=== PATIENT | male | born 1960 | race Caucasian/White ===

== ENCOUNTER → 2016-10-15 | Outpatient (REF) | payer OTHER ==
[~2016-10-15] MED LIST: ASPI1TAB PO; ATOR1TAB21 PO; CORE6.25 PO; GLUCTAB PO; HYDR-4266 PO; ISOS20TAB PO; MULT1TAB10 PO; PRIL20CA PO; SYNT112T2 PO; TORS100T12 PO; TRAD5TAB PO; VITAPRTA PO
[2016-10-15 19:02] LABS: PERCENT SATURATION 18.5 % (19.7-37.4)
== END ==
LOC: M LAB REF 16:55
PROVIDERS: ATTEND Internal Medicine Nephrology
DX: D50.9 Iron deficiency anemia, unspecified (principal)

== ENCOUNTER → 2016-11-12 | Outpatient (CLI) | payer OTHER ==
[~2016-11-12] MED LIST changes: -PRIL20CA PO; +PRIL20CA9 PO; +TORS100T PO; -TORS100T12 PO
[2016-11-12 10:17] LABS: FREE T4 1.2 NG/DL (0.76-1.46)
== END ==
LOC: M LAB 08:22
PROVIDERS: ATTEND Family Medicine
DX: E03.9 Hypothyroidism, unspecified (principal)

== ENCOUNTER → 2016-11-20 | Outpatient (CLI) | payer OTHER ==
[2016-11-20 13:26] LABS: ALBUMIN 3.8 GM/DL (3.2-5.2); CALCIUM LEVEL 8.9 MG/DL (8.5-10.1); CREATININE FOR GFR 2.17 MG/DL (0.70-1.30); GLOMERULAR FILTRATION RATE 33.8 (>56); MAGNESIUM LEVEL 2.7 MG/DL (1.8-2.4); PHOSPHORUS LEVEL 3.6 MG/DL (2.5-4.9); POTASSIUM SERUM 4.5 MEQ/L (3.5-5.1)
== END ==
LOC: M LAB 12:13
PROVIDERS: ATTEND Family Medicine
DX: N18.4 Chronic kidney disease, stage 4 (severe) (principal)

== ENCOUNTER → 2016-12-24 | Outpatient (REF) | payer OTHER | LOC: M SFHCPLAZ 10:44 | PROVIDERS: ATTEND Family Medicine | DX: E11.9 Type 2 diabetes mellitus without complications (principal); Z53.9 Procedure and treatment not carried out, unspecified reason ==

== ENCOUNTER → 2017-01-19 | Outpatient (CLI) | payer OTHER ==
[2017-01-19 13:16] LABS: ALBUMIN 3.8 GM/DL (3.2-5.2); CALCIUM LEVEL 8.7 MG/DL (8.5-10.1); CREATININE FOR GFR 3.2 MG/DL (0.70-1.30); GLOMERULAR FILTRATION RATE 21.6 (>56); PHOSPHORUS LEVEL 4.6 MG/DL (2.5-4.9); POTASSIUM SERUM 4.4 MEQ/L (3.5-5.1)
== END ==
LOC: M LAB 11:58
PROVIDERS: ATTEND Family Medicine
DX: E11.9 Type 2 diabetes mellitus without complications (principal)

== ENCOUNTER → 2017-01-26 | Outpatient (REF) | payer OTHER | LOC: M SFHCPLAZ 13:16 | PROVIDERS: ATTEND Family Medicine | DX: E11.9 Type 2 diabetes mellitus without complications (principal) ==

== ENCOUNTER → 2017-02-17 | Outpatient (CLI) | payer OTHER | LOC: M LAB 07:13 | PROVIDERS: ATTEND Family Medicine | DX: E03.9 Hypothyroidism, unspecified (principal) ==

== ENCOUNTER → 2017-03-09 | Outpatient (REF) | payer OTHER | LOC: M SFHCPLAZ 09:51 | PROVIDERS: ATTEND Family Medicine | DX: E11.9 Type 2 diabetes mellitus without complications (principal); N18.4 Chronic kidney disease, stage 4 (severe) ==

== ENCOUNTER → 2017-04-10 | Outpatient (CLI) | payer OTHER ==
[~2017-04-10] MED LIST changes: +HYDR-3910 PO; -HYDR-4266 PO
[2017-04-10 08:37] LABS: ALBUMIN 3.6 GM/DL (3.2-5.2); CREATININE FOR GFR 1.95 MG/DL (0.70-1.30); GLOMERULAR FILTRATION RATE 38.2 (>56); PHOSPHORUS LEVEL 3.4 MG/DL (2.5-4.9)
[2017-04-10 08:44] LABS: POTASSIUM SERUM 5.2 MEQ/L (3.5-5.1)
== END ==
LOC: M LAB 07:48
PROVIDERS: ATTEND Family Medicine
DX: N18.4 Chronic kidney disease, stage 4 (severe) (principal); E11.9 Type 2 diabetes mellitus without complications

== ENCOUNTER → 2017-06-12 | Outpatient (CLI) | payer OTHER ==
[2017-06-12 17:30] LABS: CALCIUM LEVEL 8.3 MG/DL (8.5-10.1); CREATININE FOR GFR 1.81 MG/DL (0.70-1.30); GLOMERULAR FILTRATION RATE 41.6 (>56); POTASSIUM SERUM 4.2 MEQ/L (3.5-5.1)
== END ==
LOC: M LAB 15:24
PROVIDERS: ATTEND Nurse Practitioner Family
DX: E87.5 Hyperkalemia (principal)

== ENCOUNTER → 2017-06-25 | Outpatient (REF) | payer OTHER ==
[2017-06-25 14:42] LABS: PERCENT SATURATION 21.1 % (19.7-50.0)
== END ==
LOC: M LAB REF 09:08
PROVIDERS: ATTEND Internal Medicine Nephrology
DX: D50.9 Iron deficiency anemia, unspecified (principal)

== ENCOUNTER → 2017-07-06 | Outpatient (CLI) | payer OTHER ==
[2017-07-06 15:15] LABS: MEAN CORPUSCULAR HEMOGLOBIN 28.7 pg (27.0-33.0); MEAN CORPUSCULAR HGB CONC 32.3 g/dl (32.0-36.5); MEAN CORPUSCULAR VOLUME 88.9 fl (80.0-96.0); RED CELL DISTRIBUTION WIDTH 15.4 % (11.5-14.5); WHITE BLOOD COUNT 7.4 10^3/uL (4.0-10.0)
== END ==
LOC: M LAB 14:24
PROVIDERS: ATTEND Nurse Practitioner Family
DX: D64.9 Anemia, unspecified (principal)

== ENCOUNTER → 2017-08-14 | Outpatient (CLI) | payer OTHER | LOC: M LAB 13:46 | PROVIDERS: ATTEND Family Medicine | DX: E11.9 Type 2 diabetes mellitus without complications (principal) ==

== ENCOUNTER → 2017-10-01 | Outpatient (REF) | payer OTHER | LOC: M LAB REF 13:10 | DX: D23.61 Other benign neoplasm of skin of right upper limb, including shoulder (principal) ==

== ENCOUNTER → 2018-01-04 | Outpatient (CLI) | payer OTHER ==
[2018-01-04 14:54] LABS: ALBUMIN 3.9 GM/DL (3.2-5.2); ANION GAP 6 MEQ/L (8-16); BLOOD UREA NITROGEN 50 MG/DL (7-18); CARBON DIOXIDE LEVEL 28 MEQ/L (21-32); CHLORIDE LEVEL 109 MEQ/L (98-107); CREATININE FOR GFR 2.36 MG/DL (0.70-1.30); GLOMERULAR FILTRATION RATE 30.5 (>56); GLUCOSE, FASTING 108 MG/DL (70-100); PHOSPHORUS LEVEL 4.1 MG/DL (2.5-4.9); POTASSIUM SERUM 4.3 MEQ/L (3.5-5.1); SODIUM LEVEL 143 MEQ/L (136-145)
== END ==
LOC: M LAB 13:45
DX: I50.42 Chronic combined systolic (congestive) and diastolic (congestive) heart failure (principal)
CPT/HCPCS: 80069

== ENCOUNTER 2018-01-26 10:19 | Inpatient (IN) | payer OTHER ==
[2018-01-26 11:32] LABS: BASO # 0.1 10^3/uL (0.0-0.2); BASO % 0.9 % (0.0-1.0); EOS # 0.4 10^3/uL (0.0-0.50); EOS % 3.2 % (0.0-3.0); HEMATOCRIT 24.9 % (42.0-52.0); IMMATURE GRANULOCYTE % 0.5 % (0-3.0); LYMPH # 2.5 10^3/uL (1.5-4.5); LYMPH % 21.9 % (24.0-44.0); MEAN CORPUSCULAR HEMOGLOBIN 26.6 pg (27.0-33.0); MEAN CORPUSCULAR HGB CONC 32.1 g/dl (32.0-36.5); MEAN CORPUSCULAR VOLUME 82.7 fl (80.0-96.0); MONO # 0.9 10^3/uL (0.0-0.8); MONO % 8.3 % (0.0-5.0); NEUTROPHILS # 7.3 10^3/uL (1.8-7.7); NEUTROPHILS % 65.2 % (36.0-66.0); PLATELET COUNT, AUTOMATED 305 10^3/uL (150-450); RED BLOOD COUNT 3.01 10^6/uL (4.30-6.10); RED CELL DISTRIBUTION WIDTH 14.7 % (11.5-14.5); WHITE BLOOD COUNT 11.3 10^3/uL (4.0-10.0)
[2018-01-26 12:00] LABS: ANION GAP 7 MEQ/L (8-16); BLOOD UREA NITROGEN 45 MG/DL (7-18); C REACTIVE PROTEIN QUANTITATIV 5.65 MG/DL (0.00-0.30); CALCIUM LEVEL 9.2 MG/DL (8.5-10.1); CARBON DIOXIDE LEVEL 27 MEQ/L (21-32); CHLORIDE LEVEL 103 MEQ/L (98-107); CREATININE FOR GFR 2.37 MG/DL (0.70-1.30); GLOMERULAR FILTRATION RATE 30.4 (>56); GLUCOSE, FASTING 119 MG/DL (70-100); POTASSIUM SERUM 4.8 MEQ/L (3.5-5.1); SODIUM LEVEL 137 MEQ/L (136-145)
[2018-01-26 12:05] LABS: ERYTHROCYTE SEDIMENTATION RATE 126 mm/hr (0-20)
[2018-01-26] MEDS ORDERED: GLUCAGON FOR INJ 1 MG VIAL (J1610) SC (15:00)
[2018-01-26] MEDS ORDERED: VANCOMYCIN HCL 750 MG, VIAL MATE ADAPTER 1 EACH in D5W 250 ML IV (15:00)
[2018-01-26] MEDS ORDERED: HEPARIN SOD (PORCINE) 5000 UNITS/ML VIAL IV (15:00)
[2018-01-26] MEDS ORDERED: GLUCOSE 4 GM CHEW TABLET PO (15:00)
[2018-01-26] MEDS ORDERED: DEXTROSE 50% 50 ML SYRINGE IV (15:00)
[2018-01-26] MEDS ORDERED: MORPHINE 4 MG/ML 1ML VIAL/SYRINGE (J2270) IV (15:15)
[2018-01-26] MEDS ORDERED: ONDANSETRON 4MG/2ML VIAL (J2405) IV (15:15)
[2018-01-26] MEDS: CEFEPIME HCL 1 GM in D5W MINI-BAG PLUS 50 ML IV (16:24)
[2018-01-26] MEDS: HEPARIN DRIP 25,000 UNITS in APPROPRIATE DILUENT 1 EA IV (16:25)
[2018-01-26 16:26] LABS: RETIC HEMOGLOBIN EQUIVALENT 27.6 pg (24-36); RETICULOCYTE # 31.6 10^9/L (17-77); RETICULOCYTE % 1.2 % (0.5-1.5)
[2018-01-26 16:57] LABS: FREE THYROXINE INDEX 4.8 % (1.4-3.8); T UPTAKE 37 % (33-40); THYROID STIMULATING HORMONE 0.177 uIU/ML (0.358-3.740)
[2018-01-26] MEDS: VANCOMYCIN HCL 1,000 MG, VIAL MATE ADAPTER 1 EACH in D5W 250 ML IV ×2 (17:00→18:23)
[2018-01-26 17:02] LABS: ESTIMATED AVERAGE GLUCOSE 134 MG/DL (60-110); HEMOGLOBIN A1c 6.3 %
[2018-01-26 17:02] LABS: BEDSIDE GLUCOSE 130 MG/DL (70-105)
[2018-01-26 17:23] LABS: FERRITIN 679 NG/ML (26-388); IRON (FE) 23 UG/DL (65-175); TOTAL IRON BINDING CAPACITY 209 UG/DL (250-450)
[2018-01-26] MEDS: HumaLOG INSULIN (NovoLOG) PER UNIT SC ×2 (17:43→20:52)
[2018-01-26 18:05] LABS: VITAMIN B12 LEVEL 450 PG/ML (247-911)
[2018-01-26 18:06] LABS: FOLATE 22.4 NG/ML (>5.4)
[2018-01-26] MEDS: ASPIRIN 81 MG ENTERIC TAB PO (18:23)
[2018-01-26] MEDS: MULTIVITAMINS/MINERALS THERAP 1 TAB PO (18:23)
[2018-01-26] MEDS: PANTOPRAZOLE 40MG TAB (PROTONIX) PO (18:23)
[2018-01-26 20:09] LABS: IMMEDIATE SPIN CROSSMATCH 1 1
[2018-01-26 20:42] LABS: BEDSIDE GLUCOSE 170 MG/DL (70-105)
[2018-01-26 20:47] LABS: APPEARANCE, URINE CLEAR (CLEAR); BACTERIA, URINE AUTO NEGATIVE (NEGATIVE); BILIRUBIN, URINE AUTO NEGATIVE (NEGATIVE); BLOOD, URINE BLOOD NEGATIVE (NEGATIVE); COLOR, URINE STRAW (YELLOW); GLUCOSE, URINE (UA) AUTO NEGATIVE (NEGATIVE); KETONE, URINE AUTO NEGATIVE (NEGATIVE); LEUKOCYTE ESTERASE, URINE AUTO NEGATIVE (NEGATIVE); NITRITE, URINE AUTO NEGATIVE (NEGATIVE); PROTEIN, URINE AUTO NEGATIVE (NEGATIVE); RBC, URINE AUTO 1 /HPF (0-3); SPECIFIC GRAVITY URINE AUTO 1.009 (1.002-1.035); SQUAMOUS EPITHELIAL CELL UR AU 0 /HPF (0-6); UROBILINOGEN, URINE AUTO 0.2 mg/dL (0.0-2.0); WBC, URINE AUTO 0 /HPF (0-3)
[2018-01-26 20:50] LABS: OSMOLALITY URINE 329 MOSM/KG (500-800)
[2018-01-26] MEDS: SENOKOT S TAB PO (20:52)
[2018-01-26] MEDS: ATORVASTATIN 20 MG TAB PO (20:52)
[2018-01-26] MEDS: CARVedilol 12.5 MG TAB PO (20:52)
[2018-01-26] MEDS: LACTOBACILLUS ACIDOPHILUS CAP (BACID) PO (20:52)
[2018-01-26 21:00] LABS: CHLORIDE,RANDOM URINE 12 MEQ/L; CREATININE,RANDOM URINE 64.1 MG/DL; POTASSIUM RANDOM URINE 22.2 MEQ/L; SODIUM,RANDOM URINE 29 MEQ/L; TOTAL PROTEIN,RANDOM URINE 22.4 MG/DL (0.0-12.0)
[2018-01-26] MEDS: ASCORBIC ACID 500 MG TAB PO (21:47)
[2018-01-26] MEDS: FERROUS SULFATE 325MG TAB PO (21:47)
[2018-01-26 22:43] LABS: PARTIAL THROMBOPLASTIN TIME 63.1 SECONDS (26.8-37.9)
[2018-01-27 04:41] LABS: HEMATOCRIT 24.4 % (42.0-52.0); HEMOGLOBIN 7.9 g/dl (13.5-17.5); MEAN CORPUSCULAR HEMOGLOBIN 26.2 pg (27.0-33.0); MEAN CORPUSCULAR HGB CONC 32.4 g/dl (32.0-36.5); MEAN CORPUSCULAR VOLUME 80.8 fl (80.0-96.0); PLATELET COUNT, AUTOMATED 207 10^3/uL (150-450); RED BLOOD COUNT 3.02 10^6/uL (4.30-6.10); RED CELL DISTRIBUTION WIDTH 14.3 % (11.5-14.5)
[2018-01-27 04:49] LABS: INR 1.22; PROTHROMBIN TIME 15.6 SECONDS (12.4-14.5)
[2018-01-27 04:50] LABS: PARTIAL THROMBOPLASTIN TIME 81.2 SECONDS (26.8-37.9)
[2018-01-27 04:56] LABS: ANION GAP 4 MEQ/L (8-16); BLOOD UREA NITROGEN 39 MG/DL (7-18); C REACTIVE PROTEIN QUANTITATIV 5.14 MG/DL (0.00-0.30); CALCIUM LEVEL 8.6 MG/DL (8.5-10.1); CARBON DIOXIDE LEVEL 29 MEQ/L (21-32); CHLORIDE LEVEL 107 MEQ/L (98-107); CREATININE FOR GFR 1.72 MG/DL (0.70-1.30); GLUCOSE, FASTING 93 MG/DL (70-100); MAGNESIUM LEVEL 2.5 MG/DL (1.8-2.4); POTASSIUM SERUM 3.9 MEQ/L (3.5-5.1); SODIUM LEVEL 140 MEQ/L (136-145)
[2018-01-27] MEDS ORDERED: LEVOTHYROXINE 100MCG TABLET (0.1MG) PO (06:00)
[2018-01-27] MEDS: LEVOTHYROXINE 150MCG TABLET (0.15MG) PO (06:24)
[2018-01-27] MEDS: HumaLOG INSULIN (NovoLOG) PER UNIT SC ×4 (06:43→21:00)
[2018-01-27] MEDS: LACTOBACILLUS ACIDOPHILUS CAP (BACID) PO ×2 (08:46→21:20)
[2018-01-27] MEDS: ASCORBIC ACID 500 MG TAB PO ×2 (08:46→21:20)
[2018-01-27] MEDS: PANTOPRAZOLE 40MG TAB (PROTONIX) PO (08:46)
[2018-01-27] MEDS: ASPIRIN 81 MG ENTERIC TAB PO (08:47)
[2018-01-27] MEDS: CARVedilol 12.5 MG TAB PO ×2 (08:47→21:20)
[2018-01-27] MEDS: FERROUS SULFATE 325MG TAB PO ×2 (08:47→21:20)
[2018-01-27] MEDS: SENOKOT S TAB PO ×2 (08:47→21:00)
[2018-01-27] MEDS: MULTIVITAMINS/MINERALS THERAP 1 TAB PO (08:49)
[2018-01-27 09:45] LABS: PARTIAL THROMBOPLASTIN TIME 73.1 SECONDS (26.8-37.9)
[2018-01-27 11:23] LABS: PARTIAL THROMBOPLASTIN TIME 55.8 SECONDS (26.8-37.9)
[2018-01-27 11:50] LABS: BEDSIDE GLUCOSE 121 MG/DL (70-105)
[2018-01-27] MEDS: GENTAMICIN SULF INJ 80MG/2ML VIAL (J1580) As Ordered (13:12)
[2018-01-27] MEDS ORDERED: TOBRAMYCIN SULF 1.2 GM VIAL As Ordered (13:21)
[2018-01-27] MEDS ORDERED: fentaNYL 100 MCG/2 ML INJECTION (J3010) As Ordered (14:03)
[2018-01-27] MEDS ORDERED: PROPOFOL 200 MG/20 ML VIAL As Ordered ×2 (14:03→14:29)
[2018-01-27] MEDS ORDERED: MIDAZOLAM INJ 2 MG/2 ML VIAL (J2250) As Ordered (14:03)
[2018-01-27] MEDS: LIDOCAINE 2% MDV 20 ML VIAL As Ordered (14:10)
[2018-01-27] MEDS: BUPIVACAINE HCL 0.5% 30 ML VIAL As Ordered (14:10)
[2018-01-27] MEDS: NS 1,000 ML IV (15:30)
[2018-01-27] MEDS ORDERED: MORPHINE 10 MG/ML 1ML VIAL (J2270) IV (15:30)
[2018-01-27] MEDS ORDERED: fentaNYL 100 MCG/2 ML INJECTION (J3010) IV (15:30)
[2018-01-27] MEDS ORDERED: ONDANSETRON 4MG/2ML VIAL (J2405) IV (15:30)
[2018-01-27] MEDS: CEFEPIME HCL 1 GM in D5W MINI-BAG PLUS 50 ML IV (15:49)
[2018-01-27] MEDS: TORSEMIDE 20 MG TAB PO (15:49)
[2018-01-27] MEDS: VANCOMYCIN HCL 1,000 MG, VIAL MATE ADAPTER 1 EACH in D5W 250 ML IV (16:35)
[2018-01-27 16:37] LABS: BEDSIDE GLUCOSE 139 MG/DL (70-105)
[2018-01-27 20:28] LABS: BEDSIDE GLUCOSE 149 MG/DL (70-105)
[2018-01-27] MEDS: HEPARIN DRIP 25,000 UNITS in APPROPRIATE DILUENT 1 EA IV (21:12)
[2018-01-27] MEDS: ATORVASTATIN 20 MG TAB PO (21:20)
[2018-01-28 02:53] LABS: HEMATOCRIT 26.8 % (42.0-52.0); HEMOGLOBIN 8.5 g/dl (13.5-17.5); MEAN CORPUSCULAR HGB CONC 31.7 g/dl (32.0-36.5); PLATELET COUNT, AUTOMATED 252 10^3/uL (150-450); RED BLOOD COUNT 3.27 10^6/uL (4.30-6.10); RED CELL DISTRIBUTION WIDTH 14.5 % (11.5-14.5); WHITE BLOOD COUNT 8.4 10^3/uL (4.0-10.0)
[2018-01-28 03:03] LABS: INR 1.12; PROTHROMBIN TIME 14.6 SECONDS (12.4-14.5)
[2018-01-28 03:14] LABS: ANION GAP 4 MEQ/L (8-16); BLOOD UREA NITROGEN 31 MG/DL (7-18); C REACTIVE PROTEIN QUANTITATIV 3.46 MG/DL (0.00-0.30); CALCIUM LEVEL 8.5 MG/DL (8.5-10.1); CARBON DIOXIDE LEVEL 30 MEQ/L (21-32); CHLORIDE LEVEL 107 MEQ/L (98-107); CREATININE FOR GFR 1.79 MG/DL (0.70-1.30); GLUCOSE, FASTING 89 MG/DL (70-100); MAGNESIUM LEVEL 2.5 MG/DL (1.8-2.4); POTASSIUM SERUM 3.9 MEQ/L (3.5-5.1); SODIUM LEVEL 141 MEQ/L (136-145)
[2018-01-28] MEDS: LEVOTHYROXINE 150MCG TABLET (0.15MG) PO (05:32)
[2018-01-28] MEDS: HumaLOG INSULIN (NovoLOG) PER UNIT SC ×4 (07:30→20:45)
[2018-01-28] MEDS: LACTOBACILLUS ACIDOPHILUS CAP (BACID) PO ×2 (08:53→20:51)
[2018-01-28] MEDS: PANTOPRAZOLE 40MG TAB (PROTONIX) PO (08:53)
[2018-01-28] MEDS: SENOKOT S TAB PO ×2 (08:53→20:51)
[2018-01-28] MEDS: FERROUS SULFATE 325MG TAB PO ×2 (08:53→20:51)
[2018-01-28] MEDS: ASPIRIN 81 MG ENTERIC TAB PO (08:53)
[2018-01-28] MEDS: MULTIVITAMINS/MINERALS THERAP 1 TAB PO (08:53)
[2018-01-28] MEDS: TORSEMIDE 20 MG TAB PO (08:53)
[2018-01-28] MEDS: ASCORBIC ACID 500 MG TAB PO ×2 (08:53→20:51)
[2018-01-28] MEDS: CARVedilol 12.5 MG TAB PO ×2 (08:54→20:51)
[2018-01-28 09:45] LABS: PARTIAL THROMBOPLASTIN TIME 74.1 SECONDS (26.8-37.9)
[2018-01-28 11:19] LABS: BEDSIDE GLUCOSE 174 MG/DL (70-105)
[2018-01-28] MEDS: CEFEPIME HCL 1 GM in D5W MINI-BAG PLUS 50 ML IV (15:25)
[2018-01-28] MEDS: VANCOMYCIN HCL 1,000 MG, VIAL MATE ADAPTER 1 EACH in D5W 250 ML IV (16:00)
[2018-01-28 16:40] LABS: BEDSIDE GLUCOSE 173 MG/DL (70-105)
[2018-01-28 20:37] LABS: BEDSIDE GLUCOSE 135 MG/DL (70-105)
[2018-01-28] MEDS: ATORVASTATIN 20 MG TAB PO (20:50)
[2018-01-29 05:07] LABS: HEMOGLOBIN 8.5 g/dl (13.5-17.5); MEAN CORPUSCULAR HEMOGLOBIN 26.9 pg (27.0-33.0); MEAN CORPUSCULAR HGB CONC 32.7 g/dl (32.0-36.5); MEAN CORPUSCULAR VOLUME 82.3 fl (80.0-96.0); PLATELET COUNT, AUTOMATED 236 10^3/uL (150-450); RED BLOOD COUNT 3.16 10^6/uL (4.30-6.10); RED CELL DISTRIBUTION WIDTH 14.4 % (11.5-14.5)
[2018-01-29 05:19] LABS: INR 1.14; PROTHROMBIN TIME 14.7 SECONDS (12.4-14.5)
[2018-01-29 05:34] LABS: ANION GAP 8 MEQ/L (8-16); BLOOD UREA NITROGEN 36 MG/DL (7-18); C REACTIVE PROTEIN QUANTITATIV 1.97 MG/DL (0.00-0.30); CALCIUM LEVEL 9.1 MG/DL (8.5-10.1); CARBON DIOXIDE LEVEL 30 MEQ/L (21-32); CHLORIDE LEVEL 105 MEQ/L (98-107); GLOMERULAR FILTRATION RATE 39.2 (>56); GLUCOSE, FASTING 100 MG/DL (70-100); MAGNESIUM LEVEL 2.5 MG/DL (1.8-2.4); POTASSIUM SERUM 4.2 MEQ/L (3.5-5.1); SODIUM LEVEL 143 MEQ/L (136-145)
[2018-01-29 05:44] LABS: PARTIAL THROMBOPLASTIN TIME 89.5 SECONDS (26.8-37.9)
[2018-01-29] MEDS: LEVOTHYROXINE 150MCG TABLET (0.15MG) PO (06:45)
[2018-01-29] MEDS: HumaLOG INSULIN (NovoLOG) PER UNIT SC ×4 (07:30→20:55)
[2018-01-29] MEDS: ASCORBIC ACID 500 MG TAB PO ×2 (08:26→20:10)
[2018-01-29] MEDS: TORSEMIDE 20 MG TAB PO (08:27)
[2018-01-29] MEDS: ASPIRIN 81 MG ENTERIC TAB PO (08:27)
[2018-01-29] MEDS: PANTOPRAZOLE 40MG TAB (PROTONIX) PO (08:27)
[2018-01-29] MEDS: SENOKOT S TAB PO ×3 (08:28→20:11)
[2018-01-29] MEDS: MULTIVITAMINS/MINERALS THERAP 1 TAB PO (08:28)
[2018-01-29] MEDS: FERROUS SULFATE 325MG TAB PO ×2 (08:28→20:10)
[2018-01-29] MEDS: LACTOBACILLUS ACIDOPHILUS CAP (BACID) PO ×2 (08:28→20:10)
[2018-01-29] MEDS: CARVedilol 12.5 MG TAB PO ×2 (08:30→21:00)
[2018-01-29 11:45] LABS: BEDSIDE GLUCOSE 183 MG/DL (70-105)
[2018-01-29] MEDS: CEFEPIME HCL 1 GM in D5W MINI-BAG PLUS 50 ML IV (15:11)
[2018-01-29] MEDS: HEPARIN DRIP 25,000 UNITS in APPROPRIATE DILUENT 1 EA IV (15:14)
[2018-01-29] MEDS: VANCOMYCIN HCL 1,000 MG, VIAL MATE ADAPTER 1 EACH in D5W 250 ML IV (16:06)
[2018-01-29 17:15] LABS: BEDSIDE GLUCOSE 185 MG/DL (70-105)
[2018-01-29 18:37] LABS: VANCOMYCIN LEVEL TROUGH 15.5 UG/ML (10.0-20.0)
[2018-01-29] MEDS: ATORVASTATIN 20 MG TAB PO (20:11)
[2018-01-29 20:19] LABS: BEDSIDE GLUCOSE 141 MG/DL (70-105)
[2018-01-30] MEDS: LEVOTHYROXINE 150MCG TABLET (0.15MG) PO (05:36)
[2018-01-30 05:40] LABS: HEMOGLOBIN 8.5 g/dl (13.5-17.5); MEAN CORPUSCULAR HEMOGLOBIN 26.3 pg (27.0-33.0); MEAN CORPUSCULAR HGB CONC 31.5 g/dl (32.0-36.5); MEAN CORPUSCULAR VOLUME 83.6 fl (80.0-96.0); PLATELET COUNT, AUTOMATED 227 10^3/uL (150-450); RED BLOOD COUNT 3.23 10^6/uL (4.30-6.10); RED CELL DISTRIBUTION WIDTH 14.4 % (11.5-14.5); WHITE BLOOD COUNT 8.4 10^3/uL (4.0-10.0)
[2018-01-30 05:50] LABS: INR 1.05; PROTHROMBIN TIME 13.9 SECONDS (12.4-14.5)
[2018-01-30 05:51] LABS: PARTIAL THROMBOPLASTIN TIME 35.7 SECONDS (26.8-37.9)
[2018-01-30 05:57] LABS: ANION GAP 6 MEQ/L (8-16); BLOOD UREA NITROGEN 40 MG/DL (7-18); C REACTIVE PROTEIN QUANTITATIV 1.39 MG/DL (0.00-0.30); CALCIUM LEVEL 8.6 MG/DL (8.5-10.1); CARBON DIOXIDE LEVEL 30 MEQ/L (21-32); CHLORIDE LEVEL 107 MEQ/L (98-107); CREATININE FOR GFR 2.13 MG/DL (0.70-1.30); GLOMERULAR FILTRATION RATE 34.4 (>56); GLUCOSE, FASTING 110 MG/DL (70-100); MAGNESIUM LEVEL 2.5 MG/DL (1.8-2.4); SODIUM LEVEL 143 MEQ/L (136-145)
[2018-01-30] MEDS: HumaLOG INSULIN (NovoLOG) PER UNIT SC ×4 (06:35→20:49)
[2018-01-30] MEDS ORDERED: LIDOCAINE 2% INJ 100 MG/5 ML SDV (FOR ANES.) As Ordered (07:48)
[2018-01-30] MEDS ORDERED: PROPOFOL 200 MG/20 ML VIAL As Ordered (07:48)
[2018-01-30] MEDS ORDERED: fentaNYL 100 MCG/2 ML INJECTION (J3010) As Ordered (07:48)
[2018-01-30] MEDS ORDERED: MIDAZOLAM INJ 2 MG/2 ML VIAL (J2250) As Ordered (07:48)
[2018-01-30] MEDS: ROPIvacaine 0.5% 30 ML INJECTION (J2795 PER 1MG) As Ordered (09:03)
[2018-01-30] MEDS: dexameTHASONE 4 MG/ML 1ML VIAL (J1100) As Ordered (09:05)
[2018-01-30] MEDS: NEOSPORIN GU IRRIG 20 ML VIAL As Ordered (09:05)
[2018-01-30] MEDS: LIDOCAINE 2% MDV 20 ML VIAL As Ordered (09:05)
[2018-01-30] MEDS: VANCOMYCIN HCL 500 MG/10 ML VIAL (J3370) As Ordered ×2 (09:05)
[2018-01-30] MEDS: BACITRACIN PWD 50,000 UNITS VIAL As Ordered (09:05)
[2018-01-30] MEDS: BUPIVACAINE HCL 0.5% 30 ML VIAL As Ordered (09:05)
[2018-01-30] MEDS ORDERED: PERCOCET 5MG/325MG TAB PO (10:00)
[2018-01-30] MEDS ORDERED: ONDANSETRON 4MG/2ML VIAL (J2405) IV (10:00)
[2018-01-30] MEDS ORDERED: fentaNYL 100 MCG/2 ML INJECTION (J3010) IV (10:00)
[2018-01-30] MEDS: LR 1,000 ML IV (10:10)
[2018-01-30] MEDS: LACTOBACILLUS ACIDOPHILUS CAP (BACID) PO ×2 (10:14→20:13)
[2018-01-30] MEDS: SENOKOT S TAB PO ×2 (10:14→20:14)
[2018-01-30] MEDS: PANTOPRAZOLE 40MG TAB (PROTONIX) PO (10:14)
[2018-01-30] MEDS: FERROUS SULFATE 325MG TAB PO ×2 (10:14→20:13)
[2018-01-30] MEDS: ASPIRIN 81 MG ENTERIC TAB PO (10:14)
[2018-01-30] MEDS: ASCORBIC ACID 500 MG TAB PO ×2 (10:15→20:13)
[2018-01-30] MEDS: MULTIVITAMINS/MINERALS THERAP 1 TAB PO (10:15)
[2018-01-30] MEDS: CARVedilol 12.5 MG TAB PO ×2 (10:15→20:13)
[2018-01-30] MEDS: HEPARIN DRIP 25,000 UNITS in APPROPRIATE DILUENT 1 EA IV ×2 (10:16→21:45)
[2018-01-30 11:36] LABS: BEDSIDE GLUCOSE 138 MG/DL (70-105)
[2018-01-30] MEDS: NAFCILLIN SOD 2 GM in D5W MINI-BAG PLUS 50 ML IV ×3 (12:31→23:58)
[2018-01-30 16:24] LABS: PARTIAL THROMBOPLASTIN TIME 56.8 SECONDS (26.8-37.9)
[2018-01-30 16:30] LABS: BEDSIDE GLUCOSE 160 MG/DL (70-105)
[2018-01-30] MEDS: ATORVASTATIN 20 MG TAB PO (20:13)
[2018-01-30 20:39] LABS: BEDSIDE GLUCOSE 159 MG/DL (70-105)
[2018-01-30 22:57] LABS: PARTIAL THROMBOPLASTIN TIME 72.1 SECONDS (26.8-37.9)
[2018-01-31] MEDS: NAFCILLIN SOD 2 GM in D5W MINI-BAG PLUS 50 ML IV ×3 (05:38→17:05)
[2018-01-31] MEDS: LEVOTHYROXINE 150MCG TABLET (0.15MG) PO (05:38)
[2018-01-31 06:02] LABS: HEMATOCRIT 26.4 % (42.0-52.0); HEMOGLOBIN 8.2 g/dl (13.5-17.5); MEAN CORPUSCULAR HEMOGLOBIN 26.4 pg (27.0-33.0); MEAN CORPUSCULAR HGB CONC 31.1 g/dl (32.0-36.5); MEAN CORPUSCULAR VOLUME 84.9 fl (80.0-96.0); PLATELET COUNT, AUTOMATED 193 10^3/uL (150-450); RED BLOOD COUNT 3.11 10^6/uL (4.30-6.10); RED CELL DISTRIBUTION WIDTH 14.7 % (11.5-14.5); WHITE BLOOD COUNT 8.4 10^3/uL (4.0-10.0)
[2018-01-31 06:12] LABS: INR 1.19; PROTHROMBIN TIME 15.4 SECONDS (12.4-14.5)
[2018-01-31 06:20] LABS: ANION GAP 7 MEQ/L (8-16); BLOOD UREA NITROGEN 41 MG/DL (7-18); C REACTIVE PROTEIN QUANTITATIV 1.02 MG/DL (0.00-0.30); CALCIUM LEVEL 8.4 MG/DL (8.5-10.1); CARBON DIOXIDE LEVEL 28 MEQ/L (21-32); CHLORIDE LEVEL 109 MEQ/L (98-107); CREATININE FOR GFR 2.04 MG/DL (0.70-1.30); GLOMERULAR FILTRATION RATE 36.1 (>56); GLUCOSE, FASTING 121 MG/DL (70-100); MAGNESIUM LEVEL 2.4 MG/DL (1.8-2.4); POTASSIUM SERUM 4.1 MEQ/L (3.5-5.1); SODIUM LEVEL 144 MEQ/L (136-145)
[2018-01-31 06:39] LABS: PARTIAL THROMBOPLASTIN TIME 84.4 SECONDS (26.8-37.9)
[2018-01-31] MEDS: ASPIRIN 81 MG ENTERIC TAB PO (08:31)
[2018-01-31] MEDS: HumaLOG INSULIN (NovoLOG) PER UNIT SC ×4 (08:31→21:00)
[2018-01-31] MEDS: ASCORBIC ACID 500 MG TAB PO ×2 (08:31→21:38)
[2018-01-31] MEDS: LACTOBACILLUS ACIDOPHILUS CAP (BACID) PO ×2 (08:32→21:00)
[2018-01-31] MEDS: MULTIVITAMINS/MINERALS THERAP 1 TAB PO (08:32)
[2018-01-31] MEDS: FERROUS SULFATE 325MG TAB PO ×2 (08:32→21:39)
[2018-01-31] MEDS: PANTOPRAZOLE 40MG TAB (PROTONIX) PO (08:32)
[2018-01-31] MEDS: CARVedilol 12.5 MG TAB PO ×2 (08:33→21:39)
[2018-01-31] MEDS: SENOKOT S TAB PO ×2 (08:33→21:00)
[2018-01-31 12:20] LABS: BEDSIDE GLUCOSE 118 MG/DL (70-105)
[2018-01-31] MEDS: APIXABAN 5 MG TAB (ELIQUIS) PO ×2 (12:24→21:39)
[2018-01-31 17:07] LABS: BEDSIDE GLUCOSE 138 MG/DL (70-105)
[2018-01-31 21:03] LABS: BEDSIDE GLUCOSE 141 MG/DL (70-105)
[2018-01-31] MEDS: ATORVASTATIN 20 MG TAB PO (21:39)
[2018-02-01] MEDS: NAFCILLIN SOD 2 GM in D5W MINI-BAG PLUS 50 ML IV ×3 (00:15→11:55)
[2018-02-01] MEDS: LEVOTHYROXINE 150MCG TABLET (0.15MG) PO (05:57)
[2018-02-01 06:23] LABS: HEMATOCRIT 26.3 % (42.0-52.0); HEMOGLOBIN 8.2 g/dl (13.5-17.5); MEAN CORPUSCULAR HEMOGLOBIN 26.5 pg (27.0-33.0); MEAN CORPUSCULAR HGB CONC 31.2 g/dl (32.0-36.5); MEAN CORPUSCULAR VOLUME 84.8 fl (80.0-96.0); PLATELET COUNT, AUTOMATED 195 10^3/uL (150-450); RED CELL DISTRIBUTION WIDTH 15.2 % (11.5-14.5); WHITE BLOOD COUNT 9.9 10^3/uL (4.0-10.0)
[2018-02-01 06:48] LABS: ANION GAP 7 MEQ/L (8-16); BLOOD UREA NITROGEN 38 MG/DL (7-18); C REACTIVE PROTEIN QUANTITATIV 1.02 MG/DL (0.00-0.30); CALCIUM LEVEL 8.7 MG/DL (8.5-10.1); CARBON DIOXIDE LEVEL 26 MEQ/L (21-32); CHLORIDE LEVEL 111 MEQ/L (98-107); CREATININE FOR GFR 1.97 MG/DL (0.70-1.30); GLOMERULAR FILTRATION RATE 37.6 (>56); GLUCOSE, FASTING 111 MG/DL (70-100); MAGNESIUM LEVEL 2.5 MG/DL (1.8-2.4); SODIUM LEVEL 144 MEQ/L (136-145)
[2018-02-01 06:50] LABS: PARTIAL THROMBOPLASTIN TIME 40.3 SECONDS (26.8-37.9)
[2018-02-01 06:58] LABS: INR 1.24; PROTHROMBIN TIME 15.9 SECONDS (12.4-14.5)
[2018-02-01] MEDS: PANTOPRAZOLE 40MG TAB (PROTONIX) PO (08:34)
[2018-02-01] MEDS: ASPIRIN 81 MG ENTERIC TAB PO (08:34)
[2018-02-01] MEDS: APIXABAN 5 MG TAB (ELIQUIS) PO (08:34)
[2018-02-01] MEDS: MULTIVITAMINS/MINERALS THERAP 1 TAB PO (08:34)
[2018-02-01] MEDS: LACTOBACILLUS ACIDOPHILUS CAP (BACID) PO (08:34)
[2018-02-01] MEDS: HumaLOG INSULIN (NovoLOG) PER UNIT SC ×2 (08:34→11:55)
[2018-02-01] MEDS: SENOKOT S TAB PO (08:35)
[2018-02-01] MEDS: CARVedilol 12.5 MG TAB PO (08:35)
[2018-02-01] MEDS: FERROUS SULFATE 325MG TAB PO (08:35)
[2018-02-01] MEDS: ASCORBIC ACID 500 MG TAB PO (08:35)
[2018-02-01 11:56] LABS: BEDSIDE GLUCOSE 131 MG/DL (70-105)
[2018-02-03 14:15] LABS: ANTI THROMBIN 3 ANTIGEN IMMUNO 99 % (72-124); ANTI THROMBIN 3 FUNCT ACTIVITY 141 % (75-135); PROTEIN C ANTIGEN 93 % (60-150); PROTEIN S ANTIGEN FREE 96 % (57-157); PROTEIN S ANTIGEN TOTAL 112 % (60-150)
[2018-02-06 00:07] LABS: HOMOCYST(E)INE SERUM 17.1 umol/L (0.0-15.0)
== END 2018-02-01 13:50 | disposition home or self-care (01) | DRG 314 ==
LOC: M MSPAV 01-29 04:25 → M ED 10:19 → M ED INP 15:01 → M PCU 15:44
PROC: 0Y6Q0Z2 Detachment at Left 1st Toe, Mid, Open Approach (ICD-10-PCS; principal; 2018-01-27 13:57)
PROC: 0DBR0ZZ Excision of Anal Sphincter, Open Approach (ICD-10-PCS; 2018-01-27 13:57)
DX: M86.472 Chronic osteomyelitis with draining sinus, left ankle and foot (principal); I42.0 Dilated cardiomyopathy; D68.2 Hereditary deficiency of other clotting factors; N18.4 Chronic kidney disease, stage 4 (severe); E11.69 Type 2 diabetes mellitus with other specified complication; I13.0 Hypertensive heart and chronic kidney disease with heart failure and stage 1 through stage 4 chronic kidney disease, or unspecified chronic kidney disease; I50.22 Chronic systolic (congestive) heart failure; I82.512 Chronic embolism and thrombosis of left femoral vein; D63.1 Anemia in chronic kidney disease; D50.9 Iron deficiency anemia, unspecified; E03.9 Hypothyroidism, unspecified; E78.5 Hyperlipidemia, unspecified; Z79.899 Other long term (current) drug therapy; Z79.82 Long term (current) use of aspirin

== ENCOUNTER → 2018-03-18 | Outpatient (CLI) | payer OTHER | LOC: M RAD 12:59 | DX: R22.42 Localized swelling, mass and lump, left lower limb (principal) | CPT/HCPCS: 93971 ==

== ENCOUNTER → 2018-05-21 | Outpatient (REF) | payer OTHER ==
[2018-05-21 13:46] LABS: FERRITIN 435 NG/ML (26-388); IRON (FE) 53 UG/DL (65-175); PERCENT SATURATION 19.1 % (19.7-50.0); TOTAL IRON BINDING CAPACITY 278 UG/DL (250-450)
== END ==
LOC: M LAB REF 13:19
DX: D50.9 Iron deficiency anemia, unspecified (principal)

== ENCOUNTER → 2018-07-01 | Outpatient (CLI) | payer OTHER | LOC: M RAD 09:20 | DX: M79.605 Pain in left leg (principal); R22.42 Localized swelling, mass and lump, left lower limb; I70.202 Unspecified atherosclerosis of native arteries of extremities, left leg | CPT/HCPCS: 93971 ==

== ENCOUNTER → 2018-08-10 | Outpatient (CLI) | payer OTHER ==
[~2018-08-10] MED LIST changes: -ASPI1TAB PO; -ATOR1TAB21 PO; -CORE6.25 PO; -GLUCTAB PO; +HEPARIN 1,000 UNITS/ML 10ML VIAL (FOR RADIOLOGY& DIALYSIS ONLY) As Ordered; -HYDR-3910 PO; -ISOS20TAB PO; +ISOVUE-300 61% 50ML VIAL (Q9967) As Ordered; +LIDOCAINE 2% MDV 20 ML VIAL As Ordered; +MIDAZOLAM INJ 2 MG/2 ML VIAL (J2250) As Ordered; -MULT1TAB10 PO; -PRIL20CA9 PO; -SYNT112T2 PO; -TORS100T PO; -TRAD5TAB PO; -VITAPRTA PO; +fentaNYL 100 MCG/2 ML INJECTION (J3010) As Ordered
[2018-08-10 08:34] LABS: ANION GAP 9 MEQ/L (8-16); BLOOD UREA NITROGEN 43 MG/DL (7-18); CALCIUM LEVEL 7.2 MG/DL (8.5-10.1); CARBON DIOXIDE LEVEL 19 MEQ/L (21-32); CHLORIDE LEVEL 119 MEQ/L (98-107); CREATININE FOR GFR 1.67 MG/DL (0.70-1.30); GLOMERULAR FILTRATION RATE 45.4 (>56); GLUCOSE, FASTING 106 MG/DL (70-100); POTASSIUM SERUM 3.7 MEQ/L (3.5-5.1); SODIUM LEVEL 147 MEQ/L (136-145)
== END | disposition home or self-care (01) ==
LOC: M IRPRO 07:07
DX: I70.212 Atherosclerosis of native arteries of extremities with intermittent claudication, left leg (principal); N18.9 Chronic kidney disease, unspecified
CPT/HCPCS: 37224

== ENCOUNTER → 2018-08-19 | Outpatient (CLI) | payer OTHER ==
[2018-08-19 09:27] LABS: CHOLESTEROL LEVEL 340 MG/DL (<200); CHOLESTEROL RISK RATIO 9.444 (<5); HDL CHOLESTEROL 36 MG/DL (>40); NON-HDL-C 304 MG/DL; TRIGLYCERIDES LEVEL 593 MG/DL (<150)
[2018-08-19 09:35] LABS: THYROID STIMULATING HORMONE 0.138 uIU/ML (0.358-3.740)
[2018-08-19 11:35] LABS: TOTAL 25(OH) VITAMIN D 45.6 NG/ML (30.0-100.0)
[2018-08-19 12:53] LABS: ESTIMATED AVERAGE GLUCOSE 97 MG/DL (60-110)
== END ==
LOC: M LAB 08:31
DX: E03.9 Hypothyroidism, unspecified (principal); E55.9 Vitamin D deficiency, unspecified
CPT/HCPCS: 84443

== ENCOUNTER → 2018-09-07 | Outpatient (CLI) | payer OTHER ==
[2018-09-07 08:18] LABS: HEMATOCRIT 29.7 % (42.0-52.0); HEMOGLOBIN 9.5 g/dl (13.5-17.5); MEAN CORPUSCULAR HEMOGLOBIN 27.9 pg (27.0-33.0); MEAN CORPUSCULAR VOLUME 87.4 fl (80.0-96.0); PLATELET COUNT, AUTOMATED 150 10^3/uL (150-450); RED CELL DISTRIBUTION WIDTH 14.7 % (11.5-14.5); WHITE BLOOD COUNT 7.6 10^3/uL (4.0-10.0)
[2018-09-07 08:39] LABS: ALBUMIN 3.9 GM/DL (3.2-5.2); ANION GAP 7 MEQ/L (8-16); BLOOD UREA NITROGEN 42 MG/DL (7-18); CARBON DIOXIDE LEVEL 26 MEQ/L (21-32); CHLORIDE LEVEL 110 MEQ/L (98-107); CREATININE FOR GFR 1.88 MG/DL (0.70-1.30); GLOMERULAR FILTRATION RATE 39.6 (>56); GLUCOSE, FASTING 104 MG/DL (70-100); PHOSPHORUS LEVEL 3.9 MG/DL (2.5-4.9); POTASSIUM SERUM 4.5 MEQ/L (3.5-5.1); SODIUM LEVEL 143 MEQ/L (136-145)
== END ==
LOC: M LAB 07:15
DX: I25.10 Atherosclerotic heart disease of native coronary artery without angina pectoris (principal)
CPT/HCPCS: 80069

== ENCOUNTER → 2018-10-18 | Outpatient (REF) | payer OTHER ==
[~2018-10-18] MED LIST changes: +ALOG6.25 PO; +ASPI1TAB PO; +ATOR1TAB21 PO; +CARV12.5 PO; +CORE6.25 PO; +ELIQ5TAB PO; +ELIQ5TAB4 PO; +FERR325T3 PO; +GLUCTAB PO; -HEPARIN 1,000 UNITS/ML 10ML VIAL (FOR RADIOLOGY& DIALYSIS ONLY) As Ordered; +HYDR-3910 PO; +ISOS20TAB PO; -ISOVUE-300 61% 50ML VIAL (Q9967) As Ordered; +KEFL500C17 PO; +LEVO150T7 PO; +LEVO200T4 PO; -LIDOCAINE 2% MDV 20 ML VIAL As Ordered; +LISI-538 PO; -MIDAZOLAM INJ 2 MG/2 ML VIAL (J2250) As Ordered; +MULT1TAB10 PO; +PRIL20CA9 PO; +SYNT100T PO; +SYNT112T2 PO; +TORS100T PO; +TORS20TA2 PO; +TRAD5TAB PO; +VITA50005 PO; +VITAPRTA PO; +VITMTA PO; -fentaNYL 100 MCG/2 ML INJECTION (J3010) As Ordered
[2018-10-18 12:57] LABS: HEMATOCRIT 24.7 % (42.0-52.0); MEAN CORPUSCULAR HEMOGLOBIN 27.5 pg (27.0-33.0); MEAN CORPUSCULAR HGB CONC 32.4 g/dl (32.0-36.5); MEAN CORPUSCULAR VOLUME 84.9 fl (80.0-96.0); PLATELET COUNT, AUTOMATED 218 10^3/uL (150-450); RED BLOOD COUNT 2.91 10^6/uL (4.30-6.10)
== END ==
LOC: M LAB REF 12:39
PROVIDERS: ATTEND Thoracic Surgery (Cardiothoracic Vascular Surgery)
DX: I25.118 Atherosclerotic heart disease of native coronary artery with other forms of angina pectoris (principal); I50.9 Heart failure, unspecified

== ENCOUNTER → 2018-11-01 | Outpatient (REF) | payer OTHER ==
[2018-11-01 18:37] LABS: C REACTIVE PROTEIN QUANTITATIV 1.45 MG/DL (0.00-0.30); PERCENT SATURATION 13.8 % (19.7-50.0)
== END ==
LOC: M LAB REF 17:52
PROVIDERS: ATTEND Internal Medicine Nephrology
DX: D50.9 Iron deficiency anemia, unspecified (principal); D63.1 Anemia in chronic kidney disease; N39.0 Urinary tract infection, site not specified; N18.9 Chronic kidney disease, unspecified

== ENCOUNTER → 2018-11-10 | Outpatient (REF) | payer OTHER | LOC: M SFHCPLAZ 12:38 | PROVIDERS: ATTEND Family Medicine | DX: E03.9 Hypothyroidism, unspecified (principal) ==

== ENCOUNTER → 2019-01-07 | Outpatient (CLI) | payer OTHER ==
[~2019-01-07] MED LIST changes: +ISOS1TAB11 PO; -ISOS20TAB PO
[2019-01-07 10:25] LABS: INR 1.14; PROTHROMBIN TIME 14.8 SECONDS (12.1-14.4)
== END ==
LOC: M LAB 09:06
PROVIDERS: ATTEND Physician Assistant
DX: I25.10 Atherosclerotic heart disease of native coronary artery without angina pectoris (principal); I73.9 Peripheral vascular disease, unspecified

== ENCOUNTER → 2019-02-21 | Outpatient (CLI) | payer OTHER ==
[~2019-02-21] MED LIST changes: -ASPI1TAB PO; +ASPI81TA26 PO
--- NOTE | 2019-02-22 09:39 | REP ---
Clinical: Left lower extremity symptomatology. Technique: Real time bonilla scale and color Doppler evaluation of the left lower extremity arterial vasculature using linear high frequency transducer. Findings: History of left lower extremity angioplasty on 08/24/2018. The ankle to brachial index of the left lower extremity is 1.1. Color Doppler interrogation demonstrates normal triphasic wave patterns and velocities from the common femoral vein through the mid superficial femoral artery with mild stenosis and subsequent downstream monophasic wave patterns. Left inguinal/groin nodes are identified measuring up to 3.8 x 1.5 x 2.3 cm along with marked subcutaneous edema throughout the left lower extremity. PSV(cm/sec) LEFT Common femoral artery 101.7 cm/s Profunda femoris artery 87.6 cm/s Proximal superficial femoral artery 109.1 cm/s Mid superficial femoral artery 86.8 cm/s Distal superficial femoral artery 168.3 cm/s Popliteal artery 68.8 cm/s Proximal TAYLOR 60.5 cm/s Tibioperoneal trunk 115.0 cm/s Proximal DRY WALL INSTALLER 42.2 cm/s Distal DRY WALL INSTALLER 34.9 cm/s Distal TAYLOR 83.5 cm/s Impression: 1. Findings are consistent with area of stenosis at the in the distal superficial femoral artery. 2. Inguinal adenopathy and diffuse subcutaneous edema to the left lower extremity noted. Electronically Signed by Chris Sage MD 02/22/2019 09:30 A
== END ==
LOC: M RAD 11:12
PROVIDERS: ATTEND Physician Assistant
DX: I70.213 Atherosclerosis of native arteries of extremities with intermittent claudication, bilateral legs (principal)

== ENCOUNTER → 2019-04-01 | Outpatient (REF) | payer OTHER ==
[2019-04-04 13:59] LABS: PERCENT SATURATION 22.2 % (19.7-50.0)
== END ==
LOC: M LAB REF 12:50
PROVIDERS: ATTEND Internal Medicine Nephrology
DX: D50.9 Iron deficiency anemia, unspecified (principal)

== ENCOUNTER → 2019-08-12 | Outpatient (REF) | payer OTHER ==
[2019-08-12 17:50] LABS: PERCENT SATURATION 21.6 % (19.7-50.0)
== END ==
LOC: M LAB REF 17:17
PROVIDERS: ATTEND Nurse Practitioner Family
DX: D50.9 Iron deficiency anemia, unspecified (principal)

== ENCOUNTER → 2019-11-01 | Outpatient (REF) | payer OTHER ==
[2019-11-01 11:21] LABS: HEMATOCRIT 30.4 % (42.0-52.0); HEMOGLOBIN 9.4 g/dl (13.5-17.5); MEAN CORPUSCULAR HEMOGLOBIN 28.6 pg (27.0-33.0); MEAN CORPUSCULAR HGB CONC 30.9 g/dl (32.0-36.5); MEAN CORPUSCULAR VOLUME 92.4 fl (80.0-96.0); PLATELET COUNT, AUTOMATED 135 10^3/uL (150-450); RED BLOOD COUNT 3.29 10^6/uL (4.30-6.10); WHITE BLOOD COUNT 7.3 10^3/uL (4.0-10.0)
[2019-11-01 11:56] LABS: HEMOGLOBIN A1c 5.9 %
[2019-11-01 12:01] LABS: CHOLESTEROL RISK RATIO 5.406 (<5); THYROID STIMULATING HORMONE 2.14 uIU/ML (0.358-3.740)
== END ==
LOC: M SFHCPLAZ 09:48
PROVIDERS: ATTEND Family Medicine
DX: E11.9 Type 2 diabetes mellitus without complications (principal); E03.9 Hypothyroidism, unspecified; E78.2 Mixed hyperlipidemia; R23.1 Pallor

== ENCOUNTER → 2020-01-05 | Outpatient (REF) | payer OTHER ==
[2020-01-06 14:00] LABS: PERCENT SATURATION 29.6 % (19.7-50.0)
== END ==
LOC: M LAB REF 13:01
PROVIDERS: ATTEND Nurse Practitioner Family
DX: D50.9 Iron deficiency anemia, unspecified (principal)

== ENCOUNTER → 2020-06-18 | Outpatient (REF) | payer OTHER ==
[2020-06-18 18:59] LABS: PERCENT SATURATION 29.5 % (19.7-50.0)
== END ==
LOC: M LAB REF 17:12
PROVIDERS: ATTEND Internal Medicine Nephrology
DX: D50.9 Iron deficiency anemia, unspecified (principal)

== ENCOUNTER → 2021-03-12 | Outpatient (REF) | payer OTHER ==
[~2021-03-12] MED LIST changes: -LISI-538 PO; +LISI20TA33 PO
[2021-03-12 17:59] LABS: HEMOGLOBIN A1c 6.3 %
== END ==
LOC: M SFHCPLAZ 14:55
PROVIDERS: ATTEND Family Medicine
DX: E03.9 Hypothyroidism, unspecified (principal); E11.9 Type 2 diabetes mellitus without complications

== ENCOUNTER → 2021-07-24 | Outpatient (CLI) | payer OTHER ==
[~2021-07-24] MED LIST changes: +ERGO500029 PO
== END ==
LOC: M LABSMTC 11:44
PROVIDERS: ATTEND Anesthesiology
DX: Z01.812 Encounter for preprocedural laboratory examination (principal); Z20.822 Contact with and (suspected) exposure to COVID-19

== ENCOUNTER 2021-07-29 10:19 | Day surgery (SDC) | payer OTHER ==
[~2021-07-29] VITALS: Ht 175.3 cm; Wt 112.9 kg
[~2021-07-29 10:19] MED LIST changes: +DUOVISC (0.50ML VISCOAT/0.85ML PROVISC) OPHTH KIT As Ordered ONE; +LIDOCAINE 1% SDV 5ML VIAL As Ordered ONE; +LR 1,000 ML IV SCH; +MIDAZOLAM INJ 2MG/2ML VIAL (J2250 PER 1MG) As Ordered ONE; +fentaNYL 100 MCG/2 ML INJECTION (J3010) As Ordered ONE
--- OUTSIDE RECORDS SUMMARY | 2021-07-29 10:25 | CCD ---
Author Author [facility] Address Unknown Phone Unavailable Care Team Providers Care Car Dropper Name Role Phone Titi, L Cynthia PA Unavailable Unavailable Titi, L Cynthia PA Unavailable Unavailable Titi, L Cynthia PA Unavailable Unavailable Titi, L Cynthia PA Unavailable Unavailable Titi, L Cynthia PA Unavailable Unavailable Titi, L Cynthia PA Unavailable Unavailable Titi, L Cynthia PA Unavailable Unavailable Titi, L Cynthia PA Unavailable Unavailable Titi, L Cynthia PA Unavailable Unavailable Titi, L Cynthia PA Unavailable Unavailable Titi, L Cynthia PA Unavailable Unavailable Titi, L Cynthia PA Unavailable Unavailable Titi, L Cynthia PA Unavailable Unavailable Titi, L Cynthia PA Unavailable Unavailable Titi, L Cynthia PA Unavailable Unavailable Titi, L Cynthia PA Unavailable Unavailable Titi, L Cynthia PA Unavailable Unavailable Titi, L Cynthia PA Unavailable Unavailable Titi, L Cynthia PA Unavailable Unavailable Titi, L Cynthia PA Unavailable Unavailable Titi, L Cynthia PA Unavailable Unavailable Titi, L Cynthia PA Unavailable Unavailable Titi, L Cynthia PA Unavailable Unavailable NIKOLAY, L KATIE PA Unavailable Unavailable NIKOLAY, L KATIE PA Unavailable Unavailable NIKOLAY, L KATIE PA Unavailable Unavailable NIKOLAY, L KATIE PA Unavailable Unavailable NIKOLAY, L KATIE PA Unavailable Unavailable NIKOLAY, L KATIE PA Unavailable Unavailable NIKOLAY, L KATIE PA Unavailable Unavailable NIKOLAY, L KATIE PA Unavailable Unavailable NIKOLAY, L KATIE PA Unavailable Unavailable NIKOLAY, L KATIE PA Unavailable Unavailable NIKOLAY, L KATIE PA Unavailable Unavailable NIKOLAY, L KATIE PA Unavailable Unavailable NIKOLAY, L KATIE PA Unavailable Unavailable NIKOLAY, L KATIE PA Unavailable Unavailable NIKOLAY, L KATIE PA Unavailable Unavailable NIKOLAY, L KATIE PA Unavailable Unavailable Re-disclosure Warning The records that you are about to access may contain information from federally-assisted alcohol or drug abuse programs. If such information is present, then the following federally mandated warning applies: This information has been disclosed to you from records protected by federal confidentiality rules (42 CFR part 2). The federal rules prohibit you from making any further disclosure of this information unless further disclosure is expressly permitted by the written consent of the person to whom it pertains or as otherwise permitted by 42 CFR part 2. A general authorization for the release of medical or other information is NOT sufficient for this purpose. The Federal rules restrict any use of the information to criminally investigate or prosecute any alcohol or drug abuse patient.The records that you are about to access may contain highly sensitive health information, the redisclosure of which is protected by Article 27-F of the [facility] Public Health law. If you continue you may have access to information: Regarding HIV / AIDS; Provided by facilities licensed or operated by the [facility] Office of Mental Health; or Provided by the [facility] Office for People With Developmental Disabilities. If such information is present, then the following [facility] mandated warning applies: This information has been disclosed to you from confidential records which are protected by state law. State law prohibits you from making any further disclosure of this information without the specific written consent of the person to whom it pertains, or as otherwise permitted by law. Any unauthorized further disclosure in violation of state law may result in a fine or prison sentence or both. A general authorization for the release of medical or other information is NOT sufficient authorization for further disc losure. Family History Family Member Name Family Member Gender Family Member Status Date o f Status Description Data Source(s) Unknown Male [facility] Unknown Female Problem [facility]) Unknown Female Problem [facility] ([facility]) Unknown Female Problem [facility] ([facility]) Encounters Encounter Providers Location Date Indications Data Source(s ) [place] [address] [facility] [address] 06/04/2021 12:00:00 AM EDT eCW1 ([facility]) Outpatient [address] [facility] [place] [address] 05/03/2021 12:00:00 AM EDT [facility]1 ([facility]) Unknown [address] [facility] [place] [address] 04/29/2021 12:00:00 AM EDT eCW1 ([facility]) [place] [address] [facility] [place] [address] 03/18/2021 12:00:00 AM EDT eCW1 ([facility]) [place] [address] [facility] [place] [address] 03/13/2021 12:00:00 AM EDT eCW1 ([facility]) Outpatient [address] [facility] [place] [address] 03/12/2021 12:00:00 AM EDT eCW1 ([facility]) Outpatient Attender: KATIE BHANDARI Main Office 02/22/2021 0 1:00:00 PM EDT [facility] ([facility]) Unknown [address] [facility] [place] [address] 01/10/2021 12:00:00 AM EDT eCW1 ([facility]) Unknown [address] [facility] [place] [address] 01/10/2021 12:00:00 AM EDT eCW1 ([facility]) Unknown [address] [facility] [place] [address] 08/27/2020 12:00:00 AM EST eCW1 ([facility]) [place] [address] [facility] [address] 08/27/2020 12:00:00 AM EST eCW1 ([facility]) Outpatient Attender: Cynthia BHANDARI Main Office 07/24/2020 11:45:0 0 AM EDT MED[facility] ([facility] Immunizations Vaccine Date Status Description Data Source(s) COVID-19 VACCINE Moderna 03/20/2021 12:00:00 AM EDT completed NYSIIS Vaccine Series Complete: YESThis Data wa s Submitted to [facility] Via [employer]. COVID-19 VACCINE Moderna 02/20/2021 12:00:00 AM EDT completed NYSIIS Vaccine Series Complete: NOThis Data was Submitted to [facility] Via [employer]. influenza, recombinant, quadrIvalent,injectable, prese rvative free 08/27/2020 08:35:00 AM EST completed eCW1 ([facility]) influenza, recombinant, quadrIvalent,injectable, prese rvative free 08/27/2020 08:35:00 AM EST completed eCW1 ([facility]) influenza, recombinant, quadrIvalent,injectable, prese rvative free 08/27/2020 08:35:00 AM EST completed eCW1 ([facility]) influenza, recombinant, quadrIvalent,injectable, prese rvative free 08/27/2020 08:35:00 AM EST completed eCW1 ([facility]) influenza, recombinant, quadrIvalent,injectable, prese rvative free 08/27/2020 08:35:00 AM EST completed eCW1 ([facility]) influenza, recombinant, quadrIvalent,injectable, prese rvative free 08/27/2020 08:35:00 AM EST completed eCW1 ([facility]) influenza, recombinant, quadrIvalent,injectable, prese rvative free 08/27/2020 08:35:00 AM EST completed eCW1 ([facility]) influenza, recombinant, quadrIvalent,injectable, prese rvative free 08/27/2020 08:35:00 AM EST completed eCW1 ([facility]) influenza, recombinant, quadrIvalent,injectable, prese rvative free 08/27/2020 08:35:00 AM EST completed eCW1 ([facility]) influenza, recombinant, quadrIvalent,injectable, prese rvative free 08/27/2020 08:35:00 AM EST completed eCW1 ([facility]) Medications Medication Brand Name Start Date Product Form Dose Route Admi nistrative Instructions Pharmacy Instructions Status Indications Reaction Description Data Source(s) Levothyroxine Sodium 0.025 MG Oral Tablet Levothyroxin e Sodium 25 MCG Levothyroxine Sodium 25 MCG 03/18/2021 12:00:00 AM EDT active Levothyroxine Sodium 25 MCG eCW1 ([facility]) Levothyroxine Sodium 0.025 MG Oral Tablet Levothyroxin e Sodium 25 MCG Levothyroxine Sodium 25 MCG 03/18/2021 12:00:00 AM EDT active Levothyroxine Sodium 25 MCG eCW1 ([facility]) Levothyroxine Sodium 0.025 MG Oral Tablet Levothyroxin e Sodium 25 MCG Levothyroxine Sodium 25 MCG 03/18/2021 12:00:00 AM EDT active Levothyroxine Sodium 25 MCG eCW1 ([facility]) Levothyroxine Sodium 0.025 MG Oral Tablet Levothyroxin e Sodium 25 MCG Levothyroxine Sodium 25 MCG 03/18/2021 12:00:00 AM EDT active Levothyroxine Sodium 25 MCG eCW1 ([facility]) sildenafil 50 MG Oral Tablet Sildenafil Citrate 50 MG Silden afil Citrate 50 MG 03/12/2021 12:00:00 AM EDT 1.0 {tablet_as_needed} active Sildenafil Citrate 50 MG eCW1 ([facility]) sildenafil 50 MG Oral Tablet Sildenafil Citrate 50 MG Silden afil Citrate 50 MG 03/12/2021 12:00:00 AM EDT 1.0 {tablet_as_needed} active Sildenafil Citrate 50 MG eCW1 ([facility]) sildenafil 50 MG Oral Tablet Sildenafil Citrate 50 MG Silden afil Citrate 50 MG 03/12/2021 12:00:00 AM EDT 1.0 {tablet_as_needed} active Sildenafil Citrate 50 MG eCW1 ([facility]) sildenafil 50 MG Oral Tablet Sildenafil Citrate 50 MG Silden afil Citrate 50 MG 03/12/2021 12:00:00 AM EDT 1.0 {tablet_as_needed} active Sildenafil Citrate 50 MG eCW1 ([facility]) sildenafil 50 MG Oral Tablet Sildenafil Citrate 50 MG Silden afil Citrate 50 MG 03/12/2021 12:00:00 AM EDT 1.0 {tablet_as_needed} active Sildenafil Citrate 50 MG eCW1 ([facility]) sildenafil 50 MG Oral Tablet Sildenafil Citrate 50 MG Silden afil Citrate 50 MG 03/12/2021 12:00:00 AM EDT 1.0 {tablet_as_needed} active Sildenafil Citrate 50 MG eCW1 ([facility]) alogliptin 6.25 MG Oral Tablet Alogliptin Benzoate 02/21/2021 12:00 :00 AM EDT ORAL active MED[facility] ([facility]) Levothyroxine Sodium 0.175 MG Oral Tablet Levothyroxine Sodi um 07/23/2020 12:00:00 AM EDT ORAL active M EDENT ([facility]) torsemide 20 MG Oral Tablet Torsemide 07/23/2020 12:00:00 AM EDT ORAL active MEDENT ([facility]) atorvastatin 40 MG Oral Tablet Atorvastatin Calcium 07/23/2020 1 2:00:00 AM EDT ORAL active MEDENT ( [facility]) Insurance Providers Payer name Policy type / Coverage type Policy ID Covered democrat ID Covered democrat's relationship to warren Policy Warren Plan Information [facility] MEDICAID [id number] Farnaz [id number] [facility] MEDICAID [id number] Farnaz [id number] 07 [facility] PLAN [facility] [id number] SP [id number] [facility] PLAN [facility] [id number] SP [id number] [facility]-Medicaid [id number] [facility]-Community Plan-[facility] [id number] Self 1 [id number] [facility] Commercial [id number] Self 1 [id number] ANSI-Medicaid [id number] ANSI-Medicaid [id number] [facility] Commercial [id number] Self 1 [id number] [facility] Commercial [id number] Self 1 [id number] ANSI-Medicaid [id number] [facility] Commercial [id number] Self 1 [id number] ANSI-Medicaid [id number] ANSI-Medicaid [id number] ANSI-Medicaid [id number] ANSI-Medicaid [id number] [facility] MEDICAID PI PI ANSI-Medicaid [id number] ANSI-Medicaid [id number] [facility] O [id number] S [id number] ANS-Medicaid [id number] ANSI-Medicaid [id number] [facility] Health Maintenance Organization (HMO) [id number] Self [id number] [facility] [id number] SP [id number] [facility] Commercial [id number] Self 1 [id number] [facility]-Community Plan-[facility] Commercial [id number] Self 1 [id number] [facility] PLAN MCDO [id number] SP [id number] [facility]-Community Plan-[facility] Commercial [id number] Self [facility] Health Maintenance Organization (O) [id number] Self [facility] MCDO [id number] SP [id number] MEDICAID [id number] SP [id number] [employer] COMMUNITY PLAN MCDO [id number] SP [id number] [facility]-Medicaid [id number] ANSI-Medicaid [id number] Problems, Conditions, and Diagnoses Code Display Name Description Problem Type Effective Dates Data Source(s) N52.9 [id number] Erectile dysfunction, unspecifie d erectile dysfunction type Problem 03/12/2021 12:00:00 AM EDT eCW1 ([facility]) I35.1 Aortic valve disorder Aortic valve disorder Problem 02/22/2021 12:00:00 AM EDT MEDENT ([facility]) I25.10 [id number] Atherosclerosis of n ative coronary artery of [place] heart without angina pectoris Problem 01/10/2021 12:00:00 AM EDT eCW1 ([facility]) N18.4 [id number] Chronic kidney disease, stage 4 (severe) Problem 01/10/2021 12:00:00 AM EDT eCW1 ([facility]) Surgeries/Procedures Procedure Description Date Indications Data Source(s) ECG ROUTINE ECG W/LEAST 12 LDS W/I&R 02/22/2021 12:00: 00 AM EDT MEDENT ([facility]) Immunization: Flublok Quadrivalent (18 years & older) 0.5mL IM (Influenza) 08/27/2020 12:00:00 AM EST eCW1 ([facility]) ECG ROUTINE ECG W/LEAST 12 LDS W/I&R 07/24/2020 12:00: 00 AM EDT MEDENT ([facility]) Results ID Date Data Source [id number] 02/06/2021 12:12:00 PM EDT [facility] Name Value Range Interpretation Code Description Data Heather rce(s) Supporting Document(s) Magnesium Level 1.76 MED[facility] ([facility]) ID Date Data Source [id number] 02/06/2021 12:12:00 PM EDT [facility] Name Value Range Interpretation Code Description Data Heather rce(s) Supporting Document(s) White Blood Count 11.1 5.0-10.0 [facility] ([facility]) Red Blood Count 3.46 4.70-6.10 [facility] ([facility]) Platelets 290 172-450 [facility] Hemoglobin 9.8 14.0-18.0 [facility] ([facility]) Hematocrit 29.4 42.0-52.0 [facility] ([facility]) ID Date Data Source [id number] 02/06/2021 12:12:00 PM EDT [facility] ([facility]) Name Value Range Interpretation Code Description Data Heather rce(s) Supporting Document(s) Glucose 131 70-100 [facility] Creatinine 1.8 0.55-1.3 [facility] ([facility]) Glomerular filtration rate/1.73 sq M.pre dicted [Volume Rate/Area] in Serum or Plasma by Creatinine-based formula (MDRD) 39 [facility] ([facility]) Blood Urea Nitrogen 40.8 7-18 [facility] ([facility] Potassium 5.17 3.5-5.3 [facility] Chloride 105.4 98-110 [facility] Sodium 140.4 136-146 [facility] Calcium 9.3 8.4-10.4 [facility] Carbon Dioxide 21.3 20-32 [facility] Albumin 3.8 3.5-4.7 [facility] Phosphorus 3.7 [facility] ([facility]) ID Date Data Source [id number] 07/20/2020 08:28:00 AM EDT [facility] ([facility]) Name Value Range Interpretation Code Description Data Heather rce(s) Supporting Document(s) Platelets 187 130-400 [facility] Red Blood Count 3.27 4.70-6.20 [facility] ([facility]) White Blood Count 7.2 4.3-10.9 [facility] ([facility]) Hemoglobin 9.3 13.0-17.0 [facility] ([facility]) Hematocrit 29.1 39.0-50.0 [facility] ([facility]) ID Date Data Source [id number] 07/20/2020 08:28:00 AM EDT [facility] ([facility] Name Value Range Interpretation Code Description Data Heather rce(s) Supporting Document(s) Glucose 147 70-100 [facility] Glomerular filtration rate/1.73 sq M.pre dicted [Volume Rate/Area] in Serum or Plasma by Creatinine-based formula (MDRD) 31 [facility] ([facility]) Blood Urea Nitrogen 59.0 5-21 [facility] ([facility] Creatinine 2.2 0.6-1.5 [facility] ([facility]) Chloride 108 98-110 [facility] Potassium 4.7 3.5-5.3 [facility] Sodium 143.3 136-146 [facility] Phosphorus 3.9 [facility] ([facility]) Albumin 4.2 3.5-4.7 [facility] Calcium 9.1 8.4-10.4 [facility] Carbon Dioxide 27.3 20-32 [facility] ([facility]) ID Date Data Source [id number] 06/18/2020 12:14:00 PM EDT [facility] ([facility] Name Value Range Interpretation Code Description Data Heather rce(s) Supporting Document(s) Creatinine 2.8 0.6-1.5 [facility] ([facility]) Blood Urea Nitrogen 77.0 5-21 [facility] ([facility] Glucose 122 70-100 [facility] Glomerular filtration rate/1.73 sq M.pre dicted [Volume Rate/Area] in Serum or Plasma by Creatinine-based formula (MDRD) 23 [facility] ([facility]) Sodium 137.6 136-146 [facility] Potassium 4.92 3.5-5.3 [facility] Chloride 107.2 98-110 [facility] Carbon Dioxide 21.2 20-32 [facility] ([facility] Calcium 9.0 8.4-10.4 [facility] Phosphorus 5.5 [facility] ([facility]) Albumin 4.1 3.5-4.7 [facility] ID Date Data Source [id number] 06/18/2020 12:14:00 PM EDT [facility] ([facility]) Name Value Range Interpretation Code Description Data Heather rce(s) Supporting Document(s) Magnesium Level 2.63 [facility] ([facility]) ID Date Data Source [id number] 06/18/2020 12:14:00 PM EDT [facility] ([facility] Name Value Range Interpretation Code Description Data Heather rce(s) Supporting Document(s) White Blood Count 9.3 4.3-10.9 [facility] ([facility] Red Blood Count 2.96 4.70-6.20 [facility] ([facility]) Hemoglobin 9.1 13.0-17.0 [facility] ([facility]) Platelets 99 130-400 [facility] Hematocrit 26.4 39.0-50.0 [facility] ([facility]) Procedure Social History Code Duration Value Status Description Data Source(s ) Smoking 05/03/2021 12:00:00 AM EDT Never Smoker completed Never S moker eCW1 ([facility]) Smoking 05/03/2021 12:00:00 AM EDT Never Smoker completed Never S moker eCW1 ([facility]) Smoking 05/03/2021 12:00:00 AM EDT Never Smoker completed Never S moker eCW1 ([facility]) Smoking 03/12/2021 12:00:00 AM EDT Never Smoker completed Never S moker eCW1 ([facility]) Smoking 03/12/2021 12:00:00 AM EDT Never Smoker completed Never S moker eCW1 ([facility]) Smoking 03/12/2021 12:00:00 AM EDT Never Smoker completed Never S moker eCW1 ([facility]) Smoking 02/22/2021 12:00:00 AM EDT Patient has never smoked co mpleted Patient has never smoked [facility] ([facility]) Smoking 08/27/2020 12:00:00 AM EST Never Smoker completed Never S moker eCW1 ([facility]) Smoking 08/27/2020 12:00:00 AM EST Never Smoker completed Never S moker eCW1 ([facility]) Smoking 08/27/2020 12:00:00 AM EST Never Smoker completed Never S moker eCW1 ([facility]) Smoking 08/27/2020 12:00:00 AM EST Never Smoker completed Never S moker eCW1 ([facility]) Vital Signs ID Date Data Source [id number] Name Value Range Interpretation Code Description Data Source(s) Body weight 240.6 [lb_av] 240.6 [lb_av] eCW1 ([facility]) Body height 69.5 [in_i] 69.5 [in_i] eCW1 ([facility]) Body mass index (BMI) [Ratio] 35.02 kg/m2 35.02 kg/m2 eCW1 ([facility]) Heart rate 83 /min 83 /min eCW1 ([facility]) Respiratory rate 18 /min 18 /min eCW1 ([facility]) Body temperature 95.8 [degF] 95.8 [degF] eCW1 ( [facility]) Systolic blood pressure 138 mm[Hg] 138 mm[Hg] e CW1 ([facility]) Diastolic blood pressure 80 mm[Hg] 80 mm[Hg] eCW1 ([facility]) Body weight 236 [lb_av] 236 [lb_av] eCW1 ([facility]) Body height 69.5 [in_i] 69.5 [in_i] eCW1 ([facility]) Body mass index (BMI) [Ratio] 34.35 kg/m2 34.35 kg/m2 eCW1 ([facility]) Heart rate 77 /min 77 /min eCW1 ([facility]) Respiratory rate 18 /min 18 /min eCW1 ([facility]) Body temperature 95.3 [degF] 95.3 [degF] eCW1 ( [facility]) Systolic blood pressure 106 mm[Hg] 106 mm[Hg] e CW1 ([facility]) Diastolic blood pressure 60 mm[Hg] 60 mm[Hg] eCW1 ([facility]) Body mass index (BMI) [Ratio] 34.9 kg/m2 34.9 k g/m2 MEDENT ([facility]) Body weight 240.00 [lb_av] 240.00 [lb_av] MEDEN T ([facility]) Body height 69.5 [in_i] 69.5 [in_i] [facility] ([facility]) 5'9.50" Systolic blood pressure--sitting 130 mm[Hg] 130 mm[Hg] MEDENT ([facility]) Ra, large cuff Diastolic blood pressure--sitting 84 mm[Hg] 84 mm[Hg] MEDENT ([facility]) Ra, large cuff Body weight 241 [lb_av] 241 [lb_av] eCW1 ([facility]) Body height 69.5 [in_i] 69.5 [in_i] eCW1 ([facility]) Body mass index (BMI) [Ratio] 35.08 kg/m2 35.08 kg/m2 eCW1 ([facility]) Heart rate 82 /min 82 /min eCW1 ([facility] [facility]) Respiratory rate 19 /min 19 /min eCW1 (Formerly [facility]) Body temperature 97.7 [degF] 97.7 [degF] eCW1 ( Formerly [facility]) Systolic blood pressure 126 mm[Hg] 126 mm[Hg] e CW1 (Formerly [facility]) Diastolic blood pressure 80 mm[Hg] 80 mm[Hg] eCW1 (Formerly [facility]) Diastolic blood pressure--sitting 68 mm[Hg] 68 mm[Hg] MEDENT ([facility]) large cuff, Ra Body weight 232.00 [lb_av] 232.00 [lb_av] MEDEN T ([facility]) Body height 69.5 [in_i] 69.5 [in_i] MEDENT ([facility]) 5'9.50" Body mass index (BMI) [Ratio] 33.8 kg/m2 33.8 k g/m2 MEDENT ([facility]) Heart rate 71 /min 71 /min MEDENT ([facility]) Systolic blood pressure--sitting 118 mm[Hg] 118 mm[Hg] MEDENT ([facility]) large cuff, Ra Patient Treatment Plan of Care Planned Activity Planned Date Details Description Data Source (s) Levothyroxine Sodium 0.025 MG Oral Tablet 03/18/2021 12:00:00 AM ED T eCW1 (Formerly [facility]) sildenafil 50 MG Oral Tablet 03/12/2021 12:00:00 AM EDT eCW1 (Formerly [facility]) sildenafil 50 MG Oral Tablet 03/12/2021 12:00:00 AM EDT eCW1 (Formerly [facility]) sildenafil 50 MG Oral Tablet 03/12/2021 12:00:00 AM EDT eCW1 (Formerly [facility])
--- OUTSIDE RECORDS SUMMARY | 2021-07-29 10:25 | CCD ---
Author Author [facility] Organization [facility] Address Unknown Phone Unavailable Care Team Providers Care Syrup Mixer Assistant Name Role Phone Minor Saldana Unavailable PROBLEMS Type Condition ICD9-CM Code [id number] Code Onset Dates Condition S tatus W/U Status Risk SNOMED Code Notes Problem Amputated toe of left foot Z89.422 Active confirmed 506318979 Problem History of osteomyelitis Z87.39 Active confirmed 141886132 Problem Chronic deep vein thrombosis (DVT) of distal vein of left lower extremity I82.5Z2 Active confirmed 806160460690404 Problem Increase in antithrombin D68.318 Active confirmed 319841929 Problem Type 2 diabetes mellitus E11.9 Active confirmed 43492287 Problem Essential hypertension I10 Active confirmed 09722830 Problem Dyslipidemia E78.5 Active confirmed 7295740 07 Problem Hypertriglyceridemia E78.1 Active confirmed 283371003 Problem Hypothyroidism (acquired) E03.9 Active confirmed 673247550 Problem Stage 4 chronic kidney disease N18.4 Active confir med 428302908 Problem Sebaceous cyst L72.3 Active confirmed 31930 3000 Problem Chronic kidney disease, stage 4 (severe) N18.4 Active confirmed 205965341 Problem Hypermagnesemia E83.41 Active confirmed 6697 8005 Problem Erectile dysfunction, unspecified erectile dysfunction typ e N52.9 Active confirmed 114864540 Problem Diabetes E11.9 Active confirmed 16385358 Problem Vitamin D deficiency E55.9 Active confirmed 57794842 Problem Peripheral artery disease I73.9 Active confirmed 953750472 Problem Mixed hyperlipidemia E78.2 Active confirmed 143614251 Problem Atherosclerosis of [place] co ronary artery of [place] heart without angina pectoris I25.10 Active confirmed 877976313 ALLERGIES No Known Allergies ENCOUNTERS from 1960 to 2021-06-05 Encounter Location Date Provider Diagnosis [facility] [place] Resident [address] [phone] [place] [address] May, Minor Saldana IMMUNIZATIONS Vaccine Route Administration Date Status Influenza 18 yrs & older Flublok IM Intramuscular Aug 27, 2020 Administered Influenza 18 yrs & older Flublok IM Intramuscular Aug 06, 2018 Administered Influenza 6mo & up Fluzone IM Intramuscular Sep 01, 2017 Admi nistered Influenza 6mo & up Fluzone IM Intramuscular Jul 11, 2016 Admi nistered SOCIAL HISTORY Tobacco Use: Social History Observation Description Date Details (start date - stop date) Never Smoker Sex Assigned At : Social History Observation Description Sex Assigned At Unknown Education: Question Answer Notes Level of Education: Not Finished College Audit Question Answer Notes Total Score: 0 Interpretation: Alcohol Education Sexual Hx: Question Answer Notes Had sex in the last 12 months (vaginal, oral, or anal)? No Have you ever had an STD? No Drug and Alcohol Question Answer Notes Total Score: 0 Interpretation: No problems reported Alcohol Screening: Question Answer Notes Did you have a drink containing alcohol in the past year? No Points 0 Interpretation Negative BMI Care Goal Follow-Up Question Answer Notes Above Normal BMI Follow-Up Lifestyle education regarding t Tobacco Use: Question Answer Notes Are you a: never smoker never smoker Smoking Cessation Information Given 05/05/2016 REASON FOR REFERRAL No Information VITAL SIGNS No information MEDICATIONS Medication SIG (Take, Route, Frequency, Duration) Notes Start Da te End Date Status Glucometer 1 as directed e11.9 once every morning for 30 day(s) May, Active Ferrous Sulfate 325 (65 Fe) MG 1 tablet Orally three times d aily for 30 day(s) May, Active Levothyroxine Sodium 25 MCG 1 tablet in the morning on an empty stomach Orally Once a day for 30 day(s) Mar, Active Sildenafil Citrate 50 MG 1 tablet as needed Orally Once a day fo r 10 days Mar, Active Vitamin D3 1000 UNIT 1 tablet Orally Once a day for 30 day(s) Sep, Active Coreg 12.5 MG 1 tab Orally twice daily Not-Taking Aspir-81 81 MG 1 tablet Orally Once a day May, Active Synthroid 175 MCG 1 tablet on an empty stomach in the morning Once a day Orally 30 day(s) Orally once daily for 90 Active Lisinopril 20 MG 1 tablet Orally Once a day Not-Taking Torsemide 20 MG 2 tabs Orally Once a day Active Multivitamins - 1 tablet Orally Once a day Active Atorvastatin Calcium 40 MG 1 tablet Orally Once a day for 30 days Active PROCEDURES No Information RESULTS No Results REASON FOR VISIT no showed MEDICAL (GENERAL) HISTORY Type Description Date Medical History CHF (EF 35-40% 2015) Medical History Microcytic Anemia Medical History Hypothyroidism Medical History Iron Deficiency Medical History Dyslipidemia Medical History Hypertension, goal 140/90 Medical History CKD, Stage IV Medical History Diabetes, goal A1C 7% Surgical History tonsillectomy 1966 Surgical History amputation L great toe 01/27/2018 Surgical History CABG- [facility] [place] 10/2018 Hospitalization History Thyroid issues 2015 Hospitalization History L great toe amputation 01/26/2018-01/05 Goals Section No Information Health Concerns No Information MEDICAL EQUIPMENT No Information MENTAL STATUS No Information FUNCTIONAL STATUS No Information ASSESSMENTS No Information PLAN OF TREATMENT No Information Insurance Providers Payer Name Payer Address Payer Phone Insured Name Patient Relati onship to Insured Coverage Start Date Coverage End Date [employer] [facility] [employer] [address] [facility] [phone] BRIAN HASKINS self
--- OUTSIDE RECORDS SUMMARY | 2021-07-29 10:25 | CCD ---
Author Author [facility] Organization [facility] Address Unknown Phone Unavailable Care Team Providers Care Assembly Stock Supervisor Name Role Phone Susy Vincent Unavailable PROBLEMS Type Condition ICD9-CM Code [id number] Code Onset Dates Condition S tatus W/U Status Risk SNOMED Code Notes Problem Amputated toe of left foot Z89.422 Active confirmed 649575142 Problem History of osteomyelitis Z87.39 Active confirmed 758503844 Problem Chronic deep vein thrombosis (DVT) of distal vein of left lower extremity I82.5Z2 Active confirmed 686879447852920 Problem Increase in antithrombin D68.318 Active confirmed 100072414 Problem Type 2 diabetes mellitus E11.9 Active confirmed 98476842 Problem Essential hypertension I10 Active confirmed 59749338 Problem Dyslipidemia E78.5 Active confirmed 6658529 07 Problem Hypertriglyceridemia E78.1 Active confirmed 008776434 Problem Hypothyroidism (acquired) E03.9 Active confirmed 400053482 Problem Stage 4 chronic kidney disease N18.4 Active confir med 036259666 Problem Sebaceous cyst L72.3 Active confirmed 17469 3000 Problem Chronic kidney disease, stage 4 (severe) N18.4 Active confirmed 576180910 Problem Hypermagnesemia E83.41 Active confirmed 6697 8005 Problem Erectile dysfunction, unspecified erectile dysfunction typ e N52.9 Active confirmed 376063478 Problem Diabetes E11.9 Active confirmed 77295269 Problem Vitamin D deficiency E55.9 Active confirmed 92052412 Problem Peripheral artery disease I73.9 Active confirmed 909744215 Problem Mixed hyperlipidemia E78.2 Active confirmed 915358651 Problem Atherosclerosis of [place] co ronary artery of [place] heart without angina pectoris I25.10 Active confirmed 343624102 ALLERGIES No Known Allergies ENCOUNTERS from 1960 to 2021-05-05 Encounter Location Date Provider Diagnosis [facility] [place] Resident [address] [phone] [place] [address] Apr, Susy Vincent Hypothyroidism (acqu ired) E03.9 and Screening for colon cancer Z12.11 IMMUNIZATIONS Vaccine Route Administration Date Status Influenza [...] REASON FOR REFERRAL No Information VITAL SIGNS Weight 240.6 lbs Apr, Height 69.5 in Apr, BMI 35.02 kg/m2 Apr, Heart Rate 83 /min Apr, Respiratory Rate 18 /min Apr, Temperature 95.8 degrees Fahrenheit Apr, Oximetry 100 Apr, Blood pressure systolic 138 mm Hg Apr, Blood pressure diastolic 80 mm Hg Apr, MEDICATIONS Medication SIG (Take, Route, Frequency, Duration) [...] Information RESULTS No Results REASON FOR VISIT follow up missed appt 04/29 MEDICAL (GENERAL) HISTORY Type Description Date Medical History CHF (EF 35-40% 2015) Medical History Microcytic Anemia Medical History Hypothyroidism Medical History Iron Deficiency Medical History Dyslipidemia Medical History Hypertension, goal 140/90 Medical History CKD, Stage IV Medical History Diabetes, goal A1C 7% Surgical History tonsillectomy 1966 Surgical History amputation L great toe 01/27/2018 Surgical History CABG- [facility] [place] 10/2018 Hospitalization History Thyroid issues 2015 Hospitalization History L great toe amputation 01/26/2018-01/05 Goals Section No Information Health Concerns No Information MEDICAL EQUIPMENT No Information MENTAL STATUS No Information FUNCTIONAL STATUS No Information ASSESSMENTS Encounter Date Diagnosis Assessment Notes Treatment Notes Treatm ent Clinical Notes Apr, Hypothyroidism (acquired) (ICD-10 - E03.9) Mr. Hatch did not have labs drawn prior to appointment. I was unable to assess whether there needed to be a medication adjustment or additional labs ordered. It appears as though a repeat TSH was not ordered prior to this appointment; I ordered a TSH today after I spoke with the patient. The laboratory closes at 4pm and the patient was not able to have labs drawn after appt today anyway. He states that he will come back on Thursday or Thursday of next week to have labs drawn. He has been struggling to pay for cab rides to his doctors appt. I advised patient to look into booking cab rides with Medicaid. He states he has been taking 200mcg of synthroid daily as prescribed. I told the patient that we will call him with lab results and can adjust medications as needed. He can follow up in one month to discuss labs in more detail. Apr, Screening for colon cancer (ICD-10 - Z12.11) Patient had colonoscopy in [address] Mckeon and was told to have repeat colonoscopy in 2018. He did not get a repeat colonoscopy and was referred by Dr. Gilman in March to general surgery. He has a colonoscopy schedule for the end of June with the [facility] in [place]. PLAN OF TREATMENT Treatment Notes Assessment Notes Clinical Notes Hypothyroidism (acquired) Mr. Laina woodard id not have labs drawn prior to appointment. I was unable to assess whether there needed to be a medication adjustment or additional labs ordered. It appears as though a repeat TSH was not ordered prior to this appointment; I ordered a TSH today after I spoke with the patient. The laboratory closes at 4pm and the patient was not able to have labs drawn after appt today anyway. He states that he will come back on Thursday or Thursday of next week to have labs drawn. He has been struggling to pay for cab rides to his doctors appt. I advised patient to look into booking cab rides with Medicaid.He states he has been taking 200mcg of synthroid daily as prescribed. I told the patient that we will call him with lab results and can adjust medications as needed. He can follow up in one month to discuss labs in more detail. Screening for colon cancer Patient had c olonoscopy in [address] Mckeon and was told to have repeat colonoscopy in 2018. He did not get a repeat colonoscopy and was referred by Dr. Gilman in March to general surgery. He has a colonoscopy schedule for the end of June with the [facility] in [place]. Future Test Test Name Order Date TSH [id number] Next Appt Details 4 week follow up with PCP Dr. Les munson up on chronic conditions Reason: Insurance Providers Payer Name Payer Address Payer Phone Insured Name Patient Relati onship to Insured Coverage Start Date Coverage End Date [facility] [facility] [address] [facility] [phone] BRIAN HATCH self
--- OUTSIDE RECORDS SUMMARY | 2021-07-29 10:25 | CCD ---
Author Author [facility] Organization [facility] Address Unknown Phone Unavailable Care Team Providers Care Certified Forklift Operator Name Role Phone Minor Saldana Unavailable PROBLEMS Type Condition ICD9-CM Code CVD07-UM Code Onset Dates Condition S tatus W/U Status Risk SNOMED Code Notes Problem Amputated toe of left foot Z89.422 Active confirmed 147866418 Problem History of osteomyelitis Z87.39 Active confirmed 972652387 Problem Chronic deep vein thrombosis (DVT) of distal vein of left lower extremity I82.5Z2 Active confirmed 315340498047605 Problem Increase in antithrombin D68.318 Active confirmed 270774656 Problem Type 2 diabetes mellitus E11.9 Active confirmed 40374596 Problem Essential hypertension I10 Active confirmed 32318245 Problem Dyslipidemia E78.5 Active confirmed 1938193 07 Problem Hypertriglyceridemia E78.1 Active confirmed 287939343 Problem Hypothyroidism (acquired) E03.9 Active confirmed 126190804 Problem Stage 4 chronic kidney disease N18.4 Active confir med 898166007 Problem Sebaceous cyst L72.3 Active confirmed 34538 3000 Problem Chronic kidney disease, stage 4 (severe) N18.4 Active confirmed 672252995 Problem Hypermagnesemia E83.41 Active confirmed 6697 8005 Problem Erectile dysfunction, unspecified erectile dysfunction typ e N52.9 Active confirmed 079565780 Problem Diabetes E11.9 Active confirmed 93107237 Problem Vitamin D deficiency E55.9 Active confirmed 69059786 Problem Peripheral artery disease I73.9 Active confirmed 068585643 Problem Mixed hyperlipidemia E78.2 Active confirmed 278099447 Problem Atherosclerosis of [place] co ronary artery of [place] heart without angina pectoris I25.10 Active confirmed 921788029 ALLERGIES No Known Allergies ENCOUNTERS from 1960 to 2021-05-04 Encounter Location Date Provider Diagnosis [facility] [place] Resident [address] [phone] [place] [address] Apr, Minor Saldana IMMUNIZATIONS Vaccine Route Administration Date [...] great toe 01/27/2018 Surgical History CABG- [facility] [place] 10/2018 Hospitalization History Thyroid issues 2015 Hospitalization [...] Start Date Coverage End Date [facility] [employer] [facility] [address] [facility] [id number] BRIAN HASKINS self
[2021-07-29] MEDS: TETRACAINE 0.5% OPHTH SOLN 4ML OD SCH ×2 (11:26→11:34)
[2021-07-29] MEDS: PHENYLEPHRINE 2.5% OPHTH SOL 2ML OD SCH ×3 (11:35→11:55)
[2021-07-29] MEDS: FLURBIPROFEN 0.03% OPHTH SOLN 2.5 ML OD SCH ×3 (11:35→11:55)
[2021-07-29] MEDS: CYCLOPENTOLATE 1% OPHTH SOLN 2 ML BTL OD SCH ×3 (11:35→11:55)
[2021-07-29 14:25] VITALS: BP 140/83
== END 2021-07-29 14:30 | disposition home or self-care (01) ==
LOC: M SDC 10:19
PROVIDERS: ATTEND Ophthalmology
DX: H25.11 Age-related nuclear cataract, right eye (principal); I10 Essential (primary) hypertension; E03.9 Hypothyroidism, unspecified; E78.5 Hyperlipidemia, unspecified; Z79.82 Long term (current) use of aspirin; Z79.899 Other long term (current) drug therapy; Z86.73 Personal history of transient ischemic attack (TIA), and cerebral infarction without residual deficits; D64.9 Anemia, unspecified; Z95.1 Presence of aortocoronary bypass graft
CPT/HCPCS: 66984; J2250; J3010; V2632

== ENCOUNTER → 2021-08-21 | Outpatient (CLI) | payer OTHER ==
[~2021-08-21] MED LIST changes: -DUOVISC (0.50ML VISCOAT/0.85ML PROVISC) OPHTH KIT As Ordered ONE; -LIDOCAINE 1% SDV 5ML VIAL As Ordered ONE; -LR 1,000 ML IV SCH; -MIDAZOLAM INJ 2MG/2ML VIAL (J2250 PER 1MG) As Ordered ONE; -fentaNYL 100 MCG/2 ML INJECTION (J3010) As Ordered ONE
== END ==
LOC: M LABSMTC 09:14
PROVIDERS: ATTEND Anesthesiology
DX: Z01.812 Encounter for preprocedural laboratory examination (principal); Z20.822 Contact with and (suspected) exposure to COVID-19

== ENCOUNTER 2021-08-26 06:24 | Day surgery (SDC) | payer OTHER ==
[~2021-08-26] VITALS: Ht 175.3 cm; Wt 112.0 kg
[2021-08-26] MEDS ORDERED: DUOVISC (0.50ML VISCOAT/0.85ML PROVISC) OPHTH KIT As Ordered ONE (06:32)
[2021-08-26] MEDS ORDERED: LIDOCAINE 1% SDV 5ML VIAL As Ordered ONE (06:32)
--- OUTSIDE RECORDS SUMMARY | 2021-08-26 06:34 | CCD ---
Author Author [facility] Organization [facility] Address Unknown Phone Unavailable Care Team Providers Care Operational Intelligence Officer Name Role Phone Titi, L Cynthia PA [...] Unavailable Titi, L Cynthia PA Unavailable Unavailable Tiit, L Cynthia PA Unavailable Unavailable Titi, L [...] L KATIE PA Unavailable Unavailable NIKOLAY, L KAITE PA Unavailable Unavailable Re-disclosure Warning The records [...] is protected by Article 27-F of the [facility] Public Health law. If you continue you may have access to information: Regarding HIV / AIDS; Provided by facilities licensed or operated by the [facility] Office of Mental Health; or Provided by the [facility] Office for People With Developmental Disabilities. If such information is present, then the following [facility] mandated warning applies: This information has been [...] law may result in a fine or skilled nursing sentence or both. A general authorization for the release of medical or other information is NOT sufficient authorization for further disc losure. Family History Family Member Name Family Member Gender Family Member Status Date o f Status Description Data Source(s) Unknown Male Problem MEDENT ([facility]) Unknown Female Problem [facility] ([facility]) Unknown Female Problem MED[facility] ([facility]) Unknown Female Problem MEDENT ([facility]) Encounters Encounter Providers Location Date Indications Data Source(s ) Unknown [address] [facility] [place] [address] 06/04/2021 12:00:00 AM EDT eCW1 ([facility]) Outpatient [address] [facility] [place] [address] 05/03/2021 12:00:00 AM EDT [facility]1 ([facility] [place] [address] [facility] [place] [address] 04/29/2021 12:00:00 AM EDT [facility]1 [facility] [place] [address] [facility] [place] [address] 03/18/2021 12:00:00 AM EDT eCW1 ([facility]) Unknown [address] [facility] [place] [address] 03/13/2021 12:00:00 AM EDT eCW1 ([facility]) Outpatient [address] [facility] [place] [address] 03/12/2021 12:00:00 AM EDT eCW1 ([facility]) Outpatient Attender: KATIE BHANDARI Main Office 02/22/2021 0 1:00:00 PM EDT MEDENT ([facility]) Unknown [address] [facility] [place] [address] 01/10/2021 12:00:00 AM EDT [facility]CW1 ([facility]) [place] [address] [facility] [place] [address] 01/10/2021 12:00:00 AM EDT [facility]CW1 ([facility]) [place] [address] [facility] [address] [place] [address] 08/27/2020 12:00:00 AM EST eCW1 ([facility]) [place] [address] [facility] [place] [address] 08/27/2020 12:00:00 AM EST eCW1 ([facility]) Outpatient Attender: Cynthia BHANDARI Main Office 07/24/2020 11:45:0 0 AM EDT MEDSEFERINO ([facility]) Immunizations Vaccine Date Status Description Data Source(s) COVID-19 VACCINE Moderna 03/20/2021 12:00:00 AM EDT completed [facility] Vaccine Series Complete: YESThis Data wa s Submitted to [facility] Via AccuRev. COVID-19 VACCINE Moderna 02/20/2021 12:00:00 AM EDT completed [facility] Vaccine Series Complete: NOThis Data was Submitted to [facility] Via AccuRev. influenza, recombinant, quadrIvalent,injectable, prese rvative free 08/27/2020 08:35:00 AM EST completed eCW1 ([facility]) influenza, recombinant, quadrIvalent,injectable, prese rvative free 08/27/2020 08:35:00 AM EST completed eCW1 ([facility]) influenza, recombinant, quadrIvalent,injectable, prese rvative free 08/27/2020 08:35:00 AM EST completed eCW1 ([facility]) influenza, recombinant, quadrIvalent,injectable, prese rvative free 08/27/2020 08:35:00 AM EST completed eCW1 ([facility]) influenza, recombinant, quadrIvalent,injectable, prese rvative free 08/27/2020 08:35:00 AM EST completed eCW1 ([facility]) influenza, recombinant, quadrIvalent,injectable, prese rvative free 08/27/2020 08:35:00 AM EST completed eCW1 ([facility]) influenza, recombinant, quadrIvalent,injectable, prese rvative free 08/27/2020 08:35:00 AM EST completed eCW1 ([facility]) influenza, recombinant, quadrIvalent,injectable, prese rvative free 08/27/2020 08:35:00 AM EST completed eCW1 ([facility]) influenza, recombinant, quadrIvalent,injectable, prese rvative free 08/27/2020 08:35:00 AM EST completed eCW1 ([facility]) influenza, recombinant, quadrIvalent,injectable, prese rvative free 08/27/2020 08:35:00 AM EST completed eCW1 ([facility]) Medications Medication Brand Name Start Date Product Form Dose Route Admi nistrative Instructions Pharmacy Instructions Status Indications Reaction Description Data Source(s) Levothyroxine Sodium 0.025 MG Oral Tablet Levothyroxin e Sodium 25 MCG Levothyroxine Sodium 25 MCG 03/18/2021 12:00:00 AM EDT active Levothyroxine Sodium 25 MCG eCW1 ([facility]) Levothyroxine Sodium 0.025 MG Oral Tablet Levothyroxin e Sodium 25 MCG Levothyroxine Sodium 25 MCG 03/18/2021 12:00:00 AM EDT active Levothyroxine Sodium 25 MCG eCW1 ([facility]) Levothyroxine Sodium 0.025 MG Oral Tablet Levothyroxin e Sodium 25 MCG Levothyroxine Sodium 25 MCG 03/18/2021 12:00:00 AM EDT active Levothyroxine Sodium 25 MCG eCW1 ([facility]) Levothyroxine Sodium 0.025 MG Oral Tablet Levothyroxin e Sodium 25 MCG Levothyroxine Sodium 25 MCG 03/18/2021 12:00:00 AM EDT active Levothyroxine Sodium 25 MCG eCW1 ([facility]) sildenafil 50 MG Oral Tablet Sildenafil Citrate 50 MG Silden afil Citrate 50 MG 03/12/2021 12:00:00 AM EDT 1.0 {tablet_as_needed} active Sildenafil Citrate 50 MG eCW1 ([facility]) sildenafil 50 MG Oral Tablet Sildenafil Citrate 50 MG Silden afil Citrate 50 MG 03/12/2021 12:00:00 AM EDT 1.0 {tablet_as_needed} active Sildenafil Citrate 50 MG eCW1 ([facility]) sildenafil 50 MG Oral Tablet Sildenafil Citrate 50 MG Silden afil Citrate 50 MG 03/12/2021 12:00:00 AM EDT 1.0 {tablet_as_needed} active Sildenafil Citrate 50 MG eCW1 ([facility]) sildenafil 50 MG Oral Tablet Sildenafil Citrate 50 MG Silden afil Citrate 50 MG 03/12/2021 12:00:00 AM EDT 1.0 {tablet_as_needed} active Sildenafil Citrate 50 MG eCW1 ([facility]) sildenafil 50 MG Oral Tablet Sildenafil Citrate 50 MG Silden afil Citrate 50 MG 03/12/2021 12:00:00 AM EDT 1.0 {tablet_as_needed} active Sildenafil Citrate 50 MG eCW1 ([facility]) sildenafil 50 MG Oral Tablet Sildenafil Citrate 50 MG Silden afil Citrate 50 MG 03/12/2021 12:00:00 AM EDT 1.0 {tablet_as_needed} active Sildenafil Citrate 50 MG eCW1 ([facility]) alogliptin 6.25 MG Oral Tablet Alogliptin Benzoate 02/21/2021 12:00 :00 AM EDT ORAL active MEDENT ([facility]) Levothyroxine Sodium 0.175 MG Oral Tablet Levothyroxine Sodi um 07/23/2020 12:00:00 AM EDT ORAL active M EDENT ([facility]) torsemide 20 MG Oral Tablet Torsemide 07/23/2020 12:00:00 AM EDT ORAL active MEDENT ([facility]) atorvastatin 40 MG Oral Tablet Atorvastatin Calcium 07/23/2020 1 2:00:00 AM EDT ORAL active MEDENT ( [facility]) Insurance Providers Payer name Policy type / Coverage type Policy ID Covered republican ID Covered republican's relationship to warren Policy Warren Plan Information [facility] MEDICAID [id number] Farnaz [id number] [facility] MEDICAID [id number] Farnaz [id number] [facility] PL[facility] [id number] SP [id number] [facility] PLAN [facility] [id number] SP [id number] [facility]-Med[facility] [id number] [facility] [id number] Self 1 [id number] [facility] [id number] Self 1 [id number] ANSI-Medicaid [id number] ANS-Medicaid [id number] [facility] [id number] Self 1 [id number] [facility] [employer] [id number] Self 1 [id number] [facility]-Medicaid [id number] [facility] [employer] [id number] Self 1 [id number] ANSI-Medicaid [id number] ANSI-Medicaid [id number] ANSI-Medicaid [id number] ANSI-Medicaid [id number] [facility] MEDICAID PI PI ANSI-Medicaid [id number] ANSI-Medicaid [id number] [facility]) O [id number] S [id number] ANSI-Medicaid [id number] ANSI-Medicaid [id number] [facility] Health Maintenance Organization [place] [id number] Self [id number] [facility] [employer] [employer] [employer] [id number] SP [id number] [facility] Plan-[employer] [id number] Self 1 [id number] [facility] [facility] [id number] Self 1 [id number] [facility] COMMUNITY PLAN M[employer]O [id number] SP [id number] [facility] Plan-[facility] Commercial [id number] Self [facility] Health Maintenance Organization (HMO) [id number] Self [facility] COMMUNITY PLAN MCDO [id number] SP [id number] MEDICAID [id number] SP [id number] [facility] [id number] [facility]-Medicaid [id number] [facility] [id number] Problems, Conditions, and Diagnoses Code Display Name Description Problem Type Effective Dates Data Source(s) N52.9 [id number] Erectile dysfunction, unspecifie d erectile dysfunction type Problem 03/12/2021 12:00:00 AM EDT eCW1 ([facility]) I35.1 Aortic valve disorder Aortic valve disorder Problem 02/22/2021 12:00:00 AM EDT MEDENT ([facility]) I25.10 [id number] Atherosclerosis of n ative coronary artery of [place] heart without angina pectoris Problem 01/10/2021 12:00:00 AM EDT eCW1 ([facility]) N18.4 [id number] Chronic kidney disease, stage 4 (severe) Problem 01/10/2021 12:00:00 AM EDT eCW1 ([facility]) Surgeries/Procedures Procedure Description Date Indications Data Source(s) ECG ROUTINE ECG W/LEAST 12 LDS W/I&R 02/22/2021 12:00: 00 AM EDT MEDENT ([facility]) Immunization: Flublok Quadrivalent (18 years & older) 0.5mL IM (Influenza) 08/27/2020 12:00:00 AM EST eCW1 ([facility]) ECG ROUTINE ECG W/LEAST 12 LDS W/I&R 07/24/2020 12:00: 00 AM EDT MEDENT ([facility]) Results ID Date Data Source [id number] 07/24/2021 11:50:00 AM EDT [facility] Name Value Range Interpretation Code Description Data Heather rce(s) Supporting Document(s) SARS-CoV-2 (COVID-19) RNA [Presence] in Respiratory specimen by LORI with probe detection Not Detected [facility] This lab was ordered by [facility] and reported by [employer] ID Date Data Source [id number] 02/06/2021 12:12:00 PM EDT MEDENT ([facility]) Name Value Range Interpretation Code Description Data Heather rce(s) Supporting Document(s) Magnesium Level 1.76 MEDENT ([facility]) ID Date Data Source [id number] 02/06/2021 12:12:00 PM EDT MEDENT ([facility]) Name Value Range Interpretation Code Description Data Heather rce(s) Supporting Document(s) White Blood Count 11.1 5.0-10.0 MEDENT ([facility]) Red Blood Count 3.46 4.70-6.10 MEDENT ([facility]) Platelets 290 172-450 MED[facility] ([facility] Hemoglobin 9.8 14.0-18.0 MEDENT ([facility]) Hematocrit 29.4 42.0-52.0 MEDENT ([facility]) ID Date Data Source [id number] 02/06/2021 12:12:00 PM EDT MEDENT ([facility]) Name Value Range Interpretation Code Description Data Heather rce(s) Supporting Document(s) Glucose 131 70-100 [facility] Creatinine 1.8 0.55-1.3 MEDENT ([facility]) Glomerular filtration rate/1.73 sq M.pre dicted [Volume Rate/Area] in Serum or Plasma by Creatinine-based formula (MDRD) 39 [facility] ([facility]) Blood Urea Nitrogen 40.8 7-18 MEDENT ([facility]) Potassium 5.17 3.5-5.3 [facility] Chloride 105.4 98-110 [facility] Sodium 140.4 136-146 [facility] Calcium 9.3 8.4-10.4 [facility] Carbon Dioxide 21.3 20-32 [facility] ([facility]) Albumin 3.8 3.5-4.7 [facility] Phosphorus 3.7 MED[facility] ([facility]) ID Date Data Source [id number] 07/20/2020 08:28:00 AM EDT [facility]) ID Date Data Source [id number] 07/20/2020 08:28:00 AM EDT MEDENT ([facility]) Name Value Range Interpretation Code Description Data Heather rce(s) Supporting Document(s) Glucose 147 70-100 [facility] ([facility] Glomerular filtration rate/1.73 sq M.pre dicted [Volume Rate/Area] in Serum or Plasma by Creatinine-based formula (MDRD) 31 MEDENT ([facility]) Blood Urea Nitrogen 59.0 5-21 [facility] ([facility] Creatinine 2.2 0.6-1.5 [facility] ([facility] [...] 27.3 20-32 MEDENT ([facility]) Procedure Social History Code Duration Value Status Description Data Source(s ) Smoking 05/03/2021 12:00:00 AM EDT Never Smoker completed Never S moker eCW1 ([facility]) Smoking 05/03/2021 12:00:00 AM EDT Never Smoker completed Never S moker eCW1 ([facility]) Smoking 05/03/2021 12:00:00 AM EDT Never Smoker completed Never S moker eCW1 ([facility]) Smoking 03/12/2021 12:00:00 AM EDT Never Smoker completed Never S moker eCW1 ([facility]) Smoking 03/12/2021 12:00:00 AM EDT Never Smoker completed Never S moker eCW1 ([facility]) Smoking 03/12/2021 12:00:00 AM EDT Never Smoker completed Never S moker eCW1 ([facility]) Smoking 02/22/2021 12:00:00 AM EDT Patient has never smoked co mpleted Patient has never smoked MEDENT ([facility]) Smoking 08/27/2020 12:00:00 AM EST Never Smoker completed Never S moker eCW1 ([facility]) Smoking 08/27/2020 12:00:00 AM EST Never Smoker completed Never S moker eCW1 ([facility]) Smoking 08/27/2020 12:00:00 AM EST Never Smoker completed Never S moker eCW1 ([facility]) Smoking 08/27/2020 12:00:00 AM EST Never Smoker completed Never S moker eCW1 ([facility]) Vital Signs ID Date Data Source UNK Name Value Range Interpretation Code Description Data Source(s) Body weight 240.6 [lb_av] 240.6 [lb_av] eCW1 ([facility]) Body height 69.5 [in_i] 69.5 [in_i] eCW1 ([facility]) Diastolic blood pressure 80 mm[Hg] 80 mm[Hg] eCW1 ([facility]) Body mass index (BMI) [Ratio] 35.02 kg/m2 35.02 kg/m2 eCW1 ([facility]) Systolic blood pressure 138 mm[Hg] 138 mm[Hg] e CW1 ([facility]) Heart rate 83 /min 83 /min eCW1 ([facility]) Respiratory rate 18 /min 18 /min eCW1 ([facility]) Body temperature 95.8 [degF] 95.8 [degF] eCW1 ( [facility]) Body weight 236 [lb_av] 236 [lb_av] eCW1 ([facility]) Body height 69.5 [in_i] 69.5 [in_i] eCW1 ([facility]) Body mass index (BMI) [Ratio] 34.35 kg/m2 34.35 kg/m2 eCW1 ([facility]) Heart rate 77 /min 77 /min eCW1 ([facility]) Respiratory rate 18 /min 18 /min eCW1 ([facility]) Body temperature 95.3 [degF] 95.3 [degF] eCW1 ( [facility]) Systolic blood pressure 106 mm[Hg] 106 mm[Hg] e CW1 ([facility]) Diastolic blood pressure 60 mm[Hg] 60 mm[Hg] eCW1 ([facility]) Body mass index (BMI) [Ratio] 34.9 kg/m2 34.9 k g/m2 MEDENT ([facility]) Body weight 240.00 [lb_av] 240.00 [lb_av] MEDEN T ([facility]) Body height 69.5 [in_i] 69.5 [in_i] MEDENT ([facility]) 5'9.50" Systolic blood pressure--sitting 130 mm[Hg] 130 mm[Hg] MEDENT ([facility]) Ra, large cuff Diastolic blood pressure--sitting 84 mm[Hg] 84 mm[Hg] MEDENT ([facility]) Ra, large cuff Body weight 241 [lb_av] 241 [lb_av] eCW1 ([facility]) Body height 69.5 [in_i] 69.5 [in_i] eCW1 ([facility]) Body mass index (BMI) [Ratio] 35.08 kg/m2 35.08 kg/m2 eCW1 ([facility]) Heart rate 82 /min 82 /min eCW1 ([facility]) Respiratory rate 19 /min 19 /min eCW1 ([facility]) Body temperature 97.7 [degF] 97.7 [degF] eCW1 ( [facility]) Systolic blood pressure 126 mm[Hg] 126 mm[Hg] e CW1 ([facility]) Diastolic blood pressure 80 mm[Hg] 80 mm[Hg] eCW1 ([facility]) Diastolic blood pressure--sitting 68 mm[Hg] 68 mm[Hg] MEDENT ([facility]) large cuff, Ra Body weight 232.00 [lb_av] 232.00 [lb_av] MEDEN T ([facility]) Body height 69.5 [in_i] 69.5 [in_i] MEDENT ([facility]) 5'9.50" Body mass index (BMI) [Ratio] 33.8 kg/m2 33.8 k g/m2 MEDENT ([facility]) Heart rate 71 /min 71 /min MED[facility] ([facility]) Systolic blood pressure--sitting 118 mm[Hg] 118 mm[Hg] MEDENT ([facility]) large cuff, Ra Patient Treatment Plan of Care Planned Activity Planned Date Details Description Data Source (s) Levothyroxine Sodium 0.025 MG Oral Tablet 03/18/2021 12:00:00 AM ED T eCW1 ([facility]) sildenafil 50 MG Oral Tablet 03/12/2021 12:00:00 AM EDT eCW1 ([facility]) sildenafil 50 MG Oral Tablet 03/12/2021 12:00:00 AM EDT eCW1 ([facility]) sildenafil 50 MG Oral Tablet 03/12/2021 12:00:00 AM EDT eCW1 ([facility])
[2021-08-26] MEDS ORDERED: ACETYLCHOLINE OPHTH SOLN 1% 2ML (MIOCHOL-E) As Ordered ONE (06:35)
[2021-08-26] MEDS ORDERED: PHENYLEPHRINE 2.5% OPHTH SOL 2ML OS SCH (07:00)
[2021-08-26] MEDS ORDERED: TETRACAINE 0.5% OPHTH SOLN 4ML OS SCH (07:00)
[2021-08-26] MEDS ORDERED: CYCLOPENTOLATE 1% OPHTH SOLN 2 ML BTL OS SCH (07:00)
[2021-08-26] MEDS ORDERED: FLURBIPROFEN 0.03% OPHTH SOLN 2.5 ML OS SCH (07:00)
[2021-08-26] MEDS ORDERED: LR 1,000 ML IV SCH (07:00)
[2021-08-26] MEDS ORDERED: fentaNYL 100 MCG/2 ML INJECTION (J3010) As Ordered ONE (07:19)
[2021-08-26] MEDS ORDERED: MIDAZOLAM INJ 2MG/2ML VIAL (J2250 PER 1MG) As Ordered ONE (07:19)
[2021-08-26 08:49] VITALS: BP 130/75
--- NOTE | 2021-08-26 11:37 | RO ---
OPERATIVE NOTE DATE OF OPERATION: 08/26/2021 PREOPERATIVE DIAGNOSIS: Mature cataract, left eye. POSTOPERATIVE DIAGNOSIS: Mature cataract, left eye. PROCEDURE: Phacoemulsification with posterior chamber intraocular lens of the left eye. PHACO TIME: Minimal. LENS: Soren AcrySof one-piece foldable lens. SURGEON: Yan Santos Jr, DO DESCRIPTION OF PROCEDURE: Patient was brought back to the operating room. Patient positioned on the table. Patient then was prepped and draped in the usual manner using Betadine solution. A lid speculum was placed in the left eye. A 1 mm stab blade was used to make a clear corneal stab incision at 10 o'clock limbus. Then a syringe containing 1% lidocaine attached to a cannula was brought to the port site and approximately 0.3 mL of the Lidocaine was injected into the anterior chamber to help anesthetize the internal structures. Then Viscoat in a syringe attached to a cannula was then brought to the port site, we filled the anterior chamber with viscoelastic. Then a 2.75 keratome blade was used to make a clear corneal wound at 9 o'clock position. Then cystitome followed by Utrata forceps were then used to make a continuous tear capsulorrhexis. BSS in a syringe attached to a cannula was then used to hydrodissect the lens nucleus from the capsular bag. The phacoemulsification apparatus was brought through the temporal wound and lens nucleus was removed with cvbbis-xvz-adgarby technique. Irrigation/aspiration apparatus was brought through the temporal wound and remaining cortical material was stripped away from the capsular bag. Provisc in syringe attached to a cannula was brought to the temporal wound and filled the capsular bag and anterior chamber with viscoelastic. Then Soren AcrySof one-piece foldable lens brought through the temporal wound into the capsular bag, dialed into position with the aid of Chon pusher. Irrigation/aspiration apparatus was brought back to the temporal wound into the anterior chamber and remaining viscoelastic material was removed. Then BSS in a syringe attached to a cannula was used to hydrate the corneal wound. The lid speculum was removed. The patient was brought to ambulator surgery in stable condition. The patient tolerated the procedure well.
== END 2021-08-26 11:42 | disposition home or self-care (01) ==
LOC: M SDC 06:24
PROVIDERS: ATTEND Ophthalmology
DX: H25.12 Age-related nuclear cataract, left eye (principal)
CPT/HCPCS: 66984; J2250; J3010; V2632

== ENCOUNTER → 2021-09-04 | Outpatient (REF) | payer OTHER | LOC: M LAB REF 17:30 | PROVIDERS: ATTEND Nurse Practitioner Family | DX: E83.42 Hypomagnesemia (principal) ==

== ENCOUNTER → 2022-05-05 | Outpatient (REF) | payer OTHER ==
[2022-05-05 17:52] LABS: PERCENT SATURATION 25.1 % (19.7-50.0)
== END ==
LOC: M LAB REF 16:42
PROVIDERS: ATTEND Nurse Practitioner Family
DX: D50.9 Iron deficiency anemia, unspecified (principal)

== ENCOUNTER 2023-04-17 14:50 | Inpatient (IN) | payer OTHER ==
[~2023-04-17] VITALS: Ht 175.3 cm; Wt 106.0 kg
[~2023-04-17 14:50] MED LIST changes: +BLOOKIT21 XX; +CALC1CAP31 PO; +CRAN400C PO; +GLUC1TES2 XX; +JANU25TA PO; +LANC30MI XX; +LANTINJ4 SC; +LEVO1TAB39 PO; +LEVO50TA5 PO; +MIRA1POW3 PO; +NYST1POW9 TOP; +OXYC1TAB23 PO; +PANT40TA29 PO; +PEN1MIS21 SC; +RENV2TAB PO; +RISATAB3 PO; +SENN-188 PO; +SYNT25TA PO; +VITA100093 PO; +VITA500T40 PO; +[UNRECOGNIZED DRUG - CODE] IV
[2023-04-17 17:19] LABS: BASO # 0.1 10^3/uL (0.0-0.2); BASO % 1.4 % (0.0-1.0); EOS # 0.5 10^3/uL (0.0-0.5); EOS % 7.4 % (0.0-3.0); HEMATOCRIT 24.4 % (42.0-52.0); HEMOGLOBIN 7.6 g/dl (13.5-17.5); LYMPH # 1.8 10^3/uL (1.5-5.0); LYMPH % 26.4 % (24.0-44.0); MEAN CORPUSCULAR HEMOGLOBIN 28.8 pg (27.0-33.0); MEAN CORPUSCULAR HGB CONC 31.1 g/dl (32.0-36.5); MEAN CORPUSCULAR VOLUME 92.4 fl (80.0-96.0); MONO # 0.5 10^3/uL (0.0-0.8); MONO % 6.4 % (2.0-8.0); PLATELET COUNT, AUTOMATED 189 10^3/uL (150-450); RED BLOOD COUNT 2.64 10^6/uL (4.30-6.10)
[2023-04-17 18:04] LABS: CALCIUM LEVEL 9.3 MG/DL (8.3-10.6); CREATININE FOR GFR 11.93 MG/DL (0.70-1.30); GLOMERULAR FILTRATION RATE 4.6 (>49); POTASSIUM SERUM 5.1 MMOL/L (3.5-5.1)
[2023-04-17 19:36] LABS: INR 1.14; PROTHROMBIN TIME 14.8 SECONDS (12.5-14.5)
[2023-04-17 19:37] LABS: PARTIAL THROMBOPLASTIN TIME 37.3 SECONDS (24.8-34.2)
[2023-04-17 19:53] LABS: RSV AMPLIFICATION NEGATIVE (NEGATIVE)
[2023-04-17] MEDS: METOPROLOL TART 25 MG TABLET PO SCH (21:00)
[2023-04-17] MEDS ORDERED: LEVO1TAB39 PO (21:21)
[2023-04-17] MEDS ORDERED: PERCOCET PO (21:21)
[2023-04-17] MEDS ORDERED: PANT-23 PO (21:21)
[2023-04-17] MEDS ORDERED: LANTINJ4 SC (21:21)
[2023-04-17] MEDS ORDERED: JANU25TA PO (21:21)
[2023-04-17] MEDS ORDERED: NYST1POW9 TOP (21:21)
[2023-04-17] MEDS ORDERED: SEVE800T3 PO (21:21)
[2023-04-17] MEDS ORDERED: LEVO25TA5 PO (21:21)
[2023-04-17] MEDS ORDERED: RISATAB3 PO (21:21)
[2023-04-17] MEDS ORDERED: TORS20TA2 PO (21:21)
[2023-04-17] MEDS ORDERED: INSU100I48 SQ (21:21)
[2023-04-17] MEDS ORDERED: HOME MED LIST COMPLETE! XX SCH (21:25)
[2023-04-17] MEDS ORDERED: ACETAMINOPHEN TAB 650MG DOSE (2X325MG) PO PRN (23:00)
[2023-04-17] MEDS ORDERED: GLUCOSE 4GM CHEW TABLET PO PRN (23:00)
[2023-04-17] MEDS ORDERED: GLUCAGON INJ 1MG VIAL SC PRN (23:00)
[2023-04-17] MEDS ORDERED: NYSTATIN 100,000 UNITS/GM TOPICAL PWD 15GM TOP PRN (23:00)
[2023-04-17] MEDS ORDERED: DEXTROSE 50% 50ML SYRINGE IV PRN (23:00)
[2023-04-18] MEDS ORDERED: VANCOMYCIN HCL 1,000 MG, VIAL MATE ADAPTER 1 EACH in D5W 250 ML IV ONE ×3
[2023-04-18] MEDS ORDERED: VANCOMYCIN HCL 500 MG in D5W MINI-BAG PLUS 100 ML IV ONE (01:00)
[2023-04-18] MEDS ORDERED: VANCOMYCIN HCL 750 MG, VIAL MATE ADAPTER 1 EACH in D5W 250 ML IV SCH (06:00)
[2023-04-18] MEDS: LEVOTHYROXINE 25MCG TABLET (0.025MG) PO SCH (06:19)
[2023-04-18 06:31] LABS: VANCOMYCIN RANDOM 21.9 UG/ML
[2023-04-18 06:34] LABS: CALCIUM LEVEL 9.1 MG/DL (8.3-10.6); CREATININE FOR GFR 11.65 MG/DL (0.70-1.30); GLOMERULAR FILTRATION RATE 4.8 (>49); POTASSIUM SERUM 5.2 MMOL/L (3.5-5.1)
[2023-04-18 07:13] LABS: HEMATOCRIT 26.1 % (42.0-52.0); HEMOGLOBIN 8.3 g/dl (13.5-17.5); MEAN CORPUSCULAR HEMOGLOBIN 29.2 pg (27.0-33.0); MEAN CORPUSCULAR VOLUME 91.9 fl (80.0-96.0); RED BLOOD COUNT 2.84 10^6/uL (4.30-6.10); WHITE BLOOD COUNT 7.2 10^3/uL (4.0-10.0)
[2023-04-18 07:14] LABS: MEAN CORPUSCULAR HGB CONC 31.8 g/dl (32.0-36.5); PLATELET COUNT, AUTOMATED 180 10^3/uL (150-450)
[2023-04-18] MEDS ORDERED: SODIUM CHLORIDE 0.9% 1000ML IV PRN (07:15)
[2023-04-18] MEDS ORDERED: DARBEPOETIN 100MCG/0.5ML *DIALYSIS* SYRINGE IV SCH (07:15)
[2023-04-18] MEDS ORDERED: HEPARIN 1,000UNITS/ML 10ML VIAL (FOR RADIOLOGY & DIALYSIS ONLY) XX SCH (07:15)
[2023-04-18] MEDS ORDERED: HEPARIN 1,000UNITS/ML 10ML VIAL (FOR RADIOLOGY & DIALYSIS ONLY) IV PRN (07:15)
[2023-04-18] MEDS: INSULIN LISPRO (NovoLOG) PER UNIT SC SCH ×4 (07:30→20:11)
[2023-04-18 07:50] LABS: ALBUMIN 2.9 G/DL (3.2-5.2); ALKALINE PHOSPHATASE 78 U/L (46-116); ALT/SGPT < 9 U/L (7.0-40); AST/SGOT 11 U/L (<34); BILIRUBIN,TOTAL 0.2 MG/DL (0.3-1.2); BLOOD UREA NITROGEN 102 MG/DL (9-23); CALCIUM LEVEL 9.2 MG/DL (8.3-10.6); CARBON DIOXIDE LEVEL 21 MMOL/L (20-31); CHLORIDE LEVEL 102 MMOL/L (98-107); CREATININE FOR GFR 11.77 MG/DL (0.70-1.30); GLOMERULAR FILTRATION RATE 4.7 (>49); GLUCOSE, FASTING 93 MG/DL (74-106); POTASSIUM SERUM 4.9 MMOL/L (3.5-5.1); SODIUM LEVEL 138 MMOL/L (136-145); TOTAL PROTEIN 6.2 G/DL (5.7-8.2)
[2023-04-18] MEDS: (RENVELA) SEVELAMER **CARBONate** 800 MG TAB PO SCH ×3 (08:00→18:03)
[2023-04-18 08:48] LABS: IRON (FE) 59 UG/DL (65-175); PERCENT SATURATION 32.1 % (19.7-50.0); TOTAL IRON BINDING CAPACITY 184 UG/DL (250-425)
[2023-04-18] MEDS ORDERED: LEVEMIR (INSULIN DETEMIR) 1 UNITS/0.01ML SC SCH ×2 (09:00→21:00)
[2023-04-18] MEDS ORDERED: PIPERACILLIN/TAZOBACTAM SOD 3.375 GM in D5W MINI-BAG PLUS 50 ML IV SCH (11:40)
[2023-04-18] MEDS ORDERED: PERCOCET 5MG/325MG TAB PO PRN (12:10)
[2023-04-18 12:25] LABS: ERYTHROCYTE SEDIMENTATION RATE 75 mm/hr (0-20)
[2023-04-18] MEDS: LACTOBACILLUS ACIDOPHILUS CAP (BACID) PO SCH ×2 (12:40→20:10)
[2023-04-18] MEDS: SITagliptin 50 MG TAB (JANUVIA) PO SCH (12:41)
[2023-04-18] MEDS: VITAMIN D 1,000 INTERNATIONAL UNITS TABLET PO SCH (12:41)
[2023-04-18] MEDS: TORSEMIDE 20 MG TAB PO SCH (12:41)
[2023-04-18] MEDS: PANTOPRAZOLE 40MG TAB (PROTONIX) PO SCH (12:41)
[2023-04-18] MEDS: ASPIRIN 81MG ENTERIC TABLET PO SCH (12:41)
[2023-04-18] MEDS: METOPROLOL TART 25 MG TABLET PO SCH ×2 (12:44→20:11)
[2023-04-18] MEDS ORDERED: PILL CUTTER 1 EACH XX ONE (12:47)
[2023-04-18 12:52] LABS: HEPATITIS B SURFACE ANTIGEN NEGATIVE (NEGATIVE)
[2023-04-18] MEDS: PIPERACILLIN/TAZOBACTAM SOD 4.5 GM in D5W MINI-BAG PLUS 50 ML IV SCH (13:10)
[2023-04-18] MEDS: HEPARIN SOD (PORCINE) 5000UNITS/ML 1ML VIAL/SYRINGE SC SCH ×2 (13:25→20:11)
[2023-04-18 16:29] VITALS: BP 106/72; TEMP 98.3; O2SAT 96
[2023-04-18] MEDS: CALCITRIOL 0.25 MCG CAP (S0169) PO SCH (18:06)
[2023-04-18 19:40] VITALS: BP 117/66; TEMP 97; O2SAT 100
[2023-04-18 23:26] VITALS: BP 124/68; TEMP 97.2; O2SAT 100
[2023-04-19] MEDS: PIPERACILLIN/TAZOBACTAM SOD 4.5 GM in D5W MINI-BAG PLUS 50 ML IV SCH ×2 (00:58→13:27)
[2023-04-19 03:59] VITALS: BP 124/69; TEMP 97.3; O2SAT 99
[2023-04-19 05:45] LABS: HEMATOCRIT 25.4 % (42.0-52.0); MEAN CORPUSCULAR HGB CONC 31.5 g/dl (32.0-36.5); PLATELET COUNT, AUTOMATED 174 10^3/uL (150-450); RED BLOOD COUNT 2.76 10^6/uL (4.30-6.10); WHITE BLOOD COUNT 8.2 10^3/uL (4.0-10.0)
[2023-04-19 06:07] LABS: VANCOMYCIN RANDOM 22.5 UG/ML
[2023-04-19] MEDS: LEVOTHYROXINE 25MCG TABLET (0.025MG) PO SCH (06:07)
[2023-04-19 06:09] LABS: ALBUMIN 2.8 G/DL (3.2-5.2); ALKALINE PHOSPHATASE 78 U/L (46-116); ALT/SGPT < 9 U/L (7.0-40); AST/SGOT 10 U/L (<34); BILIRUBIN,TOTAL 0.3 MG/DL (0.3-1.2); BLOOD UREA NITROGEN 54 MG/DL (9-23); CALCIUM LEVEL 8.8 MG/DL (8.3-10.6); CARBON DIOXIDE LEVEL 24 MMOL/L (20-31); CHLORIDE LEVEL 101 MMOL/L (98-107); CREATININE FOR GFR 7.45 MG/DL (0.70-1.30); GLUCOSE, FASTING 115 MG/DL (74-106); POTASSIUM SERUM 4.6 MMOL/L (3.5-5.1); SODIUM LEVEL 137 MMOL/L (136-145); TOTAL PROTEIN 6.3 G/DL (5.7-8.2)
[2023-04-19 08:22] VITALS: BP 134/77; TEMP 98.1; O2SAT 96
[2023-04-19] MEDS ORDERED: PILL CUTTER 1 EACH XX ONE (09:41)
[2023-04-19] MEDS: INSULIN LISPRO (NovoLOG) PER UNIT SC SCH ×4 (09:53→20:20)
[2023-04-19] MEDS: PANTOPRAZOLE 40MG TAB (PROTONIX) PO SCH (09:54)
[2023-04-19] MEDS: CALCITRIOL 0.25 MCG CAP (S0169) PO SCH (09:54)
[2023-04-19] MEDS: ASPIRIN 81MG ENTERIC TABLET PO SCH (09:54)
[2023-04-19] MEDS: VITAMIN D 1,000 INTERNATIONAL UNITS TABLET PO SCH (09:54)
[2023-04-19] MEDS: TORSEMIDE 20 MG TAB PO SCH (09:54)
[2023-04-19] MEDS: SITagliptin 50 MG TAB (JANUVIA) PO SCH (09:55)
[2023-04-19] MEDS: LACTOBACILLUS ACIDOPHILUS CAP (BACID) PO SCH ×2 (09:55→20:21)
[2023-04-19] MEDS: HEPARIN SOD (PORCINE) 5000UNITS/ML 1ML VIAL/SYRINGE SC SCH ×2 (09:56→20:21)
[2023-04-19] MEDS: METOPROLOL TART 25 MG TABLET PO SCH ×2 (09:56→20:21)
[2023-04-19] MEDS: (RENVELA) SEVELAMER **CARBONate** 800 MG TAB PO SCH ×3 (10:00→18:40)
[2023-04-19 12:00] VITALS: BP 115/74; TEMP 98.2; O2SAT 95
[2023-04-19 15:33] VITALS: BP 110/74; TEMP 96.7; O2SAT 100
[2023-04-19 19:26] VITALS: BP 118/73; TEMP 97.1; O2SAT 100
[2023-04-20] MEDS: PIPERACILLIN/TAZOBACTAM SOD 4.5 GM in D5W MINI-BAG PLUS 50 ML IV SCH ×2 (01:06→13:08)
[2023-04-20 04:14] VITALS: BP 132/79; TEMP 97.7; O2SAT 99
[2023-04-20] MEDS: LEVOTHYROXINE 25MCG TABLET (0.025MG) PO SCH (06:15)
[2023-04-20 06:47] LABS: HEMATOCRIT 27.3 % (42.0-52.0); HEMOGLOBIN 8.5 g/dl (13.5-17.5); MEAN CORPUSCULAR HEMOGLOBIN 28.7 pg (27.0-33.0); MEAN CORPUSCULAR HGB CONC 31.1 g/dl (32.0-36.5); MEAN CORPUSCULAR VOLUME 92.2 fl (80.0-96.0); PLATELET COUNT, AUTOMATED 175 10^3/uL (150-450); RED BLOOD COUNT 2.96 10^6/uL (4.30-6.10); WHITE BLOOD COUNT 7.9 10^3/uL (4.0-10.0)
[2023-04-20] MEDS: VITAMIN D 1,000 INTERNATIONAL UNITS TABLET PO SCH (07:05)
[2023-04-20] MEDS: ASPIRIN 81MG ENTERIC TABLET PO SCH (07:05)
[2023-04-20] MEDS ORDERED: SODIUM CHLORIDE 0.9% 1000ML IV PRN (07:10)
[2023-04-20] MEDS ORDERED: HEPARIN 1,000UNITS/ML 10ML VIAL (FOR RADIOLOGY & DIALYSIS ONLY) IV PRN (07:10)
[2023-04-20] MEDS ORDERED: HEPARIN 1,000UNITS/ML 10ML VIAL (FOR RADIOLOGY & DIALYSIS ONLY) XX SCH (07:10)
[2023-04-20 07:13] LABS: VANCOMYCIN RANDOM 19.4 UG/ML
[2023-04-20 07:14] LABS: ALBUMIN 2.8 G/DL (3.2-5.2); ALKALINE PHOSPHATASE 76 U/L (46-116); ALT/SGPT < 9 U/L (7.0-40); AST/SGOT 10 U/L (<34); BILIRUBIN,TOTAL 0.3 MG/DL (0.3-1.2); BLOOD UREA NITROGEN 61 MG/DL (9-23); CALCIUM LEVEL 9.1 MG/DL (8.3-10.6); CARBON DIOXIDE LEVEL 23 MMOL/L (20-31); CHLORIDE LEVEL 100 MMOL/L (98-107); CREATININE FOR GFR 7.92 MG/DL (0.70-1.30); GLOMERULAR FILTRATION RATE 7.4 (>49); GLUCOSE, FASTING 103 MG/DL (74-106); POTASSIUM SERUM 4.4 MMOL/L (3.5-5.1); SODIUM LEVEL 137 MMOL/L (136-145); TOTAL PROTEIN 6.3 G/DL (5.7-8.2)
[2023-04-20 07:39] VITALS: BP 149/77; TEMP 96; O2SAT 99
[2023-04-20] MEDS: (RENVELA) SEVELAMER **CARBONate** 800 MG TAB PO SCH ×3 (07:57→17:44)
[2023-04-20] MEDS: INSULIN LISPRO (NovoLOG) PER UNIT SC SCH ×4 (07:57→20:43)
[2023-04-20] MEDS: SITagliptin 50 MG TAB (JANUVIA) PO SCH (13:22)
[2023-04-20] MEDS: LACTOBACILLUS ACIDOPHILUS CAP (BACID) PO SCH ×2 (13:22→20:43)
[2023-04-20] MEDS: PANTOPRAZOLE 40MG TAB (PROTONIX) PO SCH (13:22)
[2023-04-20] MEDS: CALCITRIOL 0.25 MCG CAP (S0169) PO SCH (13:22)
[2023-04-20] MEDS: HEPARIN SOD (PORCINE) 5000UNITS/ML 1ML VIAL/SYRINGE SC SCH ×2 (13:23→20:43)
[2023-04-20] MEDS: METOPROLOL TART 25 MG TABLET PO SCH ×2 (13:23→20:43)
[2023-04-20 15:47] VITALS: BP 130/70; TEMP 96.6; O2SAT 100
[2023-04-20 20:14] VITALS: BP 118/75; TEMP 97.3; O2SAT 100
[2023-04-20 21:41] VITALS: BP 116/78; TEMP 96; O2SAT 99
[2023-04-21 05:41] VITALS: BP 130/72; TEMP 96.5; O2SAT 100
[2023-04-21] MEDS: LEVOTHYROXINE 25MCG TABLET (0.025MG) PO SCH (06:04)
[2023-04-21 06:14] LABS: HEMATOCRIT 26.2 % (42.0-52.0); HEMOGLOBIN 8.2 g/dl (13.5-17.5); MEAN CORPUSCULAR HGB CONC 31.3 g/dl (32.0-36.5); MEAN CORPUSCULAR VOLUME 92.6 fl (80.0-96.0); PLATELET COUNT, AUTOMATED 158 10^3/uL (150-450); RED BLOOD COUNT 2.83 10^6/uL (4.30-6.10); WHITE BLOOD COUNT 8.2 10^3/uL (4.0-10.0)
[2023-04-21 06:42] LABS: ALKALINE PHOSPHATASE 74 U/L (46-116); ALT/SGPT < 9 U/L (7.0-40); AST/SGOT 8 U/L (<34); BILIRUBIN,TOTAL 0.2 MG/DL (0.3-1.2); BLOOD UREA NITROGEN 32 MG/DL (9-23); CARBON DIOXIDE LEVEL 23 MMOL/L (20-31); CHLORIDE LEVEL 101 MMOL/L (98-107); CREATININE FOR GFR 5.41 MG/DL (0.70-1.30); GLOMERULAR FILTRATION RATE 11.5 (>49); GLUCOSE, FASTING 121 MG/DL (74-106); SODIUM LEVEL 134 MMOL/L (136-145); TOTAL PROTEIN 6.9 G/DL (5.7-8.2)
[2023-04-21] MEDS: (RENVELA) SEVELAMER **CARBONate** 800 MG TAB PO SCH ×2 (07:14→12:42)
[2023-04-21] MEDS: CALCITRIOL 0.25 MCG CAP (S0169) PO SCH (09:18)
[2023-04-21] MEDS: ASPIRIN 81MG ENTERIC TABLET PO SCH (09:18)
[2023-04-21] MEDS: LACTOBACILLUS ACIDOPHILUS CAP (BACID) PO SCH (09:18)
[2023-04-21] MEDS: INSULIN LISPRO (NovoLOG) PER UNIT SC SCH ×2 (09:18→12:42)
[2023-04-21 09:19] VITALS: BP 130/72
[2023-04-21] MEDS: METOPROLOL TART 25 MG TABLET PO SCH (09:19)
[2023-04-21] MEDS: VITAMIN D 1,000 INTERNATIONAL UNITS TABLET PO SCH (09:19)
[2023-04-21] MEDS: TORSEMIDE 20 MG TAB PO SCH (09:19)
[2023-04-21] MEDS: PANTOPRAZOLE 40MG TAB (PROTONIX) PO SCH (09:19)
[2023-04-21] MEDS: SITagliptin 50 MG TAB (JANUVIA) PO SCH (09:19)
[2023-04-21] MEDS: HEPARIN SOD (PORCINE) 5000UNITS/ML 1ML VIAL/SYRINGE SC SCH (09:24)
[2023-04-21 14:00] VITALS: BP 107/64; TEMP 96.6; O2SAT 100
[2023-04-21] MEDS ORDERED: LANTINJ4 SC (14:06)
[2023-04-21] MEDS ORDERED: METO1TAB87 PO (14:06)
== END 2023-04-21 15:46 | disposition home health service (06) | DRG 501 ==
LOC: M ED 14:50 → M ED INP 22:57 → ENRESERV 04-18 14:32 → M PCU 04-18 16:15 → M MS4PR 04-20 20:58
PROVIDERS: ADMIT Internal Medicine; ATTEND Internal Medicine Nephrology
DX: N50.89 Other specified disorders of the male genital organs (principal); N18.6 End stage renal disease; I50.22 Chronic systolic (congestive) heart failure; E11.22 Type 2 diabetes mellitus with diabetic chronic kidney disease; I48.92 Unspecified atrial flutter; E11.622 Type 2 diabetes mellitus with other skin ulcer; E11.51 Type 2 diabetes mellitus with diabetic peripheral angiopathy without gangrene; E87.79 Other fluid overload; L97.519 Non-pressure chronic ulcer of other part of right foot with unspecified severity; E83.39 Other disorders of phosphorus metabolism; E87.5 Hyperkalemia; D63.1 Anemia in chronic kidney disease; D50.9 Iron deficiency anemia, unspecified; K21.9 Gastro-esophageal reflux disease without esophagitis; E66.9 Obesity, unspecified; E03.9 Hypothyroidism, unspecified; I25.10 Atherosclerotic heart disease of native coronary artery without angina pectoris; Z91.119 Patient's noncompliance with dietary regimen due to unspecified reason; I25.5 Ischemic cardiomyopathy; Z95.1 Presence of aortocoronary bypass graft; Z79.899 Other long term (current) drug therapy; Z79.4 Long term (current) use of insulin; K59.00 Constipation, unspecified

== ENCOUNTER 2024-03-12 21:31 | Inpatient (IN) | payer OTHER ==
[~2024-03-12] VITALS: Ht 175.3 cm; Wt 129.4 kg
[~2024-03-12 21:31] MED LIST changes: +B-12100020 PO; -CRAN400C PO; +CRANBERRY400 MG PO; -HYDR-3910 PO; +HYDR25TA87 PO; +INSU100I48 SQ; +LEVO112T2 PO; +LEVO25TA5 PO; +METO1TAB87 PO; -MIRA1POW3 PO; +MIRA33506 PO; +PANT-23 PO; +PEN-308 SC; -PEN1MIS21 SC; +PERCOCET PO; +SEVE800T3 PO; +SODI325T9 PO
[2024-03-12 22:34] LABS: VENOUS BASE EXCESS -7.2 (-2.0-2.0); VENOUS HCO3 19.1 MMOL/L (23.0-27.0); VENOUS O2 SATURATION 57.4 % (60.0-80.0); VENOUS PARTIAL PRESSURE CO2 41.4 mmHg (38.0-50.0); VENOUS PARTIAL PRESSURE O2 30.4 mmHg (30.0-50.0); VENOUS PH 7.281 UNITS (7.330-7.430); VENOUS TOTAL CO2 20.3 MMOL/L (24.0-28.0)
[2024-03-12 22:38] LABS: BASO # 0.1 10^3/uL (0.0-0.2); BASO % 0.7 % (0.0-1.0); EOS # 0.5 10^3/uL (0.0-0.5); EOS % 3.5 % (0.0-3.0); HEMATOCRIT 24.9 % (42.0-52.0); HEMOGLOBIN 8.2 g/dl (13.5-17.5); LYMPH # 1.7 10^3/uL (1.5-5.0); LYMPH % 11.9 % (24.0-44.0); MEAN CORPUSCULAR HEMOGLOBIN 29.8 pg (27.0-33.0); MEAN CORPUSCULAR HGB CONC 32.9 g/dl (32.0-36.5); MEAN CORPUSCULAR VOLUME 90.5 fl (80.0-96.0); MONO # 0.8 10^3/uL (0.0-0.8); MONO % 5.5 % (2.0-8.0); PLATELET COUNT, AUTOMATED 226 10^3/uL (150-450); RED BLOOD COUNT 2.75 10^6/uL (4.30-6.10); WHITE BLOOD COUNT 14.3 10^3/uL (4.0-10.0)
[2024-03-12 22:51] LABS: INR 1.17; PARTIAL THROMBOPLASTIN TIME 42.2 SECONDS (24.8-34.2); PROTHROMBIN TIME 14.5 SECONDS (12.5-14.5)
[2024-03-12 23:03] LABS: ETHYL ALCOHOL (ETHANOL) < 0.003 % (0.000-0.010); LIPASE 98 U/L (12-53)
[2024-03-12 23:04] LABS: ALBUMIN 2.9 G/DL (3.2-5.2); ALKALINE PHOSPHATASE 74 U/L (46-116); ALT/SGPT 15 U/L (7.0-40); AST/SGOT 22 U/L (<34); BILIRUBIN,DIRECT < 0.1 MG/DL (<0.4); BILIRUBIN,TOTAL 0.3 MG/DL (0.3-1.2); BLOOD UREA NITROGEN 69 MG/DL (9-23); CALCIUM LEVEL 8.7 MG/DL (8.3-10.6); CARBON DIOXIDE LEVEL 20 MMOL/L (20-31); CHLORIDE LEVEL 111 MMOL/L (98-107); CPK CREATINE PHOSPHOKINASE 858 U/L (46-171); GLOMERULAR FILTRATION RATE 14.6 (>49); GLUCOSE, FASTING 127 MG/DL (74-106); MB/CK RELATIVE INDEX 1.51 (< OR =4); POTASSIUM SERUM 4.4 MMOL/L (3.5-5.1); SODIUM LEVEL 139 MMOL/L (136-145); TOTAL PROTEIN 6.4 G/DL (5.7-8.2)
[2024-03-12 23:11] LABS: PROCALCITONIN 0.24 ng/ml
[2024-03-12 23:15] LABS: THYROID STIMULATING HORMONE > 150.000 uIU/ML (0.55-4.78)
[2024-03-13] MEDS: NS 500 ML IV ONE (00:03)
[2024-03-13 00:36] LABS: CK-MB VALUE MASS 14.5 NG/ML (<3.6)
[2024-03-13 00:37] LABS: CPK CREATINE PHOSPHOKINASE 882 U/L (46-171); MB/CK RELATIVE INDEX 1.64 (< OR =4)
[2024-03-13] MEDS ORDERED: GLUCOSE 4 GM CHEW PO PRN ×2 (00:50→15:05)
[2024-03-13] MEDS ORDERED: GLUCAGON INJ 1MG VIAL SC PRN ×2 (00:50→15:05)
[2024-03-13] MEDS ORDERED: DEXTROSE 50% 50ML SYRINGE IV PRN ×2 (00:50→15:05)
[2024-03-13 01:17] LABS: FREE T4 < 0.10 NG/DL (0.89-1.76)
[2024-03-13] MEDS: PIPERACILLIN/TAZOBACTAM SOD 3.375 GM in D5W MINI-BAG PLUS 50 ML IV ONE (01:18)
[2024-03-13] MEDS ORDERED: LEVO25TA5 PO (01:25)
[2024-03-13] MEDS ORDERED: HOME MED LIST COMPLETE! XX SCH (01:30)
[2024-03-13] MEDS: VANCOMYCIN HCL 1,000 MG, VIAL MATE ADAPTER 1 EACH in D5W 250 ML IV ONE ×2 (02:39→04:35)
[2024-03-13 02:46] LABS: AMPHETAMINES LEVEL URINE NEGATIVE (NEGATIVE); BARBITURATES URINE NEGATIVE (NEGATIVE); BENZODIAZEPINES URINE NEGATIVE (NEGATIVE); COCAINE METABOLITE URINE NEGATIVE (NEGATIVE); METHADONE URINE NEGATIVE (NEGATIVE); OPIATES URINE NEGATIVE (NEGATIVE)
[2024-03-13 02:47] LABS: CANNABINOIDS URINE NEGATIVE (NEGATIVE); PHENCYCLIDINE URINE NEGATIVE (NEGATIVE)
[2024-03-13] MEDS: LEVOTHYROXINE 150MCG TABLET (0.15MG) PO ONE (02:59)
[2024-03-13 03:27] VITALS: BP 140/82; TEMP 97; O2SAT 98
[2024-03-13 05:19] VITALS: BP 132/73; TEMP 97.2; O2SAT 93
[2024-03-13] MEDS: HEPARIN SOD (PORCINE) 5000UNITS/ML 1ML VIAL/SYRINGE SC SCH (06:21)
[2024-03-13] MEDS ORDERED: VANCOMYCIN INTERMITTENT/PULSE DOSING BY CLINICAL PHARMACIST PER DOSING PROTOCOL XX SCH (06:30)
[2024-03-13 08:25] LABS: BASO # 0.1 10^3/uL (0.0-0.2); BASO % 0.8 % (0.0-1.0); EOS # 0.5 10^3/uL (0.0-0.5); EOS % 3.2 % (0.0-3.0); HEMATOCRIT 25.6 % (42.0-52.0); HEMOGLOBIN 8.4 g/dl (13.5-17.5); LYMPH % 12.8 % (24.0-44.0); MEAN CORPUSCULAR HEMOGLOBIN 30.4 pg (27.0-33.0); MEAN CORPUSCULAR HGB CONC 32.8 g/dl (32.0-36.5); MEAN CORPUSCULAR VOLUME 92.8 fl (80.0-96.0); MONO # 0.9 10^3/uL (0.0-0.8); MONO % 6.1 % (2.0-8.0); NEUTROPHILS # 11.7 10^3/uL (1.5-8.5); NEUTROPHILS % 75.9 % (36.0-66.0); PLATELET COUNT, AUTOMATED 202 10^3/uL (150-450); RED BLOOD COUNT 2.76 10^6/uL (4.30-6.10); WHITE BLOOD COUNT 15.4 10^3/uL (4.0-10.0)
[2024-03-13] MEDS: NYSTATIN 100,000 UNITS/GM TOPICAL PWD 15GM TOP SCH (09:00)
[2024-03-13] MEDS: metroNIDAZOLE 500 MG in IV 1 EA IV SCH (09:11)
[2024-03-13 09:40] LABS: C REACTIVE PROTEIN QUANTITATIV 10.4 MG/DL (<1.0); CHOLESTEROL LEVEL 375 MG/DL (<200); CHOLESTEROL RISK RATIO 15.62 (<5); TRIGLYCERIDES LEVEL 489 MG/DL (<150)
[2024-03-13 09:41] LABS: CALCIUM LEVEL 8.1 MG/DL (8.3-10.6); CORTISOL AM 18.1 UG/DL (4.3-22.4); CREATININE FOR GFR 4.23 MG/DL (0.70-1.30); GLOMERULAR FILTRATION RATE 15.3 (>49); POTASSIUM SERUM 4.5 MMOL/L (3.5-5.1)
[2024-03-13 09:49] LABS: PROCALCITONIN 0.21 ng/ml
[2024-03-13] MEDS: CEFEPIME HCL 1 GM in D5W MINI-BAG PLUS 50 ML IV SCH (10:10)
[2024-03-13] MEDS: CALCITRIOL 0.25 MCG CAP (S0169) PO SCH (10:11)
[2024-03-13] MEDS: ASPIRIN 81MG ENTERIC TABLET PO SCH (10:11)
[2024-03-13] MEDS: METOPROLOL TART 25 MG TABLET PO SCH (10:13)
[2024-03-13] MEDS: SODIUM BICARBONATE 325 MG TAB PO SCH (10:29)
[2024-03-13] MEDS: TORSEMIDE 20 MG TAB PO SCH (10:30)
[2024-03-13 12:00] VITALS: BP 138/84; TEMP 97.2; O2SAT 99
[2024-03-13] MEDS: (RENVELA) SEVELAMER **CARBONate** 800 MG TAB PO SCH (13:25)
[2024-03-13] MEDS: metroNIDAZOLE (FLAGYL) 500MG TABLET PO SCH (14:37)
[2024-03-13] MEDS: INSULIN LISPRO (NovoLOG) PER UNIT SC SCH ×3 (16:55→21:00)
[2024-03-13] MEDS: PANTOPRAZOLE 40MG TAB (PROTONIX) PO SCH (17:56)
[2024-03-13 21:52] VITALS: BP 134/72; TEMP 97.3; O2SAT 98
[2024-03-14] VITALS (8 sets, daily range): BP systolic 129–156; BP diastolic 68–82; TEMP 97–97.5; O2SAT 93–96
[2024-03-14] MEDS: LEVOTHYROXINE 150MCG TABLET (0.15MG) PO SCH (05:20)
[2024-03-14 06:37] LABS: VANCOMYCIN RANDOM 11.1 UG/ML
[2024-03-14 06:38] LABS: CREATININE FOR GFR 4.37 MG/DL (0.70-1.30); GLOMERULAR FILTRATION RATE 14.7 (>49); POTASSIUM SERUM 4.3 MMOL/L (3.5-5.1)
[2024-03-14 07:26] LABS: HEMATOCRIT 24.1 % (42.0-52.0); HEMOGLOBIN 7.9 g/dl (13.5-17.5); MEAN CORPUSCULAR HEMOGLOBIN 30.4 pg (27.0-33.0); MEAN CORPUSCULAR HGB CONC 32.8 g/dl (32.0-36.5); MEAN CORPUSCULAR VOLUME 92.7 fl (80.0-96.0); PLATELET COUNT, AUTOMATED 192 10^3/uL (150-450)
[2024-03-14] MEDS: HEPARIN SOD (PORCINE) 5000UNITS/ML 1ML VIAL/SYRINGE SQ SCH (09:53)
[2024-03-14] MEDS: SODIUM BICARBONATE 75 MEQ in NS 0.45% 1,000 ML IV SCH (09:57)
[2024-03-14] MEDS: VANCOMYCIN HCL 1,000 MG, VIAL MATE ADAPTER 1 EACH in D5W 250 ML IV SCH (09:57)
[2024-03-14 10:47] LABS: PERCENT SATURATION 22.4 % (19.7-50.0)
[2024-03-14 10:50] LABS: FOLATE 11.9 NG/ML (>5.4)
[2024-03-14 17:10] LABS: CALCIUM LEVEL 8.1 MG/DL (8.3-10.6); CREATININE FOR GFR 4.29 MG/DL (0.70-1.30); POTASSIUM SERUM 4.1 MMOL/L (3.5-5.1)
[2024-03-14 17:13] LABS: FERRITIN 1444.7 NG/ML (10.5-307.3)
[2024-03-14] MEDS ORDERED: PERCOCET 5MG/325MG TAB PO PRN (18:25)
[2024-03-15 04:30] VITALS: BP 150/76; TEMP 97.3; O2SAT 96
[2024-03-15 06:58] LABS: BASO # 0.1 10^3/uL (0.0-0.2); EOS # 0.4 10^3/uL (0.0-0.5); HEMOGLOBIN 8.1 g/dl (13.5-17.5); LYMPH # 1.3 10^3/uL (1.5-5.0); LYMPH % 11.5 % (24.0-44.0); MEAN CORPUSCULAR HEMOGLOBIN 30.1 pg (27.0-33.0); MEAN CORPUSCULAR HGB CONC 33.8 g/dl (32.0-36.5); MEAN CORPUSCULAR VOLUME 89.2 fl (80.0-96.0); MONO # 0.6 10^3/uL (0.0-0.8); MONO % 5.7 % (2.0-8.0); NEUTROPHILS # 8.4 10^3/uL (1.5-8.5); NEUTROPHILS % 76.1 % (36.0-66.0); PLATELET COUNT, AUTOMATED 202 10^3/uL (150-450); RED BLOOD COUNT 2.69 10^6/uL (4.30-6.10)
[2024-03-15 07:20] LABS: CALCIUM LEVEL 8.1 MG/DL (8.3-10.6); CREATININE FOR GFR 4.28 MG/DL (0.70-1.30); GLOMERULAR FILTRATION RATE 15.1 (>49); POTASSIUM SERUM 4.2 MMOL/L (3.5-5.1)
[2024-03-15] MEDS: VANCOMYCIN HCL 500 MG in D5W MINI-BAG PLUS 100 ML IV SCH (11:31)
[2024-03-15] MEDS: TORSEMIDE 20 MG TAB PO SCH (11:32)
[2024-03-15] MEDS: SODIUM BICARBONATE 325 MG TAB PO SCH (11:32)
[2024-03-15 12:04] VITALS: BP 146/75; TEMP 97.5; O2SAT 98
[2024-03-15 20:16] VITALS: BP 144/77; TEMP 97.5; O2SAT 94
[2024-03-16 04:15] VITALS: BP 148/76; TEMP 97.3; O2SAT 95
[2024-03-16 06:04] LABS: BASO # 0.1 10^3/uL (0.0-0.2); BASO % 1.1 % (0.0-1.0); EOS # 0.4 10^3/uL (0.0-0.5); HEMATOCRIT 25.5 % (42.0-52.0); HEMOGLOBIN 8.4 g/dl (13.5-17.5); LYMPH # 1.6 10^3/uL (1.5-5.0); LYMPH % 15.9 % (24.0-44.0); MEAN CORPUSCULAR HEMOGLOBIN 29.3 pg (27.0-33.0); MEAN CORPUSCULAR HGB CONC 32.9 g/dl (32.0-36.5); MEAN CORPUSCULAR VOLUME 88.9 fl (80.0-96.0); MONO # 0.5 10^3/uL (0.0-0.8); MONO % 5.3 % (2.0-8.0); NEUTROPHILS # 7.1 10^3/uL (1.5-8.5); NEUTROPHILS % 71.6 % (36.0-66.0); PLATELET COUNT, AUTOMATED 199 10^3/uL (150-450); RED BLOOD COUNT 2.87 10^6/uL (4.30-6.10); WHITE BLOOD COUNT 9.9 10^3/uL (4.0-10.0)
[2024-03-16 06:29] LABS: ALBUMIN 2.1 G/DL (3.2-5.2); ALKALINE PHOSPHATASE 57 U/L (46-116); ALT/SGPT 9 U/L (7.0-40); AST/SGOT 18 U/L (<34); BILIRUBIN,TOTAL 0.2 MG/DL (0.3-1.2); BLOOD UREA NITROGEN 62 MG/DL (9-23); CALCIUM LEVEL 8.4 MG/DL (8.3-10.6); CARBON DIOXIDE LEVEL 21 MMOL/L (20-31); CHLORIDE LEVEL 111 MMOL/L (98-107); CREATININE FOR GFR 4.29 MG/DL (0.70-1.30); GLUCOSE, FASTING 140 MG/DL (74-106); MAGNESIUM LEVEL 1.9 MG/DL (1.8-2.4); SODIUM LEVEL 140 MMOL/L (136-145); THYROXINE (T4) 2.2 UG/DL (4.5-10.9); TOTAL PROTEIN 5.1 G/DL (5.7-8.2)
[2024-03-16 07:11] LABS: FREE THYROXINE INDEX 0.8 % (1.4-3.8); T UPTAKE 35.9 % (22.5-37.0)
[2024-03-16 07:22] LABS: THYROID STIMULATING HORMONE > 150.000 uIU/ML (0.55-4.78)
[2024-03-16 09:22] LABS: FREE T4 0.24 NG/DL (0.89-1.76)
[2024-03-16] MEDS ORDERED: SODIUM CHLORIDE 0.9% INJ 10 ML SYR IV PRN (11:00)
[2024-03-16 12:47] VITALS: TEMP 97.7
[2024-03-16 12:49] VITALS: BP 150/82; TEMP 97.7; O2SAT 94
[2024-03-16] MEDS: SODIUM CHLORIDE 0.9% INJ 10 ML SYR IV SCH (17:05)
[2024-03-16] MEDS ORDERED: SODIUM CHLORIDE 0.9% INJ 10 ML SYR IV SCH (18:00)
[2024-03-16 20:21] VITALS: BP 163/82; TEMP 97.7; O2SAT 95
[2024-03-16] MEDS: SODIUM CHLORIDE 0.9% INJ 10 ML SYR IV PRN (21:56)
[2024-03-17] VITALS (9 sets, daily range): BP systolic 143–167; BP diastolic 69–86; TEMP 97.3–97.9; O2SAT 92–96
[2024-03-17 09:10] LABS: BASO # 0.1 10^3/uL (0.0-0.2); BASO % 0.9 % (0.0-1.0); EOS # 0.4 10^3/uL (0.0-0.5); EOS % 4.1 % (0.0-3.0); HEMATOCRIT 23.9 % (42.0-52.0); HEMOGLOBIN 7.9 g/dl (13.5-17.5); LYMPH # 1.5 10^3/uL (1.5-5.0); LYMPH % 14.7 % (24.0-44.0); MEAN CORPUSCULAR HEMOGLOBIN 29.7 pg (27.0-33.0); MEAN CORPUSCULAR HGB CONC 33.1 g/dl (32.0-36.5); MEAN CORPUSCULAR VOLUME 89.8 fl (80.0-96.0); MONO # 0.7 10^3/uL (0.0-0.8); MONO % 6.4 % (2.0-8.0); NEUTROPHILS # 7.2 10^3/uL (1.5-8.5); PLATELET COUNT, AUTOMATED 199 10^3/uL (150-450); RED BLOOD COUNT 2.66 10^6/uL (4.30-6.10); WHITE BLOOD COUNT 10.1 10^3/uL (4.0-10.0)
[2024-03-17 09:29] LABS: ALBUMIN 2.1 G/DL (3.2-5.2); ALKALINE PHOSPHATASE 59 U/L (46-116); ALT/SGPT < 9 U/L (7.0-40); AST/SGOT 15 U/L (<34); BILIRUBIN,TOTAL 0.2 MG/DL (0.3-1.2); BLOOD UREA NITROGEN 54 MG/DL (9-23); CALCIUM LEVEL 8.4 MG/DL (8.3-10.6); CARBON DIOXIDE LEVEL 22 MMOL/L (20-31); CHLORIDE LEVEL 112 MMOL/L (98-107); CREATININE FOR GFR 4.11 MG/DL (0.70-1.30); GLOMERULAR FILTRATION RATE 15.8 (>49); GLUCOSE, FASTING 105 MG/DL (74-106); MAGNESIUM LEVEL 1.9 MG/DL (1.8-2.4); POTASSIUM SERUM 4.3 MMOL/L (3.5-5.1); SODIUM LEVEL 142 MMOL/L (136-145); TOTAL PROTEIN 5.2 G/DL (5.7-8.2)
[2024-03-18] VITALS (8 sets, daily range): BP systolic 132–161; BP diastolic 72–85; TEMP 97.2–98.1; O2SAT 90–93
[2024-03-18] MEDS: LEVOTHYROXINE 100MCG TABLET (0.1MG) PO SCH (05:53)
[2024-03-18] MEDS: LEVOTHYROXINE 75MCG TABLET (0.075MG) PO SCH (05:53)
[2024-03-18 07:44] LABS: BASO # 0.1 10^3/uL (0.0-0.2); BASO % 1.1 % (0.0-1.0); EOS # 0.5 10^3/uL (0.0-0.5); EOS % 4.1 % (0.0-3.0); HEMATOCRIT 23.8 % (42.0-52.0); HEMOGLOBIN 7.6 g/dl (13.5-17.5); LYMPH # 1.8 10^3/uL (1.5-5.0); LYMPH % 16.7 % (24.0-44.0); MEAN CORPUSCULAR HEMOGLOBIN 30.8 pg (27.0-33.0); MEAN CORPUSCULAR HGB CONC 31.9 g/dl (32.0-36.5); MEAN CORPUSCULAR VOLUME 96.4 fl (80.0-96.0); MONO # 0.6 10^3/uL (0.0-0.8); MONO % 5.9 % (2.0-8.0); NEUTROPHILS # 7.5 10^3/uL (1.5-8.5); NEUTROPHILS % 68.9 % (36.0-66.0); RED BLOOD COUNT 2.47 10^6/uL (4.30-6.10); WHITE BLOOD COUNT 10.9 10^3/uL (4.0-10.0)
[2024-03-18 08:21] LABS: ALBUMIN 2.2 G/DL (3.2-5.2); BILIRUBIN,TOTAL 0.3 MG/DL (0.3-1.2); CALCIUM LEVEL 8.5 MG/DL (8.3-10.6); MAGNESIUM LEVEL 1.9 MG/DL (1.8-2.4); POTASSIUM SERUM 4.4 MMOL/L (3.5-5.1); TOTAL PROTEIN 5.6 G/DL (5.7-8.2)
[2024-03-18] MEDS: AMPICILLIN SOD/SULBACTAM SOD 3 GM in D5W MINI-BAG PLUS 100 ML IV SCH (09:26)
[2024-03-18 09:59] LABS: PLATELET COUNT, AUTOMATED 222 10^3/uL (150-450)
[2024-03-18 11:50] LABS: HEMATOCRIT 24.4 % (42.0-52.0)
[2024-03-18 12:47] LABS: CREATININE FOR GFR 4.01 MG/DL (0.70-1.30); GLOMERULAR FILTRATION RATE 16.2 (>49)
[2024-03-18 22:14] LABS: HEMATOCRIT 31.9 % (42.0-52.0)
[2024-03-18 22:17] LABS: HEMOGLOBIN 10.7 g/dl (13.5-17.5)
[2024-03-19 04:45] VITALS: BP 163/86; TEMP 97.7; O2SAT 91
[2024-03-19 05:59] LABS: HEMOGLOBIN 10.4 g/dl (13.5-17.5)
[2024-03-19 06:26] LABS: CALCIUM LEVEL 8.9 MG/DL (8.3-10.6); CREATININE FOR GFR 4.12 MG/DL (0.70-1.30); GLOMERULAR FILTRATION RATE 15.7 (>49); POTASSIUM SERUM 4.2 MMOL/L (3.5-5.1)
[2024-03-19 12:10] VITALS: BP 154/82; TEMP 98; O2SAT 93
[2024-03-19 19:48] VITALS: BP 152/89; TEMP 97.9; O2SAT 91
[2024-03-20 04:18] VITALS: BP 156/89; TEMP 97.9; O2SAT 93
[2024-03-20 07:21] LABS: CREATININE FOR GFR 3.97 MG/DL (0.70-1.30); GLOMERULAR FILTRATION RATE 16.4 (>49); POTASSIUM SERUM 4.3 MMOL/L (3.5-5.1)
[2024-03-20 11:46] VITALS: BP 158/81; TEMP 97.3; O2SAT 93
[2024-03-20 19:43] VITALS: BP 149/89; TEMP 97.7; O2SAT 97
[2024-03-20] MEDS: AUGMENTIN 500MG TAB PO SCH (21:12)
[2024-03-21 04:20] VITALS: BP 150/87; TEMP 97.7; O2SAT 93
[2024-03-21 06:27] LABS: CALCIUM LEVEL 8.9 MG/DL (8.3-10.6); CREATININE FOR GFR 4.17 MG/DL (0.70-1.30); GLOMERULAR FILTRATION RATE 15.5 (>49); MAGNESIUM LEVEL 2.1 MG/DL (1.8-2.4); POTASSIUM SERUM 4.1 MMOL/L (3.5-5.1)
[2024-03-21 12:40] VITALS: BP 156/83; TEMP 96.6; O2SAT 94
[2024-03-21 19:19] VITALS: BP 156/87; TEMP 97.8; O2SAT 96
[2024-03-21] MEDS: HEPARIN SOD (PORCINE) 5000UNITS/ML 1ML VIAL/SYRINGE SQ SCH (21:14)
[2024-03-22 04:19] VITALS: BP 149/84; TEMP 97.5; O2SAT 96
[2024-03-22 07:07] LABS: CALCIUM LEVEL 8.8 MG/DL (8.3-10.6); CREATININE FOR GFR 4.13 MG/DL (0.70-1.30); GLOMERULAR FILTRATION RATE 15.7 (>49); MAGNESIUM LEVEL 2.1 MG/DL (1.8-2.4); POTASSIUM SERUM 3.9 MMOL/L (3.5-5.1)
[2024-03-22 08:19] VITALS: BP 148/85
[2024-03-22] MEDS ORDERED: AMOX500T2 PO (10:42)
[2024-03-22] MEDS ORDERED: SODI325T9 PO (10:42)
[2024-03-22] MEDS ORDERED: LEVO-96 PO (10:42)
[2024-03-22] MEDS ORDERED: AMLO1TAB25 PO (10:43)
== END 2024-03-22 12:15 | disposition other institution (70) | DRG 380 ==
LOC: M ED 21:31 → EDBD 21:31 → M ED INP 03-13 00:36 → M MS5PR 03-13 03:28
PROVIDERS: ADMIT Internal Medicine; ATTEND Student in an Organized Health Care Education/Training Program
PROC: 0JBR0ZZ Excision of Left Foot Subcutaneous Tissue and Fascia, Open Approach (ICD-10-PCS; 2024-03-13)
PROC: 30233N1 Transfusion of Nonautologous Red Blood Cells into Peripheral Vein, Percutaneous Approach (ICD-10-PCS; principal; 2024-03-14)
DX: E11.621 Type 2 diabetes mellitus with foot ulcer (principal); E87.20 Acidosis, unspecified; L89.152 Pressure ulcer of sacral region, stage 2; I13.0 Hypertensive heart and chronic kidney disease with heart failure and stage 1 through stage 4 chronic kidney disease, or unspecified chronic kidney disease; N18.4 Chronic kidney disease, stage 4 (severe); I48.92 Unspecified atrial flutter; I50.22 Chronic systolic (congestive) heart failure; E11.22 Type 2 diabetes mellitus with diabetic chronic kidney disease; M62.82 Rhabdomyolysis; E11.628 Type 2 diabetes mellitus with other skin complications; Z66 Do not resuscitate; D63.1 Anemia in chronic kidney disease; I25.10 Atherosclerotic heart disease of native coronary artery without angina pectoris; E03.9 Hypothyroidism, unspecified; L97.429 Non-pressure chronic ulcer of left heel and midfoot with unspecified severity; I44.0 Atrioventricular block, first degree; L03.116 Cellulitis of left lower limb; I87.2 Venous insufficiency (chronic) (peripheral); K21.9 Gastro-esophageal reflux disease without esophagitis; W07.XXXA Fall from chair, initial encounter; Y92.009 Unspecified place in unspecified non-institutional (private) residence as the place of occurrence of the external cause; Y93.9 Activity, unspecified; Z79.82 Long term (current) use of aspirin; Z79.890 Hormone replacement therapy; Z79.899 Other long term (current) drug therapy; Z95.5 Presence of coronary angioplasty implant and graft; Z86.73 Personal history of transient ischemic attack (TIA), and cerebral infarction without residual deficits; Z98.49 Cataract extraction status, unspecified eye; Z89.412 Acquired absence of left great toe

== ENCOUNTER → 2024-03-22 | Outpatient (REF) | payer OTHER ==
[~2024-03-22] MED LIST changes: +AMLO1TAB25 PO; +AMOX500T2 PO; +LEVO-96 PO
[2024-03-22 13:40] LABS: HEMATOCRIT 30.8 % (42.0-52.0); MEAN CORPUSCULAR HEMOGLOBIN 30.4 pg (27.0-33.0); MEAN CORPUSCULAR HGB CONC 32.5 g/dl (32.0-36.5); MEAN CORPUSCULAR VOLUME 93.6 fl (80.0-96.0); PLATELET COUNT, AUTOMATED 209 10^3/uL (150-450); RED BLOOD COUNT 3.29 10^6/uL (4.30-6.10); WHITE BLOOD COUNT 10.3 10^3/uL (4.0-10.0)
[2024-03-22 13:46] LABS: ERYTHROCYTE SEDIMENTATION RATE 104 mm/hr (0-20)
[2024-03-22 13:52] LABS: HEMOGLOBIN A1c 5.4 % (4.0-6.0)
[2024-03-22 14:05] LABS: C REACTIVE PROTEIN QUANTITATIV 2.9 MG/DL (<1.0)
[2024-03-22 14:07] LABS: ALBUMIN 2.7 G/DL (3.2-5.2); BILIRUBIN,TOTAL 0.3 MG/DL (0.3-1.2); CREATININE FOR GFR 4.04 MG/DL (0.70-1.30); GLOMERULAR FILTRATION RATE 16.1 (>49); MAGNESIUM LEVEL 2.2 MG/DL (1.8-2.4); POTASSIUM SERUM 4.1 MMOL/L (3.5-5.1); TOTAL PROTEIN 6.2 G/DL (5.7-8.2)
== END ==
LOC: SKLAB5 12:52
PROVIDERS: ATTEND Internal Medicine
DX: N18.9 Chronic kidney disease, unspecified (principal); E11.22 Type 2 diabetes mellitus with diabetic chronic kidney disease

== ENCOUNTER → 2024-03-30 | Outpatient (REF) | payer OTHER ==
[~2024-03-30] MED LIST changes: +ACET-907 PO; +AMOX875T2 PO; +ASPI-655 PO; +DULC10SU2 PR; +FLEEENE12 PR; +METO25TA PO; +MILKSUS3 PO; +ROSU40TA63 PO; +SODI650T PO; +SYNT175T2 PO
[2024-03-30 16:02] LABS: APPEARANCE, URINE CLEAR (CLEAR); BACTERIA, URINE AUTO NEGATIVE (NEGATIVE); BILIRUBIN, URINE AUTO NEGATIVE (NEGATIVE); BLOOD, URINE BLOOD NEGATIVE (NEGATIVE); COLOR, URINE YELLOW (YELLOW); GLUCOSE, URINE (UA) AUTO NEGATIVE (NEGATIVE); KETONE, URINE AUTO NEGATIVE (NEGATIVE); LEUKOCYTE ESTERASE, URINE AUTO NEGATIVE (NEGATIVE); MUCUS, URINE SMALL (NEGATIVE); NITRITE, URINE AUTO NEGATIVE (NEGATIVE); PROTEIN, URINE AUTO 2+ mg/dL (NEGATIVE); RBC, URINE AUTO 0 /HPF (0-3); SPECIFIC GRAVITY URINE AUTO 1.015 (1.002-1.035); SQUAMOUS EPITHELIAL CELL UR AU 0 /HPF (0-6); UROBILINOGEN, URINE AUTO 0.2 mg/dL (0.0-2.0); WBC, URINE AUTO 1 /HPF (0-3)
[2024-03-30 17:07] LABS: BASO # 0.1 10^3/uL (0.0-0.2); EOS # 0.4 10^3/uL (0.0-0.5); EOS % 3.7 % (0.0-3.0); HEMATOCRIT 29.5 % (42.0-52.0); HEMOGLOBIN 9.3 g/dl (13.5-17.5); LYMPH # 1.7 10^3/uL (1.5-5.0); MEAN CORPUSCULAR HEMOGLOBIN 29.8 pg (27.0-33.0); MEAN CORPUSCULAR HGB CONC 31.5 g/dl (32.0-36.5); MEAN CORPUSCULAR VOLUME 94.6 fl (80.0-96.0); MONO # 0.9 10^3/uL (0.0-0.8); MONO % 7.8 % (2.0-8.0); NEUTROPHILS % 71.6 % (36.0-66.0); PLATELET COUNT, AUTOMATED 254 10^3/uL (150-450); RED BLOOD COUNT 3.12 10^6/uL (4.30-6.10); WHITE BLOOD COUNT 11.2 10^3/uL (4.0-10.0)
[2024-03-30 17:26] LABS: CALCIUM LEVEL 9.1 MG/DL (8.3-10.6); CREATININE FOR GFR 4.02 MG/DL (0.70-1.30); GLOMERULAR FILTRATION RATE 16.2 (>49); MAGNESIUM LEVEL 1.9 MG/DL (1.8-2.4); PHOSPHORUS LEVEL 4.4 MG/DL (2.4-5.1); POTASSIUM SERUM 5.1 MMOL/L (3.5-5.1)
[2024-03-30 17:27] LABS: PTH INTACT 28.7 PG/ML (18.5-88.0)
== END ==
LOC: SKLAB5 14:28
PROVIDERS: ATTEND Internal Medicine
DX: N18.9 Chronic kidney disease, unspecified (principal)

== ENCOUNTER 2024-03-31 02:23 | Inpatient (IN) | payer OTHER ==
[~2024-03-31] VITALS: Ht 175.3 cm; Wt 112.5 kg
[2024-03-31] VITALS (23 sets, daily range): BP systolic 116–150; BP diastolic 53–94; TEMP 97.2–97.5; O2SAT 87–99
[~2024-03-31 02:23] MED LIST changes: -ACET-907 PO; -AMOX875T2 PO; -ASPI-655 PO; -DULC10SU2 PR; -FLEEENE12 PR; -METO25TA PO; -MILKSUS3 PO; -ROSU40TA63 PO; -SODI650T PO; -SYNT175T2 PO
[2024-03-31] MEDS: FUROSEMIDE 100MG/10ML VIAL IV ONE ×2 (02:52→20:43)
[2024-03-31 02:55] LABS: ABG BASE EXCESS -1.6 (-2.0-2.0); ABG O2 SATURATION 93.7 % (95.0-99.0); ABG PARTIAL PRESSURE O2 69.2 mmHg (75.0-100.0); ABG STANDARD HCO3 23.1 MMOL/L. (22.0-26.0); ABG pH (ARTERIAL) 7.442 UNITS (7.350-7.450)
[2024-03-31 03:01] LABS: BASO # 0.2 10^3/uL (0.0-0.2); BASO % 1.2 % (0.0-1.0); EOS # 0.4 10^3/uL (0.0-0.5); EOS % 2.8 % (0.0-3.0); HEMATOCRIT 30.2 % (42.0-52.0); HEMOGLOBIN 9.8 g/dl (13.5-17.5); LYMPH # 2.1 10^3/uL (1.5-5.0); LYMPH % 13.3 % (24.0-44.0); MEAN CORPUSCULAR HEMOGLOBIN 30.7 pg (27.0-33.0); MEAN CORPUSCULAR HGB CONC 32.5 g/dl (32.0-36.5); MEAN CORPUSCULAR VOLUME 94.7 fl (80.0-96.0); MONO # 1.1 10^3/uL (0.0-0.8); MONO % 6.8 % (2.0-8.0); NEUTROPHILS # 11.6 10^3/uL (1.5-8.5); NEUTROPHILS % 74.9 % (36.0-66.0); PLATELET COUNT, AUTOMATED 322 10^3/uL (150-450); RED BLOOD COUNT 3.19 10^6/uL (4.30-6.10); WHITE BLOOD COUNT 15.5 10^3/uL (4.0-10.0)
[2024-03-31 03:24] LABS: CK-MB VALUE MASS 3.1 NG/ML (<3.6)
[2024-03-31 03:25] LABS: MB/CK RELATIVE INDEX 1.61 (< OR =4)
[2024-03-31 03:26] LABS: BILIRUBIN,DIRECT 0.1 MG/DL (<0.4); BILIRUBIN,TOTAL 0.5 MG/DL (0.3-1.2); CALCIUM LEVEL 9.3 MG/DL (8.3-10.6); CREATININE FOR GFR 4.15 MG/DL (0.70-1.30); GLOMERULAR FILTRATION RATE 15.6 (>49); TOTAL PROTEIN 6.8 G/DL (5.7-8.2)
[2024-03-31] MEDS ORDERED: GLUCAGON INJ 1MG VIAL SC PRN (04:50)
[2024-03-31] MEDS ORDERED: GLUCOSE 4 GM CHEW PO PRN (04:50)
[2024-03-31] MEDS ORDERED: DEXTROSE 50% 50ML SYRINGE IV PRN (04:50)
[2024-03-31] MEDS: FUROSEMIDE 100MG/10ML VIAL IV STA (05:16)
[2024-03-31 05:17] LABS: CK-MB VALUE MASS 14.8 NG/ML (<3.6)
[2024-03-31 05:32] LABS: MB/CK RELATIVE INDEX 3.41 (< OR =4)
[2024-03-31] MEDS: LEVOTHYROXINE 100MCG TABLET (0.1MG) PO SCH (06:00)
[2024-03-31] MEDS: LEVOTHYROXINE 75MCG TABLET (0.075MG) PO SCH (06:00)
[2024-03-31] MEDS ORDERED: AMLO1TAB25 PO (06:03)
[2024-03-31] MEDS ORDERED: FLEEENE12 PR (06:03)
[2024-03-31] MEDS ORDERED: ACET-907 PO (06:03)
[2024-03-31] MEDS ORDERED: AMOX500T2 PO (06:03)
[2024-03-31] MEDS ORDERED: SODI650T PO (06:03)
[2024-03-31] MEDS ORDERED: SYNT175T2 PO (06:03)
[2024-03-31] MEDS ORDERED: MILKSUS3 PO (06:03)
[2024-03-31] MEDS ORDERED: DULC10SU2 PR (06:03)
[2024-03-31] MEDS ORDERED: ASPI-655 PO (06:03)
[2024-03-31] MEDS ORDERED: HOME MED LIST COMPLETE! XX SCH (06:05)
[2024-03-31] MEDS: PIPERACILLIN/TAZOBACTAM SOD 4.5 GM in D5W MINI-BAG PLUS 50 ML IV SCH (07:25)
[2024-03-31] MEDS: ASPIRIN 81MG ENTERIC TABLET PO SCH (07:26)
[2024-03-31] MEDS: PANTOPRAZOLE 40MG VIAL IV SCH (07:26)
[2024-03-31] MEDS: HEPARIN DRIP 25,000 UNITS in IV 1 EA IV SCH (09:06)
[2024-03-31] MEDS: INSULIN LISPRO (NovoLOG) PER UNIT SC SCH ×3 (09:32→20:44)
[2024-03-31] MEDS: VANCOMYCIN HCL 1,000 MG, VIAL MATE ADAPTER 1 EACH in D5W 250 ML IV ONE (10:09)
[2024-03-31] MEDS: SODIUM CHLORIDE 0.9% INJ 10 ML SYR IV SCH (12:05)
[2024-03-31] MEDS ORDERED: SODIUM CHLORIDE 0.9% INJ 10 ML SYR IV PRN (12:05)
[2024-03-31] MEDS ORDERED: BISACODYL 10MG SUPP PR PRN (12:40)
[2024-03-31] MEDS ORDERED: MOM 30ML SUSPENSION UDC PO PRN (12:40)
[2024-03-31] MEDS ORDERED: HEPARIN SOD (PORCINE) 5000UNITS/ML 1ML VIAL/SYRINGE SC SCH (14:00)
[2024-03-31] MEDS: FUROSEMIDE 40MG/4ML VIAL IV ONE (14:29)
[2024-03-31] MEDS: SITagliptin 50 MG TAB (JANUVIA) PO SCH (14:30)
[2024-03-31] MEDS: (RENVELA) SEVELAMER **CARBONate** 800 MG TAB PO SCH (14:30)
[2024-03-31] MEDS: METOPROLOL TART 25 MG TABLET PO SCH (14:31)
[2024-03-31] MEDS: CALCITRIOL 0.25 MCG CAP (S0169) PO SCH (14:31)
[2024-03-31] MEDS: SODIUM BICARBONATE 325 MG TAB PO SCH (15:08)
[2024-03-31] MEDS: ROSUVASTATIN 10 MG TAB (CRESTOR) PO SCH (15:12)
[2024-03-31] MEDS: ASPIRIN 81MG CHEW TABLET PO ONE (15:14)
[2024-03-31] MEDS: metOLazone 5 MG TAB PO STA (15:47)
[2024-03-31 16:35] LABS: C REACTIVE PROTEIN QUANTITATIV 12.6 MG/DL (<1.0)
[2024-03-31 16:37] LABS: ALBUMIN 2.8 G/DL (3.2-5.2); CALCIUM LEVEL 9.4 MG/DL (8.3-10.6); CREATININE FOR GFR 4.19 MG/DL (0.70-1.30); GLOMERULAR FILTRATION RATE 15.4 (>49); PHOSPHORUS LEVEL 4.5 MG/DL (2.4-5.1); POTASSIUM SERUM 4.5 MMOL/L (3.5-5.1)
[2024-03-31] MEDS: HEPARIN SOD (PORCINE) 5000UNITS/ML 1ML VIAL/SYRINGE IV PRN (16:52)
[2024-03-31 17:05] LABS: PROCALCITONIN 1.07 ng/ml
[2024-03-31] MEDS: CEFEPIME HCL 1 GM in D5W MINI-BAG PLUS 50 ML IV SCH (17:41)
[2024-03-31] MEDS: CARVedilol 6.25 MG TAB PO SCH (18:00)
[2024-03-31 18:31] LABS: ABG BASE EXCESS 2.1 (-2.0-2.0); ABG HCO3 26.3 MMOL/L (22.0-26.0); ABG O2 SATURATION 64.8 % (95.0-99.0); ABG PARTIAL PRESSURE CO2 39.2 mmHg (35.0-45.0); ABG STANDARD HCO3 25.7 MMOL/L. (22.0-26.0); ABG TOTAL CO2 27.5 MMOL/L (23.0-31.0); ABG pH (ARTERIAL) 7.444 UNITS (7.350-7.450)
[2024-03-31 18:36] LABS: ABG PARTIAL PRESSURE O2 33.4 mmHg (75.0-100.0)
[2024-03-31 20:28] LABS: ABG BASE EXCESS 1.7 (-2.0-2.0); ABG HCO3 24.6 MMOL/L (22.0-26.0); ABG O2 SATURATION 95.5 % (95.0-99.0); ABG PARTIAL PRESSURE CO2 32.4 mmHg (35.0-45.0); ABG PARTIAL PRESSURE O2 74.5 mmHg (75.0-100.0); ABG STANDARD HCO3 25.9 MMOL/L. (22.0-26.0); ABG TOTAL CO2 25.6 MMOL/L (23.0-31.0); ABG pH (ARTERIAL) 7.498 UNITS (7.350-7.450)
[2024-03-31] MEDS ORDERED: TORSEMIDE 100 MG TAB PO ONE (21:00)
[2024-03-31] MEDS: ISOSORBIDE DIN. (ISORDIL) 30 MG TAB PO SCH (21:19)
[2024-03-31] MEDS ORDERED: BUMETANIDE 1MG/4ML VIAL IV SCH (22:00)
[2024-04-01] VITALS (19 sets, daily range): BP systolic 110–122; BP diastolic 58–68; TEMP 97.6–98.4; O2SAT 91–100
[2024-04-01 06:42] LABS: BASO # 0.1 10^3/uL (0.0-0.2); BASO % 0.8 % (0.0-1.0); EOS # 0.3 10^3/uL (0.0-0.5); EOS % 2.9 % (0.0-3.0); HEMATOCRIT 24.8 % (42.0-52.0); HEMOGLOBIN 7.9 g/dl (13.5-17.5); LYMPH # 1.6 10^3/uL (1.5-5.0); LYMPH % 16.2 % (24.0-44.0); MEAN CORPUSCULAR HEMOGLOBIN 29.8 pg (27.0-33.0); MEAN CORPUSCULAR HGB CONC 31.9 g/dl (32.0-36.5); MEAN CORPUSCULAR VOLUME 93.6 fl (80.0-96.0); MONO # 0.8 10^3/uL (0.0-0.8); MONO % 7.9 % (2.0-8.0); NEUTROPHILS # 6.9 10^3/uL (1.5-8.5); NEUTROPHILS % 71.7 % (36.0-66.0); PLATELET COUNT, AUTOMATED 242 10^3/uL (150-450); RED BLOOD COUNT 2.65 10^6/uL (4.30-6.10); WHITE BLOOD COUNT 9.6 10^3/uL (4.0-10.0)
[2024-04-01 07:04] LABS: ALBUMIN 2.6 G/DL (3.2-5.2); CALCIUM LEVEL 9.2 MG/DL (8.3-10.6); CREATININE FOR GFR 4.47 MG/DL (0.70-1.30); GLOMERULAR FILTRATION RATE 14.3 (>49); PHOSPHORUS LEVEL 5.2 MG/DL (2.4-5.1); POTASSIUM SERUM 4.4 MMOL/L (3.5-5.1)
[2024-04-01 07:16] LABS: PROCALCITONIN 1.79 ng/ml
[2024-04-01] MEDS: metOLazone 2.5 MG TAB PO SCH (09:01)
[2024-04-01] MEDS: ASPIRIN 81MG CHEW TABLET PO SCH (09:01)
[2024-04-01] MEDS: ENOXAPARIN 40MG/0.4ML SYRINGE (J1650 PER 10MG) SC SCH (09:01)
[2024-04-01] MEDS: TORSEMIDE 100 MG TAB PO SCH (09:02)
[2024-04-01 11:31] LABS: INR 1.4; PARTIAL THROMBOPLASTIN TIME 47.6 SECONDS (24.8-34.2); PROTHROMBIN TIME 16.7 SECONDS (12.5-14.5)
[2024-04-01] MEDS: HEPARIN SOD (PORCINE) 5000UNITS/ML 1ML VIAL/SYRINGE SQ SCH (15:02)
[2024-04-01] MEDS ORDERED: CEFTAROLINE FOSAMIL 600 MG in D5W MINI-BAG PLUS 50 ML IV SCH (16:00)
[2024-04-01] MEDS: CEFEPIME HCL 1 GM in D5W MINI-BAG PLUS 50 ML IV SCH (17:23)
[2024-04-01 19:15] LABS: ALBUMIN 2.5 G/DL (3.2-5.2); CALCIUM LEVEL 9.1 MG/DL (8.3-10.6); CREATININE FOR GFR 4.55 MG/DL (0.70-1.30); PHOSPHORUS LEVEL 5.1 MG/DL (2.4-5.1); POTASSIUM SERUM 4.4 MMOL/L (3.5-5.1)
[2024-04-01] MEDS: CEFTAROLINE FOSAMIL 300 MG in D5W 50 ML IV SCH (19:22)
[2024-04-02] VITALS (11 sets, daily range): BP systolic 110–132; BP diastolic 66–88; TEMP 97.1–98.6; O2SAT 93–98
[2024-04-02 06:11] LABS: BASO # 0.1 10^3/uL (0.0-0.2); EOS # 0.4 10^3/uL (0.0-0.5); EOS % 4.4 % (0.0-3.0); HEMATOCRIT 22.4 % (42.0-52.0); HEMOGLOBIN 7.3 g/dl (13.5-17.5); LYMPH # 1.2 10^3/uL (1.5-5.0); LYMPH % 15.4 % (24.0-44.0); MEAN CORPUSCULAR HEMOGLOBIN 30.5 pg (27.0-33.0); MEAN CORPUSCULAR HGB CONC 32.6 g/dl (32.0-36.5); MEAN CORPUSCULAR VOLUME 93.7 fl (80.0-96.0); MONO # 0.7 10^3/uL (0.0-0.8); MONO % 8.4 % (2.0-8.0); NEUTROPHILS # 5.5 10^3/uL (1.5-8.5); NEUTROPHILS % 69.8 % (36.0-66.0); PLATELET COUNT, AUTOMATED 213 10^3/uL (150-450); RED BLOOD COUNT 2.39 10^6/uL (4.30-6.10); WHITE BLOOD COUNT 7.9 10^3/uL (4.0-10.0)
[2024-04-02 06:39] LABS: ALBUMIN 2.6 G/DL (3.2-5.2); CALCIUM LEVEL 9.1 MG/DL (8.3-10.6); CREATININE FOR GFR 4.71 MG/DL (0.70-1.30); GLOMERULAR FILTRATION RATE 13.5 (>49); MAGNESIUM LEVEL 1.9 MG/DL (1.8-2.4); POTASSIUM SERUM 4.3 MMOL/L (3.5-5.1)
[2024-04-02 11:26] LABS: ERYTHROCYTE SEDIMENTATION RATE 70 mm/hr (0-20)
[2024-04-02 11:33] LABS: C REACTIVE PROTEIN QUANTITATIV 17.8 MG/DL (<1.0)
[2024-04-02 11:46] LABS: PROCALCITONIN 1.51 ng/ml
[2024-04-02 14:22] LABS: HEMATOCRIT 25.2 % (42.0-52.0); HEMOGLOBIN 8.1 g/dl (13.5-17.5)
[2024-04-02 19:10] LABS: ALBUMIN 2.7 G/DL (3.2-5.2); CALCIUM LEVEL 9.2 MG/DL (8.3-10.6); CREATININE FOR GFR 4.81 MG/DL (0.70-1.30); GLOMERULAR FILTRATION RATE 13.2 (>49); PHOSPHORUS LEVEL 5.4 MG/DL (2.4-5.1); POTASSIUM SERUM 4.3 MMOL/L (3.5-5.1)
[2024-04-03 04:43] VITALS: BP 126/75; TEMP 97.2; O2SAT 96
[2024-04-03 05:42] LABS: BASO # 0.1 10^3/uL (0.0-0.2); BASO % 1.4 % (0.0-1.0); EOS # 0.4 10^3/uL (0.0-0.5); EOS % 5.1 % (0.0-3.0); HEMATOCRIT 25.3 % (42.0-52.0); HEMOGLOBIN 8.2 g/dl (13.5-17.5); LYMPH # 1.4 10^3/uL (1.5-5.0); LYMPH % 17.8 % (24.0-44.0); MEAN CORPUSCULAR HEMOGLOBIN 29.7 pg (27.0-33.0); MEAN CORPUSCULAR HGB CONC 32.4 g/dl (32.0-36.5); MEAN CORPUSCULAR VOLUME 91.7 fl (80.0-96.0); MONO # 0.7 10^3/uL (0.0-0.8); MONO % 8.3 % (2.0-8.0); NEUTROPHILS # 5.3 10^3/uL (1.5-8.5); NEUTROPHILS % 66.8 % (36.0-66.0); PLATELET COUNT, AUTOMATED 214 10^3/uL (150-450); RED BLOOD COUNT 2.76 10^6/uL (4.30-6.10); WHITE BLOOD COUNT 7.9 10^3/uL (4.0-10.0)
[2024-04-03 06:16] LABS: ALBUMIN 2.6 G/DL (3.2-5.2); CREATININE FOR GFR 5.08 MG/DL (0.70-1.30); GLOMERULAR FILTRATION RATE 12.4 (>49); MAGNESIUM LEVEL 2.1 MG/DL (1.8-2.4); PHOSPHORUS LEVEL 5.6 MG/DL (2.4-5.1); POTASSIUM SERUM 4.2 MMOL/L (3.5-5.1)
[2024-04-03 07:39] VITALS: BP 120/68; TEMP 97.5; O2SAT 96
[2024-04-03] MEDS: PANTOPRAZOLE 40MG TAB (PROTONIX) PO SCH (08:45)
[2024-04-03 08:56] LABS: C REACTIVE PROTEIN QUANTITATIV 13.1 MG/DL (<1.0)
[2024-04-03 09:10] LABS: PROCALCITONIN 1.29 ng/ml
[2024-04-03 12:13] VITALS: BP 115/59; TEMP 97.4; O2SAT 96
[2024-04-03] MEDS: PIPERACILLIN/TAZOBACTAM SOD 2.25 GM in D5W MINI-BAG PLUS 50 ML IV SCH (14:00)
[2024-04-03 15:51] VITALS: BP 120/80; TEMP 97.3; O2SAT 95
[2024-04-03 19:00] LABS: ALBUMIN 2.6 G/DL (3.2-5.2); CALCIUM LEVEL 8.8 MG/DL (8.3-10.6); CREATININE FOR GFR 5.31 MG/DL (0.70-1.30); GLOMERULAR FILTRATION RATE 11.7 (>49); MAGNESIUM LEVEL 2.1 MG/DL (1.8-2.4); PHOSPHORUS LEVEL 5.2 MG/DL (2.4-5.1); POTASSIUM SERUM 4.1 MMOL/L (3.5-5.1)
[2024-04-03 19:32] VITALS: BP 114/65; TEMP 97.5; O2SAT 97
[2024-04-03 23:00] VITALS: BP 111/56; TEMP 97.8; O2SAT 93
[2024-04-04 03:52] VITALS: BP 125/68; TEMP 97.2; O2SAT 93
[2024-04-04 06:07] LABS: BASO # 0.1 10^3/uL (0.0-0.2); BASO % 1.2 % (0.0-1.0); EOS # 0.6 10^3/uL (0.0-0.5); EOS % 6.1 % (0.0-3.0); HEMATOCRIT 24.9 % (42.0-52.0); HEMOGLOBIN 8.1 g/dl (13.5-17.5); LYMPH # 1.6 10^3/uL (1.5-5.0); LYMPH % 17.9 % (24.0-44.0); MEAN CORPUSCULAR HEMOGLOBIN 29.9 pg (27.0-33.0); MEAN CORPUSCULAR HGB CONC 32.5 g/dl (32.0-36.5); MEAN CORPUSCULAR VOLUME 91.9 fl (80.0-96.0); MONO # 0.8 10^3/uL (0.0-0.8); MONO % 8.6 % (2.0-8.0); NEUTROPHILS # 5.9 10^3/uL (1.5-8.5); NEUTROPHILS % 65.3 % (36.0-66.0); PLATELET COUNT, AUTOMATED 223 10^3/uL (150-450); RED BLOOD COUNT 2.71 10^6/uL (4.30-6.10)
[2024-04-04 06:34] LABS: ALBUMIN 2.7 G/DL (3.2-5.2); CALCIUM LEVEL 9.3 MG/DL (8.3-10.6); CREATININE FOR GFR 5.77 MG/DL (0.70-1.30); GLOMERULAR FILTRATION RATE 10.7 (>49); MAGNESIUM LEVEL 2.2 MG/DL (1.8-2.4); PHOSPHORUS LEVEL 5.2 MG/DL (2.4-5.1); POTASSIUM SERUM 4.7 MMOL/L (3.5-5.1)
[2024-04-04 08:00] VITALS: BP 118/67; TEMP 98.1; O2SAT 97
[2024-04-04] MEDS: MIRALAX *UNIT DOSE* 17GM PACKET PO SCH (08:35)
[2024-04-04] MEDS: METAMUCIL (PSYLLIUM) PACKET PO SCH (11:35)
[2024-04-04 12:00] VITALS: BP 124/67; TEMP 97.5; O2SAT 99
[2024-04-04] MEDS ORDERED: SENNA 8.6 MG TAB (SENOKOT) PO PRN (12:00)
[2024-04-04 12:53] LABS: PERCENT SATURATION 28.1 % (19.7-50.0)
[2024-04-04 13:16] VITALS: BP 130/70
[2024-04-04 15:57] VITALS: BP 134/73; TEMP 97.2; O2SAT 92
[2024-04-04 18:49] LABS: ALBUMIN 2.8 G/DL (3.2-5.2); CALCIUM LEVEL 8.9 MG/DL (8.3-10.6); CREATININE FOR GFR 5.68 MG/DL (0.70-1.30); GLOMERULAR FILTRATION RATE 10.9 (>49); MAGNESIUM LEVEL 2.2 MG/DL (1.8-2.4); PHOSPHORUS LEVEL 5.3 MG/DL (2.4-5.1); POTASSIUM SERUM 4.1 MMOL/L (3.5-5.1)
[2024-04-04 19:00] VITALS: BP 144/65; TEMP 97.2; O2SAT 94
[2024-04-04] MEDS: CARVedilol 6.25 MG TAB PO SCH (21:19)
[2024-04-05] VITALS (8 sets, daily range): BP systolic 118–131; BP diastolic 66–73; TEMP 96.9–97.4; O2SAT 80–98
[2024-04-05 06:51] LABS: BASO # 0.1 10^3/uL (0.0-0.2); BASO % 1.2 % (0.0-1.0); EOS # 0.6 10^3/uL (0.0-0.5); EOS % 6.7 % (0.0-3.0); HEMATOCRIT 24.1 % (42.0-52.0); HEMOGLOBIN 7.9 g/dl (13.5-17.5); LYMPH # 1.7 10^3/uL (1.5-5.0); LYMPH % 18.9 % (24.0-44.0); MEAN CORPUSCULAR HEMOGLOBIN 30.2 pg (27.0-33.0); MEAN CORPUSCULAR HGB CONC 32.8 g/dl (32.0-36.5); MONO # 0.7 10^3/uL (0.0-0.8); MONO % 7.6 % (2.0-8.0); NEUTROPHILS # 5.8 10^3/uL (1.5-8.5); NEUTROPHILS % 64.6 % (36.0-66.0); PLATELET COUNT, AUTOMATED 228 10^3/uL (150-450); RED BLOOD COUNT 2.62 10^6/uL (4.30-6.10)
[2024-04-05 07:13] LABS: ALBUMIN 2.7 G/DL (3.2-5.2); CALCIUM LEVEL 9.3 MG/DL (8.3-10.6); CREATININE FOR GFR 5.8 MG/DL (0.70-1.30); GLOMERULAR FILTRATION RATE 10.6 (>49); MAGNESIUM LEVEL 2.3 MG/DL (1.8-2.4); PHOSPHORUS LEVEL 5.2 MG/DL (2.4-5.1); POTASSIUM SERUM 4.2 MMOL/L (3.5-5.1)
[2024-04-05] MEDS ORDERED: METO25TA PO (10:47)
[2024-04-05] MEDS ORDERED: ROSU40TA63 PO (10:47)
[2024-04-05] MEDS ORDERED: TORS100T PO (10:48)
[2024-04-05] MEDS: BACITRACIN OINTMENT 30GM TUBE TOP ONE (11:43)
[2024-04-05] MEDS ORDERED: AMOX875T2 PO (13:00)
== END 2024-04-05 12:30 | DRG 190 ==
LOC: M ED 02:23 → M ED INP 04:43 → EDBEDREQSVC 04:45 → M ICU 06:47 → M PCU 21:49
PROVIDERS: ADMIT Preventive Medicine Undersea and Hyperbaric Medicine; ATTEND Student in an Organized Health Care Education/Training Program
PROC: 30233N1 Transfusion of Nonautologous Red Blood Cells into Peripheral Vein, Percutaneous Approach (ICD-10-PCS; principal; 2024-04-02)
DX: I21.4 Non-ST elevation (NSTEMI) myocardial infarction (principal); I13.2 Hypertensive heart and chronic kidney disease with heart failure and with stage 5 chronic kidney disease, or end stage renal disease; I27.20 Pulmonary hypertension, unspecified; J96.01 Acute respiratory failure with hypoxia; L89.152 Pressure ulcer of sacral region, stage 2; E11.22 Type 2 diabetes mellitus with diabetic chronic kidney disease; E66.2 Morbid (severe) obesity with alveolar hypoventilation; N17.9 Acute kidney failure, unspecified; J81.0 Acute pulmonary edema; E11.42 Type 2 diabetes mellitus with diabetic polyneuropathy; E88.09 Other disorders of plasma-protein metabolism, not elsewhere classified; I27.81 Cor pulmonale (chronic); I48.92 Unspecified atrial flutter; I50.82 Biventricular heart failure; D63.1 Anemia in chronic kidney disease; E03.9 Hypothyroidism, unspecified; E78.5 Hyperlipidemia, unspecified; I25.10 Atherosclerotic heart disease of native coronary artery without angina pectoris; I44.0 Atrioventricular block, first degree; K21.9 Gastro-esophageal reflux disease without esophagitis; Z68.39 Body mass index [BMI] 39.0-39.9, adult; Z95.1 Presence of aortocoronary bypass graft; I24.89 Other forms of acute ischemic heart disease; N18.6 End stage renal disease; I48.0 Paroxysmal atrial fibrillation; Z89.429 Acquired absence of other toe(s), unspecified side; Z91.119 Patient's noncompliance with dietary regimen due to unspecified reason

== ENCOUNTER → 2024-04-08 | Outpatient (REF) | payer OTHER ==
[~2024-04-08] MED LIST changes: +ACET-907 PO; +AMOX875T2 PO; +ASPI-655 PO; +DULC10SU2 PR; +FLEEENE12 PR; +METO25TA PO; +MILKSUS3 PO; +ROSU40TA63 PO; +SODI650T PO; +SYNT175T2 PO
[2024-04-08 10:41] LABS: BASO # 0.1 10^3/uL (0.0-0.2); EOS # 0.5 10^3/uL (0.0-0.5); EOS % 3.8 % (0.0-3.0); HEMATOCRIT 25.3 % (42.0-52.0); HEMOGLOBIN 8.3 g/dl (13.5-17.5); LYMPH # 1.1 10^3/uL (1.5-5.0); LYMPH % 8.5 % (24.0-44.0); MEAN CORPUSCULAR HEMOGLOBIN 30.2 pg (27.0-33.0); MEAN CORPUSCULAR HGB CONC 32.8 g/dl (32.0-36.5); MONO # 0.8 10^3/uL (0.0-0.8); MONO % 6.4 % (2.0-8.0); NEUTROPHILS # 9.8 10^3/uL (1.5-8.5); NEUTROPHILS % 78.9 % (36.0-66.0); PLATELET COUNT, AUTOMATED 217 10^3/uL (150-450); RED BLOOD COUNT 2.75 10^6/uL (4.30-6.10); WHITE BLOOD COUNT 12.4 10^3/uL (4.0-10.0)
[2024-04-08 11:17] LABS: ALBUMIN 3.1 G/DL (3.2-5.2); CALCIUM LEVEL 9.6 MG/DL (8.3-10.6); CREATININE FOR GFR 6.09 MG/DL (0.70-1.30); MAGNESIUM LEVEL 2.2 MG/DL (1.8-2.4); PHOSPHORUS LEVEL 5.5 MG/DL (2.4-5.1); POTASSIUM SERUM 4.1 MMOL/L (3.5-5.1); PTH INTACT 39.8 PG/ML (18.5-88.0)
[2024-04-08 11:40] LABS: APPEARANCE, URINE CLEAR (CLEAR); BACTERIA, URINE AUTO NEGATIVE (NEGATIVE); BILIRUBIN, URINE AUTO NEGATIVE (NEGATIVE); BLOOD, URINE BLOOD 1+ (NEGATIVE); COLOR, URINE STRAW (YELLOW); GLUCOSE, URINE (UA) AUTO NEGATIVE (NEGATIVE); KETONE, URINE AUTO NEGATIVE (NEGATIVE); LEUKOCYTE ESTERASE, URINE AUTO NEGATIVE (NEGATIVE); MUCUS, URINE SMALL (NEGATIVE); NITRITE, URINE AUTO NEGATIVE (NEGATIVE); PROTEIN, URINE AUTO 1+ mg/dL (NEGATIVE); RBC, URINE AUTO 0 /HPF (0-3); SQUAMOUS EPITHELIAL CELL UR AU 0 /HPF (0-6); UROBILINOGEN, URINE AUTO 0.2 mg/dL (0.0-2.0); WBC, URINE AUTO 0 /HPF (0-3)
== END ==
LOC: SKLAB5 09:09
PROVIDERS: ATTEND Internal Medicine
DX: N18.9 Chronic kidney disease, unspecified (principal)

== ENCOUNTER → 2024-04-14 | Outpatient (REF) | payer OTHER | LOC: SKLAB5 13:54 | PROVIDERS: ATTEND Internal Medicine | DX: D64.9 Anemia, unspecified (principal) ==

== ENCOUNTER → 2024-04-21 | Outpatient (REF) | payer OTHER | LOC: SKLAB5 15:06 | PROVIDERS: ATTEND Internal Medicine | DX: Z53.8 Procedure and treatment not carried out for other reasons (principal) ==

== ENCOUNTER → 2024-04-21 | Outpatient (REF) | payer OTHER ==
[~2024-04-21] MED LIST changes: +CEFD1CAP9 PO
[2024-04-21 14:01] LABS: HEMATOCRIT 21.2 % (42.0-52.0); MEAN CORPUSCULAR HEMOGLOBIN 29.5 pg (27.0-33.0); MEAN CORPUSCULAR HGB CONC 32.5 g/dl (32.0-36.5); MEAN CORPUSCULAR VOLUME 90.6 fl (80.0-96.0); PLATELET COUNT, AUTOMATED 231 10^3/uL (150-450); RED BLOOD COUNT 2.34 10^6/uL (4.30-6.10); WHITE BLOOD COUNT 13.4 10^3/uL (4.0-10.0)
[2024-04-21 14:04] LABS: HEMOGLOBIN 6.9 g/dl (13.5-17.5)
[2024-04-21 14:48] LABS: BILIRUBIN,TOTAL 0.4 MG/DL (0.3-1.2); CALCIUM LEVEL 9.9 MG/DL (8.3-10.6); CREATININE FOR GFR 7.1 MG/DL (0.70-1.30); GLOMERULAR FILTRATION RATE 8.4 (>49); PHOSPHORUS LEVEL 7.6 MG/DL (2.4-5.1); TOTAL PROTEIN 7.4 G/DL (5.7-8.2)
[2024-04-21 15:10] LABS: THYROID STIMULATING HORMONE 20.891 uIU/ML (0.55-4.78)
== END ==
LOC: SKLAB5 12:30
PROVIDERS: ATTEND Internal Medicine
DX: R53.81 Other malaise (principal)

== ENCOUNTER → 2024-04-21 | Outpatient (REF) | payer OTHER ==
[~2024-04-21] MED LIST changes: -CEFD1CAP9 PO
== END ==
LOC: SKLAB5 14:41
PROVIDERS: ATTEND Internal Medicine
DX: D64.9 Anemia, unspecified (principal)

== ENCOUNTER 2024-04-22 09:30 | Outpatient (CLI) | payer OTHER | END 2024-04-22 14:10 | LOC: M INFU 09:30 | PROVIDERS: ATTEND Nurse Practitioner Family | DX: D64.9 Anemia, unspecified (principal) | CPT/HCPCS: 36430; P9016 ==

== ENCOUNTER → 2024-04-22 | Outpatient (REF) | payer OTHER ==
[2024-04-22 16:54] LABS: HEMATOCRIT 23.8 % (42.0-52.0); HEMOGLOBIN 8.1 g/dl (13.5-17.5); MEAN CORPUSCULAR HEMOGLOBIN 30.3 pg (27.0-33.0); MEAN CORPUSCULAR VOLUME 89.1 fl (80.0-96.0); PLATELET COUNT, AUTOMATED 223 10^3/uL (150-450); RED BLOOD COUNT 2.67 10^6/uL (4.30-6.10); WHITE BLOOD COUNT 13.8 10^3/uL (4.0-10.0)
[2024-04-22 17:52] LABS: CALCIUM LEVEL 9.7 MG/DL (8.3-10.6); CREATININE FOR GFR 6.76 MG/DL (0.70-1.30); GLOMERULAR FILTRATION RATE 8.9 (>49); POTASSIUM SERUM 3.9 MMOL/L (3.5-5.1)
== END ==
LOC: SKLAB5 12:42
PROVIDERS: ATTEND Internal Medicine
DX: N18.9 Chronic kidney disease, unspecified (principal); D63.1 Anemia in chronic kidney disease

== ENCOUNTER 2024-04-23 15:00 | Emergency (ER) | payer OTHER ==
[~2024-04-23] VITALS: Ht 175.3 cm; Wt 103.6 kg
[2024-04-23 16:15] LABS: BASO # 0.1 10^3/uL (0.0-0.2); BASO % 0.5 % (0.0-1.0); EOS # 0.4 10^3/uL (0.0-0.5); EOS % 3.2 % (0.0-3.0); HEMATOCRIT 24.3 % (42.0-52.0); HEMOGLOBIN 8.3 g/dl (13.5-17.5); LYMPH # 0.6 10^3/uL (1.5-5.0); LYMPH % 4.6 % (24.0-44.0); MEAN CORPUSCULAR HEMOGLOBIN 29.9 pg (27.0-33.0); MEAN CORPUSCULAR HGB CONC 34.2 g/dl (32.0-36.5); MEAN CORPUSCULAR VOLUME 87.4 fl (80.0-96.0); MONO # 0.7 10^3/uL (0.0-0.8); MONO % 4.8 % (2.0-8.0); NEUTROPHILS % 86.5 % (36.0-66.0); PLATELET COUNT, AUTOMATED 246 10^3/uL (150-450); RED BLOOD COUNT 2.78 10^6/uL (4.30-6.10); WHITE BLOOD COUNT 13.8 10^3/uL (4.0-10.0)
[2024-04-23 16:27] LABS: INR 1.52; PROTHROMBIN TIME 17.8 SECONDS (12.5-14.5)
[2024-04-23 16:36] LABS: PERCENT SATURATION 18.9 % (19.7-50.0)
[2024-04-23] MEDS: PANTOPRAZOLE 40MG VIAL IV ONE (16:52)
[2024-04-23 17:27] LABS: FOLATE 12.02 NG/ML (>5.4)
[2024-04-23 17:46] LABS: ALBUMIN 2.8 G/DL (3.2-5.2); BILIRUBIN,TOTAL 0.4 MG/DL (0.3-1.2); CALCIUM LEVEL 9.7 MG/DL (8.3-10.6); CREATININE FOR GFR 6.61 MG/DL (0.70-1.30); FERRITIN 6713.1 NG/ML (10.5-307.3); GLOMERULAR FILTRATION RATE 9.1 (>49); POTASSIUM SERUM 3.8 MMOL/L (3.5-5.1); TOTAL PROTEIN 7.2 G/DL (5.7-8.2)
[2024-04-24 08:04] LABS: HEMATOCRIT 25.5 % (42.0-52.0); HEMOGLOBIN 8.4 g/dl (13.5-17.5); MEAN CORPUSCULAR HEMOGLOBIN 29.6 pg (27.0-33.0); MEAN CORPUSCULAR HGB CONC 32.9 g/dl (32.0-36.5); MEAN CORPUSCULAR VOLUME 89.8 fl (80.0-96.0); PLATELET COUNT, AUTOMATED 223 10^3/uL (150-450); RED BLOOD COUNT 2.84 10^6/uL (4.30-6.10); WHITE BLOOD COUNT 10.4 10^3/uL (4.0-10.0)
[2024-04-24 09:00] VITALS: BP 162/97; TEMP 97.8; O2SAT 98
== END 2024-04-24 09:02 | disposition home or self-care (01) ==
LOC: M ED 15:00
DX: K29.01 Acute gastritis with bleeding (principal); I48.91 Unspecified atrial fibrillation; E11.9 Type 2 diabetes mellitus without complications; I11.0 Hypertensive heart disease with heart failure; D64.9 Anemia, unspecified; N18.6 End stage renal disease; Z79.82 Long term (current) use of aspirin; I73.9 Peripheral vascular disease, unspecified; Z87.891 Personal history of nicotine dependence; Z79.899 Other long term (current) drug therapy
CPT/HCPCS: 80053; 82607; 82728; 82746; 83550; 85025; 85027; 85610; 86850; 86900; 86901; 93005; 93041; 96374; 99285; J2470

== ENCOUNTER → 2024-04-23 | Outpatient (REF) | LOC: SKLAB5 13:07 | PROVIDERS: ATTEND Internal Medicine | DX: R71.0 Precipitous drop in hematocrit (principal) ==

== ENCOUNTER → 2024-04-26 | Outpatient (REF) | payer OTHER ==
[~2024-04-26] MED LIST changes: +CEFD1CAP9 PO
== END ==
LOC: SKLAB5 14:23
PROVIDERS: ATTEND Internal Medicine
DX: K92.0 Hematemesis (principal)

== ENCOUNTER 2024-04-27 15:07 | Emergency (ER) | payer OTHER ==
[~2024-04-27] VITALS: Ht 175.3 cm; Wt 104.0 kg
[~2024-04-27 15:07] MED LIST changes: -CEFD1CAP9 PO
[2024-04-27 16:25] LABS: HEMATOCRIT 23.4 % (42.0-52.0); HEMOGLOBIN 7.7 g/dl (13.5-17.5); MEAN CORPUSCULAR HEMOGLOBIN 29.7 pg (27.0-33.0); MEAN CORPUSCULAR HGB CONC 32.9 g/dl (32.0-36.5); MEAN CORPUSCULAR VOLUME 90.3 fl (80.0-96.0); PLATELET COUNT, AUTOMATED 223 10^3/uL (150-450); RED BLOOD COUNT 2.59 10^6/uL (4.30-6.10); WHITE BLOOD COUNT 15.4 10^3/uL (4.0-10.0)
[2024-04-27 16:44] LABS: INR 1.47; PROTHROMBIN TIME 17.4 SECONDS (12.5-14.5)
[2024-04-27 17:09] LABS: ALBUMIN 2.9 G/DL (3.2-5.2); BILIRUBIN,TOTAL 0.5 MG/DL (0.3-1.2); CALCIUM LEVEL 9.8 MG/DL (8.3-10.6); CREATININE FOR GFR 6.96 MG/DL (0.70-1.30); GLOMERULAR FILTRATION RATE 8.6 (>49); POTASSIUM SERUM 4.3 MMOL/L (3.5-5.1); TOTAL PROTEIN 7.2 G/DL (5.7-8.2)
[2024-04-27 19:21] LABS: THYROID STIMULATING HORMONE 22.179 uIU/ML (0.55-4.78)
[2024-04-27] MEDS: LIDOCAINE 2% 5ML JELLY UROJET TOP ONE (21:25)
[2024-04-27] MEDS ORDERED: CEFD1CAP9 PO (22:45)
[2024-04-27 22:46] VITALS: TEMP 98.7
[2024-04-27] MEDS: cefTRIAXone SOD 1 GM in D5W MINI-BAG PLUS 50 ML IV ONE (22:53)
[2024-04-27 23:00] VITALS: BP 176/99
[2024-04-27 23:31] VITALS: O2SAT 98
== END 2024-04-27 23:45 | disposition home or self-care (01) ==
LOC: EDBD 15:07 → M ED 15:07
DX: N39.0 Urinary tract infection, site not specified (principal); E11.51 Type 2 diabetes mellitus with diabetic peripheral angiopathy without gangrene; I25.10 Atherosclerotic heart disease of native coronary artery without angina pectoris; I11.0 Hypertensive heart disease with heart failure; Z86.73 Personal history of transient ischemic attack (TIA), and cerebral infarction without residual deficits; N18.9 Chronic kidney disease, unspecified; Z95.1 Presence of aortocoronary bypass graft; Z87.891 Personal history of nicotine dependence; Z79.82 Long term (current) use of aspirin; Z79.84 Long term (current) use of oral hypoglycemic drugs; Z79.899 Other long term (current) drug therapy
CPT/HCPCS: 51701; 70450; 71045; 80053; 81001; 82140; 83605; 84443; 85027; 85610; 87088; 87186; 93005; 93041; 94760; 99285; J0696

== ENCOUNTER → 2024-04-27 | Outpatient (REF) | payer OTHER ==
[2024-04-27 12:44] LABS: BASO # 0.1 10^3/uL (0.0-0.2); BASO % 0.5 % (0.0-1.0); EOS # 0.4 10^3/uL (0.0-0.5); EOS % 2.6 % (0.0-3.0); HEMATOCRIT 22.3 % (42.0-52.0); HEMOGLOBIN 7.4 g/dl (13.5-17.5); LYMPH % 6.7 % (24.0-44.0); MEAN CORPUSCULAR HEMOGLOBIN 29.8 pg (27.0-33.0); MEAN CORPUSCULAR HGB CONC 33.2 g/dl (32.0-36.5); MEAN CORPUSCULAR VOLUME 89.9 fl (80.0-96.0); MONO % 6.2 % (2.0-8.0); NEUTROPHILS # 12.7 10^3/uL (1.5-8.5); NEUTROPHILS % 83.3 % (36.0-66.0); PLATELET COUNT, AUTOMATED 216 10^3/uL (150-450); RED BLOOD COUNT 2.48 10^6/uL (4.30-6.10); WHITE BLOOD COUNT 15.3 10^3/uL (4.0-10.0)
[2024-04-27 13:27] LABS: ALBUMIN 2.9 G/DL (3.2-5.2); BILIRUBIN,TOTAL 0.5 MG/DL (0.3-1.2); CALCIUM LEVEL 9.9 MG/DL (8.3-10.6); CREATININE FOR GFR 6.88 MG/DL (0.70-1.30); GLOMERULAR FILTRATION RATE 8.7 (>49); PHOSPHORUS LEVEL 5.4 MG/DL (2.4-5.1); POTASSIUM SERUM 4.4 MMOL/L (3.5-5.1); TOTAL PROTEIN 7.1 G/DL (5.7-8.2)
== END ==
LOC: SKLAB5 11:59
PROVIDERS: ATTEND Internal Medicine
DX: N18.5 Chronic kidney disease, stage 5 (principal); R41.82 Altered mental status, unspecified

== ENCOUNTER → 2024-04-28 | Outpatient (REF) | payer OTHER ==
[~2024-04-28] MED LIST changes: +CEFD1CAP9 PO
[2024-04-28 10:13] LABS: HEMATOCRIT 26.9 % (42.0-52.0); HEMOGLOBIN 8.8 g/dl (13.5-17.5); MEAN CORPUSCULAR HEMOGLOBIN 29.5 pg (27.0-33.0); MEAN CORPUSCULAR HGB CONC 32.7 g/dl (32.0-36.5); MEAN CORPUSCULAR VOLUME 90.3 fl (80.0-96.0); PLATELET COUNT, AUTOMATED 200 10^3/uL (150-450); RED BLOOD COUNT 2.98 10^6/uL (4.30-6.10); WHITE BLOOD COUNT 18.7 10^3/uL (4.0-10.0)
[2024-04-28 10:42] LABS: CREATININE FOR GFR 7.19 MG/DL (0.70-1.30); GLOMERULAR FILTRATION RATE 8.3 (>49); PHOSPHORUS LEVEL 6.2 MG/DL (2.4-5.1); POTASSIUM SERUM 4.1 MMOL/L (3.5-5.1)
== END ==
LOC: SKLAB5 08:35
PROVIDERS: ATTEND Internal Medicine
DX: N18.5 Chronic kidney disease, stage 5 (principal)